=== PATIENT | male | born 1960 | race Asian ===

== ENCOUNTER 2019-02-20 01:31 | Inpatient (IN) ==
[2019-02-20] MEDS ORDERED: THIAMINE 100 MG in NS 50 ML IV ONE (03:12)
[2019-02-20] MEDS ORDERED: NS 1,000 ML IV ONE ×2 (03:12→04:26)
--- NOTE | 2019-02-20 03:16 | PROVIDER DOCUMENTATION ---
[id number] Abuse/Overdose - General Chief Complaint: Epigastric Pain Stated Complaint: epigastric pain Time Seen by Provider: 02/20/19 03:06 Source: patient Allergies/Adverse Reactions: Allergies Allergy/AdvReac Type Severity Reaction Status Date / Time No Known Allergies Allergy Verified 02/20/19 03:25 - History of Present Illness-Drug/Alcohol Nature of Presenting Problem: patient complains of needing help with his alcohol abuse. He states that he drinks alot, often. Last drink was yesterday. He states that he developed abdominal pain and bilateral hand numbness yesterday. No further detail was obtainable. Review of Systems - Adult - REVIEW OF SYSTEMS - ADULT Constitutional: reports: no symptoms reported Eyes: reports: no symptoms reported Ears, Nose, Mouth & Throat: reports: no symptoms reported Cardiovascular: reports: no symptoms reported Respiratory: reports: no symptoms reported Gastrointestinal: reports: see HPI Genitourinary: reports: no symptoms reported Musculoskeletal: reports: no symptoms reported Integumentary: reports: no symptoms reported Neurological: reports: see HPI Psychiatric: reports: no symptoms reported Endocrine: reports: no symptoms reported Hematologic/Lymphatic: reports: no symptoms reported Allergic/Immunologic: reports: no symptoms reported All Other Systems: Reviewed and Negative Past History - Adult - PAST MEDICAL HISTORY-ADULT Review of Records: reports: Old Records Reviewed Physical Exam-General - PHYSICAL EXAM-ADULT Initial Vital Signs Reviewed: Yes - CONSTITUTIONAL General Appearance: cachetic, slow to respond - EYES Eyes: PERRL/EOMI, pink conjunctivae - HEAD, EARS, NOSE, MOUTH & THROAT HENMT: normocephalic/atraumatic, moist mucous membranes - NECK Neck: non-tender, full range of motion - RESPIRATORY Respiratory: lungs clear, normal breath sounds - CARDIOVASCULAR Cardiovascular: normal peripheral pulses, regular rate, rhythm - GASTROINTESTINAL (ABDOMEN) Abdominal Exam: non tender, soft, no organomegaly - MUSCULOSKELETAL Back Exam: normal inspection, no CVA tenderness Extremity: normal range of motion - SKIN Integumentary: normal color, normal turgor - PSYCHIATRIC Psych/Mental Status: disheveled, depressed affect Progress - PLAN OF CARE/RESULTS Progress/Plan/Lab Results: Vital Signs - 8 hr 02/20/19 01:32 02/20/19 03:58 02/20/19 03:59 Temperature 97.9 F Pulse Rate 110 H Respiratory Rate 17 Blood Pressure 109/74 119/81 O2 Sat by Pulse Oximetry 99 99 99 02/20/19 04:00 02/20/19 04:02 02/20/19 04:10 Temperature Pulse Rate Respiratory Rate Blood Pressure 125/85 O2 Sat by Pulse Oximetry 100 99 99 02/20/19 04:20 02/20/19 04:30 02/20/19 04:32 Temperature Pulse Rate 96 H Respiratory Rate 18 Blood Pressure 133/86 O2 Sat by Pulse Oximetry 99 99 99 02/20/19 04:33 02/20/19 05:03 02/20/19 05:04 Temperature Pulse Rate 100 H Respiratory Rate Blood Pressure 132/77 O2 Sat by Pulse Oximetry 99 100 100 02/20/19 05:10 02/20/19 05:20 Temperature Pulse Rate Respiratory Rate Blood Pressure O2 Sat by Pulse Oximetry 100 98 Laboratory Results - last 24 hr 02/20/19 02/20/19 02/20/19 03:44 03:44 03:44 WBC 7.23 RBC 4.47 L Hgb 14.5 Hct 41.8 L MCV 93.5 MCH 32.4 H MCHC 34.7 RDW Std Deviation 14.9 H Plt Count 36 L* MPV 12.3 H Immature Gran % (Auto) 0.3 Neut % (Auto) 74.6 Lymph % (Auto) 16.6 L [place] % (Auto) 8.3 Eos % (Auto) 0.1 Baso % (Auto) 0.1 Immature Gran # (Auto) 0.02 Neut # (Auto) 5.39 Lymph # (Auto) 1.20 [place] # (Auto) 0.60 H Eos # (Auto) 0.01 Baso # (Auto) 0.01 Sodium 136 Potassium 4.1 Chloride 92 L Carbon Dioxide 12 L Anion Gap 32 BUN 11 Creatinine 0.9 Estimated GFR/1.73 m2 > 60 BUN/Creatinine Ratio 12 Glucose 107 H Calculated Osmolality 272 Calcium 8.7 L Total Bilirubin 1.74 H AST 150 H ALT 55 H Alkaline Phosphatase 320 H Total Protein 8.5 H Albumin 4.8 Globulin 3.7 Albumin/Globulin Ratio 1.3 Lipase 1090 H Plasma Lactate Urine Source Urine Color Urine Turbidity Urine pH Ur Specific [place] Urine Protein Ur Glucose (Stick) Ur Ketones (Stick) Urine Blood Urine Nitrite Urine Bilirubin Urobilinogen Dipstick Urine Leukocytes Urine WBC (Auto) Urine RBC (Auto) U Epithel Cells (Auto) Urine Bacteria (Auto) Urine Opiates Screen Ur Oxycodone Screen Ur Methadone, Qual Ur Barbiturates Screen Ur Phencyclidine Scrn Ur Amphetamines Screen U Benzodiazepines Scrn Urine Cocaine Screen U Cannabinoids Screen Plasma/Serum Ethyl Alc 233 H 02/20/19 02/20/19 02/20/19 03:44 04:30 04:30 WBC RBC Hgb Hct MCV MCH MCHC RDW Std Deviation Plt Count MPV Immature Gran % (Auto) Neut % (Auto) Lymph % (Auto) [place] % (Auto) Eos % (Auto) Baso % (Auto) Immature Gran # (Auto) Neut # (Auto) Lymph # (Auto) [place] # (Auto) Eos # (Auto) Baso # (Auto) Sodium Potassium Chloride Carbon Dioxide Anion Gap BUN Creatinine Estimated GFR/1.73 m2 BUN/Creatinine Ratio Glucose Calculated Osmolality Calcium Total Bilirubin AST ALT Alkaline Phosphatase Total Protein Albumin Globulin Albumin/Globulin Ratio Lipase Plasma Lactate 3.1 H Urine Source CLEAN CATCH Urine Color YELLOW Urine Turbidity CLEAR Urine pH 6.0 Ur Specific [place] 1.022 Urine Protein 300 A Ur Glucose (Stick) NEGATIVE Ur Ketones (Stick) >150 A Urine Blood MODERATE A Urine Nitrite NEGATIVE Urine Bilirubin SMALL A Urobilinogen Dipstick 2 A Urine Leukocytes NEGATIVE Urine WBC (Auto) <10 Urine RBC (Auto) <10 U Epithel Cells (Auto) <10 Urine Bacteria (Auto) NEGATIVE Urine Opiates Screen NONE DETECTED Ur Oxycodone Screen NONE DETECTED Ur Methadone, Qual NONE DETECTED Ur Barbiturates Screen NONE DETECTED Ur Phencyclidine Scrn NONE DETECTED Ur Amphetamines Screen NONE DETECTED U Benzodiazepines Scrn NONE DETECTED Urine Cocaine Screen NONE DETECTED U Cannabinoids Screen NONE DETECTED Plasma/Serum Ethyl Alc Orders Category Date Time Status Finger Stick Blood Sugar (ED) DIRECTED Care 02/20/19 03:[address] ABD/PELVIS W/IV CONT ONLY [CT] Stat Exams 02/20/19 04:26 Taken ALCOHOL BLOOD Stat Lab 02/20/19 03:44 Completed CBC WITH ELECTRONIC DIFF [HEME] Stat Lab 02/20/19 03:44 Completed COMPREHENSIVE METABOLIC PANEL [CHEM] Stat Lab 02/20/19 03:44 Completed LACTATE, PLASMA [CHEM] Stat Lab 02/20/19 03:44 Completed LIPASE [CHEM] Stat Lab 02/20/19 03:44 Completed URINALYSIS W/POSS RFLX CULT [URINALYSIS] Stat Lab 02/20/19 04:30 Completed URINE DRUG SCREEN Stat Lab 02/20/19 04:30 Completed 0.9% Sodium Chloride Inj [Ns] 1,000 ml Med 02/20/19 03:12 Discontinued IV 999 mls/hr 0.9% Sodium Chloride Inj [Ns] 1,000 ml Med 02/20/19 04:26 Discontinued IV 999 mls/hr Morphine Med 02/20/19 05:56 Once 2 mg IV NOW ONE Ondansetron [Zofran] Med 02/20/19 05:56 Once 4 mg IV NOW ONE Thiamine 100 mg Med 02/20/19 03:12 Discontinued 0.9% Sodium Chloride Inj [Ns] 50 ml IV NOW Result Diagrams: 02/20/19 03:44 02/20/19 03:44 - CT/MRI 1 CT Study: Abdomen, Pelvis Impression: See EMR Report (pancreatitis) - CONSULTS/PCP/HOSPITALIST Notification #1 *Consult/PCP/Hospitalist*: Dr. Smith Time Discussed: 05:57 Consult Disposition: Admit Departure - Departure Date of Disposition Decision: 02/20/19 Time of Disposition Decision: 05:53 DIAGNOSIS: Pancreatitis Qualifiers: Chronicity: acute Pancreatitis type: alcohol induced Acute pancreatitis complication: unspecified Qualified Code(s): K85.20 - Alcohol induced acute pancreatitis without necrosis or infection Disposition: ADMITTED INPATIENT 09 Certified Medical Emergency: Emergent Condition: Serious Referrals and Follow-Ups: None,PCP [Primary Care Provider] - - Critical Care Note This patient required my direct & personal management of CC.: No Attestation - Physician/ TONI Attestation Patient care was provided by Advanced Practice Provider:: No The physician spent face to face time with patient:: Yes Advanced Practice Provider documentation review:: Supervising physician onsite and consulted in the evaluation and care of this patient. The physician did have a face to face encounter with the patient.
[2019-02-20 04:06] LABS: BASO# 0.01 X1000 (0.0-0.2); BASO% 0.1 % (0.0-0.8); EOS# 0.01 X1000 (0.0-0.7); EOS% 0.1 % (0.0-10.0); HEMATOCRIT 41.8 % (42.0-52.0); HEMOGLOBIN 14.5 g/dL (14.0-18.0); IMM GRAN# 0.02 X1000 (0.0-0.04); IMM GRAN% 0.3 % (0.0-0.5); LYMPH% 16.6 % (20.5-51.1); MCH 32.4 PG (27-31); MCHC 34.7 g/dL (33-37); MCV 93.5 FL (81-99); MONO% 8.3 % (1.7-9.3); MPV 12.3 FL (7.4-10.4); NEUT# 5.39 X1000 (1.4-6.5); NEUT% 74.6 % (42.2-75.2); PLT 36 X1000 (130-400); RBC 4.47 XMIL (4.7-6.1); RDW 14.9 % (11.5-14.5); WBC 7.23 X1000 (4.8-10.8)
[2019-02-20 04:23] LABS: AGAP 32; ALB/GLOB RATIO 1.3; ALBUMIN 4.8 g/dL (3.5-5.0); ALKALINE PHOSPHATASE 320 U/L (32-122); BUN 11 mg/dL (8-22); CALCIUM 8.7 mg/dL (8.8-10.2); CHLORIDE 92 mmol/L (98-107); COSMO 272; CREATININE 0.9 mg/dL (0.7-1.2); ESTIMATED GFR > 60; GLUCOSE 107 mg/dL (70-104); GOT 150 U/L (10-34); GPT 55 U/L (10-44); LIPASE 1090 U/L (13-60); POTASSIUM 4.1 mmol/L (3.5-5.1); SODIUM 136 mmol/L (136-145); TCO2 12 mmol/L (25-35); TOTAL BILIRUBIN 1.74 mg/dL (0.20-1.00); TOTAL PROTEIN 8.5 g/dL (6.3-8.3)
[2019-02-20 04:39] LABS: URINE SOURCE CLEAN CATCH
[2019-02-20 04:42] LABS: BILIRUBIN URINE SMALL (NEGATIVE); BLOOD URINE MODERATE (NEGATIVE); COLOR YELLOW; GLUCOSE URINE NEGATIVE (NEGATIVE); KETONE URINE >150 mg/dL (NEGATIVE); LEUKOCYTES URINE NEGATIVE (NEGATIVE); NITRITE URINE NEGATIVE (NEGATIVE); PROTEIN URINE 300 mg/dL (NEGATIVE); SP GRAVITY URINE 1.022; TURBIDITY URINE CLEAR (CLEAR); UROBILINOGEN URINE 2 mg/dL (NORMAL)
[2019-02-20 04:43] LABS: UR EPITHELIAL CELLS <10 /HPF (<10); URINE BACTERIA NEGATIVE /HPF; URINE RBC <10 /HPF (<10); URINE WBC <10 /HPF (<10)
[2019-02-20 04:52] LABS: UR AMPHETAMINES QUAL NONE DETECTED (NONE DETECT); UR BARBITUATES QUAL NONE DETECTED (NONE DETECT); UR BENZODIAZEPIN QUAL NONE DETECTED (NONE DETECT); UR CANNABINOIDS QUAL NONE DETECTED (NONE DETECT); UR COCAINE QUAL NONE DETECTED (NONE DETECT); UR METHADONE QUAL NONE DETECTED (NONE DETECT); UR OPIATES QUAL NONE DETECTED (NONE DETECT); UR OXYCODONE QUAL NONE DETECTED (NONE DETECT); UR PCP QUAL NONE DETECTED (NONE DETECT)
[2019-02-20] MEDS ORDERED: ZOFRAN IV ONE (05:56)
[2019-02-20] MEDS ORDERED: MORPHINE IV ONE (05:56)
--- NOTE | 2019-02-20 07:11 | HISTORY AND PHYSICAL ---
PRIMARY CARE PHYSICIAN: Unknown. CHIEF COMPLAINT: Wants help with alcohol abuse and abdominal pain. HISTORY OF PRESENTING ILLNESS: A 58-year-old male with a history of HIV diagnosed in 2002 who had presented to emergency department with complaint of abdominal pain and having nausea, and not feeling well. Patient states that he drinks a lot. His last drink was yesterday and he wants to try to stop. He has been having abdominal pain and not feeling well and subsequently had come to the emergency department. In the ED, he was evaluated due to his presenting symptoms. It was thought that he will need admission for further management. At the time of my examination, patient denied any headache, fever, chills, chest pain, or shortness of breath, but complained of abdominal pain and nausea. PAST MEDICAL HISTORY: Includes HIV. PAST SURGICAL HISTORY: Right eye surgery. ALLERGIES: No known drug allergies. CURRENT MEDICATIONS: Does not recall and nursing will re-consult. SOCIAL HISTORY: A 40 pack year history of smoking. Admits to alcohol use daily. Denies any illicit drug use. FAMILY HISTORY: No history of coronary disease. REVIEW OF SYSTEMS: Fourteen point review of systems as in HPI. Other systems negative. PHYSICAL EXAMINATION: GENERAL: Cooperative and friendly male. He is resting comfortably now. VITAL SIGNS: Temperature 97.9 degrees, pulse 110 respirations 17, and blood pressure 109/74. HEENT: Atraumatic. Normocephalic. Extraocular movements are intact. PERRLA. Poor dentition. NECK: No masses. CHEST: Clear to auscultation. CARDIOVASCULAR: Regular rate and rhythm. ABDOMEN: Soft. Mild tenderness. EXTREMITIES: No edema. NEUROLOGIC: Awake, alert and oriented times 3. : No bladder distention. SKIN: Warm. LABORATORIES AND STUDIES: WBC 7.23, hemoglobin 14.5, hematocrit 41.8, and platelets 36,000. Sodium 136, potassium 4.1, and chloride 92. CO2 is 21, BUN is 11, creatinine 0.9, and glucose 107. Lipase is 1090. Alcohol level of 233. ASSESSMENT: A 58-year-old male with a history of HIV who had presented to the emergency department complaining of abdominal pain and not feeling well. He had laboratories drawn that did show elevated lipase consistent with pancreatitis. Subsequently, they will require admission for further management. 1. Acute pancreatitis. 2. HIV. 3. Thrombocytopenia. 4. Ongoing tobacco abuse. PLAN: 1. We will admit patient to medical floor with telemetry. 2. We will continue with supportive care with IV fluids, antiemetics, banana bag and pain control. 3. We will start his anti retroviral agents. 4. We will consult Hematology for further evaluation of his thrombocytopenia. 5. I counseled patient extensively on smoking cessation. 6. Placed patient on DVT prophylaxis with SCD's. 7. We will continue to follow and reassess. Make further recommendations based on clinical course. cc: Rodríguez Smith MD
[2019-02-20] MEDS ORDERED: NS 1,000 ML IV SCH (07:54)
--- NOTE | 2019-02-20 08:00 | Diag Imaging Result Doc PS360 ---
EXAM: CT ABD/PELVIS W/IV CONT ONLY HISTORY: pancreatitis TECHNIQUE: CT abdomen and pelvis with intravenous contrast COMPARISON: None. FINDINGS: There is pronounced fatty infiltration of the liver. No calcified gallstones or adjacent inflammation. The spleen is not enlarged. There is fluid and inflammation about the pancreas. No pancreatic pseudocyst or pancreatic calcifications. Thickening to the adrenal glands. Normal kidneys. No hydronephrosis. Normal aorta. No bowel obstruction. Normal appendix. No abscess. The urinary bladder is not distended. Prostate is not enlarged. There are bilateral hydroceles. IMPRESSION: 1.Acute pancreatitis 2.Prominent fatty infiltration of the liver 3.Bilateral hydroceles 4.A preliminary report was given at 5:45am. This exam was performed using automated exposure control, adjustment of mA or kV according to patient size, and/or use of iterative reconstruction technique. Electronically signed by Alan Hernandez 02/20/2019 7:58 AM
[2019-02-20] MEDS: ZOFRAN IV PRN (08:21)
[2019-02-20] MEDS ORDERED: M.V.I.-12 10 ML, FOLIC ACID 1 MG, MAGNESIUM SULFATE 1 GM, THIAMINE 100 MG in NS 1,000 ML IV ONE (09:00)
[2019-02-20 09:38] LABS: CHOLESTEROL 208 mg/dL (0-200); HDL 87 mg/dL (35-55); LDL 59 mg/dL; TRIGLYCERIDES 311 mg/dL (39-160); VLDL 62 mg/dL
--- NOTE | 2019-02-20 11:40 | Diag Imaging Result Doc PS360 ---
EXAM: US GB < RUQ (LIMITED) HISTORY: r/o cholelithiasis TECHNIQUE: Right upper quadrant ultrasound COMPARISON: None. FINDINGS: The pancreas and inferior vena cava are obscured. No aortic aneurysm. There is fatty infiltration of the liver. Normal right kidney. No hydronephrosis. There is a small amount of sludge/sludge balls within the gallbladder. No distinct stones. There is a small gallbladder polyp. Common bile duct measures 6 mm. IMPRESSION: Sludge within the gallbladder. Electronically signed by Alan Hernandez 02/20/2019 11:38 AM
[2019-02-20 12:06] LABS: ACETONE SERUM SMALL (NEGATIVE)
[2019-02-20 12:13] LABS: ACETAMINOPHEN < 1.2 ug/mL (10-30)
--- NOTE | 2019-02-20 12:46 | PROGRESS NOTE ---
DATE: 02/20/2019 SUBJECTIVE: This morning, Mr. Chauhan refers to be hurting some in the abdomen. He admits drinking a lot and that when he does not drink, he gets a headache and he gets very shaky. He came to the emergency department because of nausea and vomiting, abdominal pain. He has been found to have acute pancreatitis which we think etiology is alcohol related. OBJECTIVE: Vital signs: Currently, blood pressure is 142/71, pulse of 95, respirations 19, temperature 98.9. General: Mr. Chauhan is a 58-year-old [place] gentleman. He is in bed, in no distress. HEENT: Mucosa is slightly dry. He looks cachectic and chronically ill. Chest: Good air entry bilateral. No crepitations. No rhonchi. Cardiovascular: Regular rate and rhythm. Abdomen: Soft. Minimally tender in the right upper quadrant as well as the left upper quadrant and epigastrium. No rebound. No guarding. Bowel sounds present. Extremities: No pedal edema. 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 DIAGNOSTIC DATA: WBC is 7.23, hemoglobin is 14.5, platelet count of 36. Chemistry is also reviewed. Bicarb is 12. AST is 150, ALT is 55, alkaline phosphatase is also elevated. Lipase was 1090. Imaging studies including a CT scan of the abdomen did show acute pancreatitis, prominent fatty liver, bilateral hydrocele. Ultrasound has shown sludge within the gallbladder. Normal CBD. ASSESSMENT: 1. Acute pancreatitis, presumably alcohol induced. 2. Transaminitis secondary to alcohol hepatitis and alcohol induced fatty liver. 3. Mild triglyceridemia. 4. High anion gap metabolic acidosis secondary to lactic acid elevation. 5. Clinical volume depletion. 6. Gallbladder sludge. The patient will be evaluated by Surgery once clinically more stable from the pancreatitis standpoint. 7. History of human immunodeficiency virus/acquired immunodeficiency syndrome. The patient is on Atripla. He said his last CD4 count was about 1 month ago in [place], but he does not know the number. 8. Thrombocytopenia, presumably alcohol induced. However, other etiologies including the HIV and medications could all be contributing. We will continue to follow that. The patient is not actively bleeding. cc: MD BASIA Rincon
[2019-02-20] MEDS: DILAUDID IV PRN ×3 (13:53→23:59)
[2019-02-20] MEDS ORDERED: ATIVAN IV ONE (17:34)
[2019-02-20] MEDS: LR 1,000 ML IV SCH (17:45)
[2019-02-21] MEDS: LR 1,000 ML IV SCH ×3 (01:59→16:19)
[2019-02-21] MEDS: ATIVAN IV PRN ×2 (03:58→18:32)
[2019-02-21 07:29] LABS: BASO# 0.01 X1000 (0.0-0.2); BASO% 0.4 % (0.0-0.8); EOS# 0.01 X1000 (0.0-0.7); EOS% 0.4 % (0.0-10.0); HEMATOCRIT 31.9 % (42.0-52.0); HEMOGLOBIN 10.9 g/dL (14.0-18.0); LYMPH# 0.43 X1000 (1.2-3.4); LYMPH% 16.9 % (20.5-51.1); MCH 32.3 PG (27-31); MCHC 34.2 g/dL (33-37); MCV 94.7 FL (81-99); MONO# 0.21 X1000 (0.11-0.59); MONO% 8.2 % (1.7-9.3); MPV 11.7 FL (7.4-10.4); NEUT# 1.89 X1000 (1.4-6.5); NEUT% 74.1 % (42.2-75.2); RBC 3.37 XMIL (4.7-6.1); RDW 15.1 % (11.5-14.5); WBC 2.55 X1000 (4.8-10.8)
[2019-02-21 07:30] LABS: PLT 13 X1000 (130-400)
[2019-02-21 07:41] LABS: AGAP 20; ALB/GLOB RATIO 1.5; ALBUMIN 3.9 g/dL (3.5-5.0); ALKALINE PHOSPHATASE 227 U/L (32-122); BUN 10 mg/dL (8-22); C REACTIVE PROT QUANT 62.39 mg/L (0.00-5.00); CALCIUM 8.6 mg/dL (8.8-10.2); CHLORIDE 102 mmol/L (98-107); COSMO 276; CREATININE 0.9 mg/dL (0.7-1.2); ESTIMATED GFR > 60; GLUCOSE 129 mg/dL (70-104); GOT 91 U/L (10-34); GPT 35 U/L (10-44); POTASSIUM 3.7 mmol/L (3.5-5.1); SODIUM 138 mmol/L (136-145); TCO2 16 mmol/L (25-35); TOTAL PROTEIN 6.5 g/dL (6.3-8.3)
[2019-02-21 07:52] LABS: LYMPHS 24 % (21-51); MONO 2 % (1-9); SEGS 74 % (42-75)
[2019-02-21 09:57] LABS: IRON SATURATION 38 %; TIBC 165 ug/dL; TOTAL IRON 63 ug/dL (53-167); UNBOUND IRON 102 ug/dL (112-346)
[2019-02-21 10:11] LABS: INR 0.97; PROTIME 13.7 Seconds (11.0-16.0)
[2019-02-21 10:23] LABS: FERRITIN 1027 ng/mL (30-400)
[2019-02-21 10:26] LABS: D-DIMER 3.3 ug/mLFEU (0.0-0.52)
--- NOTE | 2019-02-21 10:54 | PROGRESS NOTE ---
DATE: 02/21/2019 SUBJECTIVE: Today Mr. Chauhan refers to be doing okay, a little better than yesterday. He still complains of abdominal discomfort. He was able to tolerate ice chips and sips of water. OBJECTIVE: Vital signs: Blood pressure is 126/74, pulse of 94, respirations 20, temperature 98.3 degrees. On general exam, Mr. Chauhan is a 54-year-old gentleman. He is in bed, no distress. He looks remarkably emaciated and chronically ill. Mucosa is pink and moist. Anicteric. Acyanotic. Neck is supple. Chest: Good air entry bilateral. There were no crepitations and no rhonchi. Cardiovascular: Regular rate and rhythm. No murmurs, no rubs, no gallops. Gastrointestinal: Abdomen is soft. It is still minimally tender all over, but no guarding and no rebound. Bowel sounds are present. Extremities: No pedal edema. Central Nervous System: Patient is awake, alert, and oriented. DIAGNOSTIC STUDIES: WBC is 2.55, hemoglobin is 10.9, platelet count is down to 13. The patient does not show any obvious signs of bleeding. Chemistry is also reviewed. AST is 91, ALT is down to 35, alkaline phosphatase is down to 227. C-reactive protein is 62.39 which has increased from yesterday. ASSESSMENT: 1. Alcohol-induced acute pancreatitis. We are going to continue with symptomatic management. 2. Alcohol-induced hepatitis with alcohol-induced fatty liver disease. 3. Mild triglyceridemia. 4. Clinical volume depletion with gap acidosis, improving. 5. Gallbladder sludge. The patient will be evaluated by Surgery at a later date when he is more stable. 6. History of human immunodeficiency virus/acquired immunodeficiency syndrome. Noted. 7. Pancytopenia, presumably a combination of alcohol and human immunodeficiency virus. Platelet count has significantly reduced today. I think it is all due to the ongoing pancreatitis inflammation. We will also do other studies to make sure the patient is not in DIC. 8. History of alcohol abuse, with signs of alcohol withdrawal on presentation, improved. Mr. Chauhan seems to be fairly stable. He is still symptomatic, so will keep him n.p.o. except for ice chips and sips of water. Jell-O is okay. We will continue with adequate pain control and IV fluids. There is a consult for Hematology/Oncology to see the patient. We will also consult Gastroenterology tomorrow. cc: Jatin Lin MD
[2019-02-21] MEDS: DILAUDID IV PRN (16:10)
[2019-02-22] MEDS: LR 1,000 ML IV SCH ×4 (00:05→20:41)
[2019-02-22] MEDS: ZOFRAN IV PRN (06:30)
[2019-02-22] MEDS: DILAUDID IV PRN ×2 (06:30→09:29)
[2019-02-22 08:14] LABS: AGAP 10; ALB/GLOB RATIO 1.3; ALBUMIN 3.3 g/dL (3.5-5.0); ALKALINE PHOSPHATASE 240 U/L (32-122); BUN 5 mg/dL (8-22); CALCIUM 8.5 mg/dL (8.8-10.2); CHLORIDE 98 mmol/L (98-107); COSMO 268; CREATININE 0.6 mg/dL (0.7-1.2); ESTIMATED GFR > 60; GLUCOSE 181 mg/dL (70-104); GOT 126 U/L (10-34); GPT 38 U/L (10-44); POTASSIUM 2.6 mmol/L (3.5-5.1); SODIUM 133 mmol/L (136-145); TCO2 25 mmol/L (25-35); TOTAL BILIRUBIN 1.46 mg/dL (0.20-1.00); TOTAL PROTEIN 5.9 g/dL (6.3-8.3)
[2019-02-22 08:15] LABS: MAGNESIUM 1.7 mg/dL (1.5-2.7)
[2019-02-22 08:16] LABS: C REACTIVE PROT QUANT 45.17 mg/L (0.00-5.00)
[2019-02-22 08:21] LABS: EOS# 0.02 X1000 (0.0-0.7); EOS% 1.1 % (0.0-10.0); HEMATOCRIT 28.8 % (42.0-52.0); HEMOGLOBIN 10.1 g/dL (14.0-18.0); LIPASE 442 U/L (13-60); LYMPH% 21.5 % (20.5-51.1); MCH 32.1 PG (27-31); MCHC 35.1 g/dL (33-37); MCV 91.4 FL (81-99); MONO% 10.8 % (1.7-9.3); MPV 13.6 FL (7.4-10.4); NEUT# 1.24 X1000 (1.4-6.5); NEUT% 66.6 % (42.2-75.2); PLT 13 X1000 (130-400); RBC 3.15 XMIL (4.7-6.1); RDW 14.3 % (11.5-14.5); WBC 1.86 X1000 (4.8-10.8)
[2019-02-22 08:24] LABS: PHOSPHORUS < 0.3 mg/dL (2.7-4.5)
[2019-02-22] MEDS ORDERED: POTASSIUM PHOSPHATE 60 MEQ in NS 250 ML IV ONE (08:35)
[2019-02-22] MEDS ORDERED: MAGNESIUM SULFATE 4 GM/S.W.I. 4 GM/100 ML IVPB IV ONE (08:36)
[2019-02-22 09:02] LABS: BANDS 12 % (0-1); EOS 4 % (1-10); LYMPHS 18 % (21-51); SEGS 66 % (42-75)
--- NOTE | 2019-02-22 10:19 | Diag Imaging Result Doc PS360 ---
EXAM: CHEST-2 VIEWS HISTORY: hypoxia TECHNIQUE: Chest two views COMPARISON: None. FINDINGS: The lungs are well expanded. The heart is not enlarged. The vessels are not distended. There are no infiltrates. No pleural effusions. IMPRESSION: No acute abnormality. Electronically signed by Alan Hernandez 02/22/2019 10:16 AM
--- NOTE | 2019-02-22 10:37 | EKG Report ---
Test Performed on : 02/20/2019 02:10:00 AM Test Reason : ED. NO EKG ORDER FOR MUSE Blood Pressure : / mmHG Vent. Rate : 092 BPM Atrial Rate : 092 BPM P-R Int : 200 ms QRS Dur : 074 ms QT Int : 348 ms P-R-T Axes : 062 070 057 degrees QTc Int : 430 ms Normal sinus rhythm. Normal ECG No previous ECGs available Unconfirmed Result
[2019-02-22] MEDS: MERREM 1 GM in NS 50 ML IV SCH ×2 (11:44→18:29)
[2019-02-22 15:20] LABS: AGAP 14; ALBUMIN 3.5 g/dL (3.5-5.0); BUN 4 mg/dL (8-22); CALCIUM 8.2 mg/dL (8.8-10.2); CHLORIDE 98 mmol/L (98-107); COSMO 267; CREATININE 0.5 mg/dL (0.7-1.2); ESTIMATED GFR > 60; GLUCOSE 132 mg/dL (70-104); PHOSPHORUS 1.6 mg/dL (2.7-4.5); POTASSIUM 3.2 mmol/L (3.5-5.1); SODIUM 134 mmol/L (136-145); TCO2 22 mmol/L (25-35)
[2019-02-22] MEDS ORDERED: NEUTRA-PHOS PO ONE (15:26)
[2019-02-22] MEDS ORDERED: KLOR-CON PO ONE (15:27)
[2019-02-22] MEDS: ATIVAN IV PRN (16:49)
[2019-02-22] MEDS: NEUTRA-PHOS PO SCH (20:42)
[2019-02-22] MEDS: MAG-OX PO SCH (20:42)
[2019-02-23] MEDS: LR 1,000 ML IV SCH ×4 (02:35→22:19)
[2019-02-23] MEDS: MERREM 1 GM in NS 50 ML IV SCH ×3 (02:35→17:51)
[2019-02-23] MEDS: DILAUDID IV PRN ×3 (02:36→16:50)
[2019-02-23 07:40] LABS: EOS# 0.02 X1000 (0.0-0.7); EOS% 0.9 % (0.0-10.0); HEMATOCRIT 30.5 % (42.0-52.0); HEMOGLOBIN 10.6 g/dL (14.0-18.0); LYMPH# 0.42 X1000 (1.2-3.4); LYMPH% 18.9 % (20.5-51.1); MCH 31.8 PG (27-31); MCHC 34.8 g/dL (33-37); MCV 91.6 FL (81-99); MONO# 0.27 X1000 (0.11-0.59); MONO% 12.2 % (1.7-9.3); MPV 12.1 FL (7.4-10.4); NEUT# 1.51 X1000 (1.4-6.5); PLT 26 X1000 (130-400); RBC 3.33 XMIL (4.7-6.1); RDW 14.6 % (11.5-14.5); WBC 2.22 X1000 (4.8-10.8)
[2019-02-23 07:46] LABS: AGAP 9; ALB/GLOB RATIO 1.5; ALBUMIN 3.1 g/dL (3.5-5.0); ALKALINE PHOSPHATASE 226 U/L (32-122); BUN 2 mg/dL (8-22); CALCIUM 7.9 mg/dL (8.8-10.2); CHLORIDE 97 mmol/L (98-107); COSMO 264; CREATININE 0.5 mg/dL (0.7-1.2); ESTIMATED GFR > 60; GLUCOSE 131 mg/dL (70-104); GOT 126 U/L (10-34); GPT 43 U/L (10-44); POTASSIUM 2.9 mmol/L (3.5-5.1); SODIUM 133 mmol/L (136-145); TCO2 27 mmol/L (25-35); TOTAL BILIRUBIN 0.99 mg/dL (0.20-1.00); TOTAL PROTEIN 5.2 g/dL (6.3-8.3)
[2019-02-23 08:04] LABS: BANDS 22 % (0-1); EOS 4 % (1-10); LYMPHS 16 % (21-51); MONO 2 % (1-9); SEGS 56 % (42-75)
[2019-02-23] MEDS: NEUTRA-PHOS PO SCH ×4 (09:36→22:19)
[2019-02-23] MEDS: MAG-OX PO SCH ×2 (09:36→22:19)
[2019-02-23] MEDS: ATIVAN IV PRN ×2 (09:43→13:03)
[2019-02-23] MEDS ORDERED: POTASSIUM CHLORIDE 60 MEQ in NS 500 ML IV ONE (14:32)
[2019-02-23] MEDS ORDERED: AMBIEN PO PRN (14:46)
[2019-02-24] MEDS: MERREM 1 GM in NS 50 ML IV SCH ×3 (01:31→17:28)
[2019-02-24] MEDS: DILAUDID IV PRN ×4 (02:07→17:28)
[2019-02-24] MEDS: LR 1,000 ML IV SCH ×4 (04:15→18:30)
[2019-02-24 07:11] LABS: BASO# 0.01 X1000 (0.0-0.2); BASO% 0.4 % (0.0-0.8); EOS# 0.03 X1000 (0.0-0.7); EOS% 1.3 % (0.0-10.0); HEMATOCRIT 30.7 % (42.0-52.0); HEMOGLOBIN 10.7 g/dL (14.0-18.0); LYMPH# 0.49 X1000 (1.2-3.4); LYMPH% 20.4 % (20.5-51.1); MCH 32.2 PG (27-31); MCHC 34.9 g/dL (33-37); MCV 92.5 FL (81-99); MONO# 0.35 X1000 (0.11-0.59); MONO% 14.6 % (1.7-9.3); MPV 11.9 FL (7.4-10.4); NEUT# 1.52 X1000 (1.4-6.5); NEUT% 63.3 % (42.2-75.2); PLT 34 X1000 (130-400); RBC 3.32 XMIL (4.7-6.1); RDW 14.5 % (11.5-14.5)
[2019-02-24 07:28] LABS: AGAP 3; ALBUMIN 3.4 g/dL (3.5-5.0); BUN 1 mg/dL (8-22); CALCIUM 8.2 mg/dL (8.8-10.2); CHLORIDE 92 mmol/L (98-107); COSMO 259; CREATININE 0.4 mg/dL (0.7-1.2); ESTIMATED GFR > 60; GLUCOSE 134 mg/dL (70-104); PHOSPHORUS 1.6 mg/dL (2.7-4.5); POTASSIUM 4.1 mmol/L (3.5-5.1); SODIUM 130 mmol/L (136-145); TCO2 35 mmol/L (25-35)
--- NOTE | 2019-02-24 08:13 | PROGRESS NOTE ---
DATE: 02/22/2019 SUBJECTIVE: This morning Mr. Chauhan refers to still have some abdominal discomfort but he thinks he is doing better. OBJECTIVE: Vitals: Blood pressure is 123/86, pulse 83, respirations 18, and temperature 98.4. The patient did have a little temperature of 99.7 earlier on today. General: Mr. Jimenez is a 58-year-old [place]ian gentleman. He is in bed. He is not in any distress. He looks remarkably cachectic and chronically ill. Mucosa is pink and moist. Anicteric and acyanotic. Neck is supple. Respiratory: Good air entry bilaterally. There are no crepitations. No rhonchi. No accessory muscle use. Cardiovascular: Regular rate and rhythm. No murmurs, no rubs. No gallops. GI: Abdomen is soft. He is minimally tender especially in both flanks, but no rebound and no guarding. Bowel sounds are present. Extremities: No pedal edema. Distal pulses present. CHANNEL EXECUTIVE: The patient is awake, alert and oriented. There are no focal neurological deficit. LABORATORY DATA: WBC is 1.85, hemoglobin 10.1, platelet count of 13,000. The patient had 15% of bands on peripheral smear. Chemistry is also reviewed. Potassium is 2.6. Renal function test is normal. Phosphorus is less than 0.3. AST is slightly elevated. ALT is normal. Lipase is down to 442. C-reactive protein is also down to 45.17. ASSESSMENT: 1. Alcohol induced acute pancreatitis. We will continue with symptomatic management. 2. Alcohol induced hepatitis with alcohol fatty liver disease. 3. Clinical volume depletion improved. 4. Gallbladder sludge. Unsure if this could have been contributing as well to the patient's acute pancreatitis. Surgery has been consulted. 5. History of HIV with AIDS. The patient is currently on Atripla, and we will start her on her new medications. 6. Pancytopenia, most likely secondary to a combination of alcohol, HIV, and ongoing pancreatitis. The patient's WBC has remarkably reduced, and platelet is also low. We will get Hem/Onc to evaluate the patient as well. 7. History of alcohol abuse with signs of alcohol withdrawal on presentation improved. 8. Severe hypophosphatemia with other electro-mineral abnormalities. We will continue to replace all of these and repeat the phosphors for later today. 9. Leukopenia with bandemia. The patient also had mild elevation in temperature. I am not sure if there is any source of an infection so we are waiting to start the patient on broad spectrum IV antibiotics. We will culture his blood. I have done a chest x-ray which has come back unremarkable for any pneumonia. In general, Mr. Chauhan is an [place] gentleman who is known to have HIV AID's on Atripla. He came to the emergency department because of abdominal pain. He was found to have acute pancreatitis which we presume is alcohol induced. He is also an alcoholic and presented with signs and symptoms of mild withdrawal. He seems to be clinically stable, however, his CBC numbers continues to decline. Hem/Onc has been consulted to evaluate the patient. The patient also has been found to have electrolyte abnormalities including severe hypophosphatemia which would be very common with his alcohol state. This is being replaced. We will follow up with further recommendations from Hem/Onc. Surgery has also been consulted because of the gallbladder abnormality found on imaging. cc: Jatin Lin MD MTDD
[2019-02-24] MEDS: NEUTRA-PHOS PO SCH ×4 (09:46→21:18)
[2019-02-24] MEDS: MAG-OX PO SCH ×2 (09:46→21:18)
[2019-02-24] MEDS ORDERED: SODIUM PHOSPHATE 35 MMOL in NS 250 ML IV ONE (14:12)
--- NOTE | 2019-02-24 15:35 | PROGRESS NOTE ---
DATE: 02/24/2019 SUBJECTIVE: The patient reports feeling fine. No abdominal discomfort. No nausea/vomiting. No fever. OBJECTIVE: Vital Signs: Temperature degrees, heart rate 101, respiratory rate 16, blood pressure 138/91, O2 saturation 100% on room air. General Examination: This is a chronically ill-appearing 58-year-old male, lying in bed, in no acute distress. He looks remarkably cachectic. Neck: No JVD noted. No carotid bruits. No lymphadenopathy. No thyromegaly. Cardiovascular: S1, S2 heard. No murmurs, gallops, or rubs. Regular rate and rhythm. Respiratory: Clear bilaterally to auscultation. No work of breathing or using accessory muscles. Abdomen: Soft. Nontender to palpation. Bowel sounds present. No organomegaly. No signs of peritoneal irritation. Neurological: Patient alert, oriented x3. Moves 4 extremities. Extremities: No clubbing, cyanosis, or edema. DIAGNOSTIC STUDIES: Laboratory data remarkable for platelets 34,000, hemoglobin 10.7, white cell count 2.40. BMP remarkable for sodium 132, creatinine 0.4, phosphorus 1.6. ASSESSMENT AND PLAN: 1. Alcohol-induced acute pancreatitis. Continues to improve clinically. No pain at this time. 2. Alcohol-induced hepatitis with alcoholic fatty liver disease. We will continue with IV fluids. He is clinically feeling better. 3. History of human immunodeficiency virus with acquired immunodeficiency syndrome. We will continue with the current medication which is Atripla. 4. Pancytopenia, most likely related to alcohol consumption plus human immunodeficiency virus. Platelets are getting better. We will continue to monitor CBC. 5. History of alcohol abuse with signs of alcohol withdrawal on presentation. Now it is much better. 6. Acute severe hypophosphatemia. We will continue to replete phosphorus. DISPOSITION: At this point, patient is clinically getting better. I think we will continue to monitor CBC to make sure that he has a good amount of platelets in order to be discharged. cc: Dre Schuster MD
--- NOTE | 2019-02-24 18:03 | GENERAL SURGERY CONSULTATION ---
DATE: 02/22/2019 REASON FOR CONSULTATION: Pancreatitis and gallbladder sludge. HISTORY OF PRESENT ILLNESS: This is a 58-year-old male who presented to the hospital with a 5-day history of intermittent abdominal pain that began in his upper abdomen and radiated around both sides with associated nausea and vomiting. He has been drinking quite heavily which is a chronic problem for him. He denies fevers or other systemic complaints. The pain does not have any exacerbating, but it did feel some better after a bowel movement. PAST MEDICAL HISTORY: 1. Alcohol abuse. 2. HIV positive. PAST SURGICAL HISTORY: Eye surgery. HOME MEDICATIONS: Efavirenz/emtricitabine/tenofovir. ALLERGIES: No known drug allergies. SOCIAL HISTORY: He used to smoke, but quit. He drinks alcohol heavily. He denies any illicit IV drug use. FAMILY HISTORY: Reviewed and noncontributory. REVIEW OF SYSTEMS: Ten systems reviewed and negative except as noted above. PHYSICAL EXAMINATION: Vital Signs: Temperature 98.4 degrees, pulse 83, respirations 18, blood pressure 123/86, O2 saturation 100%. General: A chronically ill-appearing male in no distress, who looks his stated age. HEENT: Normocephalic, atraumatic. Extraocular muscles intact. Pupils equal, round, and reactive to light. Sclerae anicteric. Moist mucous membranes. Neck: Supple. No thyromegaly. Lymph: No cervical supraclavicular or periumbilical lymph nodes appreciated. Cardiovascular: Regular rate and rhythm. Respiratory: Bilateral breath sounds. No work of breathing. Gastrointestinal: Soft, nondistended. Mildly tender all over. No rebound or guarding. No hernias. No organomegaly or mass appreciated. Extremities: No clubbing, cyanosis, or edema. Skin: Warm and dry. No rash. Musculoskeletal: Moves all extremities equally and well. DIAGNOSTIC STUDIES: White blood cell count 1.8, hemoglobin 10.1, hematocrit 28.8, platelet count 213,000. Sodium 134, potassium 3.2, chloride 98, CO2 of 22, BUN 4, creatinine 0.5, glucose 132, total bilirubin 1.5, AST 126, ALT 38, alkaline phosphatase 240. Lipase 442 down from 1090. Serum alcohol level on admission 233. Otherwise, urine drug screen was negative. CT of abdomen and pelvis shows inflammatory changes around the pancreas consistent with pancreatitis. Abdominal ultrasound shows sludge in the gallbladder, but without a thickened wall or pericholecystic fluid. ASSESSMENT AND PLAN: A 58-year-old male with pancreatitis, likely secondary to alcohol abuse. He potentially has a biliary source due to the gallbladder sludge, but he does not appear to have acute or even a history for chronic cholecystitis. He also has thrombocytopenia, leukopenia and known human immunodeficiency virus. At this time, I would not recommend any operation, just supportive care and further evaluation of his pancytopenia. I will follow along with you. cc: Sidney Tellez MD
--- NOTE | 2019-02-24 19:04 | HEMO/ONC CONSULTATION ---
DATE: 02/22/2019 REQUESTING PHYSICIAN: Dr. Arreguin. REASON FOR CONSULTATION: Thrombocytopenia. HISTORY OF PRESENT ILLNESS: Mr. Chauhan is a very pleasant, 58-year-old male with a history of HIV who was admitted on 02/20/2019 with complaints of abdominal pain and nausea. He was found to have an elevated lipase at the time of 1090. CT of the abdomen and pelvis was consistent with acute pancreatitis as well as prominent fatty infiltration of the liver. He was additionally notably thrombocytopenic at that time with a platelet count of 36,000. He was admitted for further evaluation and workup. Over the past 2 days, he has developed pancytopenia which is likely multifactorial given his history of HIV as well as acute pancreatitis. White blood cell count now 1.86, hemoglobin 10.1, hematocrit 28.8, platelet count down to 13,000. We have been asked to evaluate. PAST MEDICAL HISTORY: 1. HIV diagnosed in 2002. He reports he follows up with a physician in [place], [place] for treatment. 2. Thrombocytopenia. He does note that over the past 1 to 2 months, he has had evidence of a low platelet count but is unsure of the range. 3. Chickenpox. PAST SURGICAL HISTORY: Right eye surgery. ALLERGIES: No known drug allergies. HOME MEDICATIONS: Atripla 1 tablet p.o. daily. SOCIAL HISTORY: He has a 40 pack-year history of smoking. Reports that he quit in 2002 when he was diagnosed with HIV. He admits to alcohol use daily, approximately 2 to 3 beers per day. Denies any illicit drug use. FAMILY HISTORY: No known bleeding or clotting disorders. REVIEW OF SYSTEMS: Twelve point review of systems reviewed and negative except as mentioned above in the HPI. PHYSICAL EXAMINATION: Vital Signs: Temperature 97.9, respirations 18, pulse 86, blood pressure 126/75, O2 saturation 98% on room air. General: This is a chronically ill-appearing, [place] male lying in bed, in no apparent distress. He is unaccompanied. Eyes: Pupils equal, round, and reactive to light. Mouth: Oral mucosa normal. Poor dentition is noted. CV: Regular rate and rhythm. S1-S2. Pulmonary: Lung sounds are clear to auscultation bilaterally and nonlabored. GI: Abdomen is soft, nontender, nondistended. Bowel sounds present in all 4 quadrants. Musculoskeletal: No bony abnormalities. Skin: No petechiae, ecchymosis, or rash. LABORATORY DATA: From 02/22/2019, white blood cell count 1.86, hemoglobin 10.1, hematocrit 28.8, platelets 13,000. Sodium 134, potassium 3.2, chloride 98, CO2 22, BUN 4, creatinine 0.5, glucose 132, calcium 8.2. Noted labs from 02/21/2019, PT 13.7, INR 0.97, fibrinogen 319, D-dimer 3.30. Iron 63, TIBC 165, percent saturation 38, ferritin 1027. LDH 176. B12 827, folate 14.3. RADIOLOGY: A CT of the abdomen and pelvis from 02/20/2019. Impression: Acute pancreatitis, prominent fatty infiltration of the liver, bilateral hydroceles. Abdominal ultrasound from 02/20/2019. Impression: Sludge within the gallbladder. Chest x-ray from 02/22/2019. Impression: No acute abnormality. ASSESSMENT AND PLAN: 1. Pancytopenia, multifactorial. This is likely a combination of human immunodeficiency virus, alcohol abuse with alcohol-induced fatty liver disease. Along with our current workup, we will additionally add TSH, T4, SPEP, and PTT. All workup thus far has been unremarkable aside from an elevated D-dimer. We will continue to monitor and transfuse platelets as needed. Hemoglobin and hematocrit are decreased but stable at 10.1 and 28.8, likely dilutional given intravenous hydration. The leukopenia with neutropenia could additionally be caused from pancreatitis and current antibiotic therapy. We will continue to monitor with CBC daily. 2. Alcohol-induced pancreatitis. Lipase continues to trend down. The patient is currently receiving intravenous hydration and pain control. His symptoms are well controlled at present. Continue to monitor closely for evidence of alcohol withdrawal. Management per primary. 3. History of human immunodeficiency virus diagnosed in 2002. He will continue on his current antiviral medication per primary care. 4. Alcohol-induced hepatitis with alcohol-induced fatty liver disease as noted above, likely contributing to #1. We will continue to monitor CMP daily. 5. The above findings represent the assessment and plan of Dr. Serjio Man. Thank you for allowing us to participate in the care of this patient. We will follow closely. Dictated by ABDOULAYE Church for Serjio Man MD cc: ABDOULAYE Church MD
[2019-02-25] MEDS: MERREM 1 GM in NS 50 ML IV SCH ×2 (01:22→09:27)
[2019-02-25] MEDS: LR 1,000 ML IV SCH (01:22)
[2019-02-25 07:07] LABS: BASO# 0.01 X1000 (0.0-0.2); BASO% 0.4 % (0.0-0.8); EOS# 0.03 X1000 (0.0-0.7); EOS% 1.3 % (0.0-10.0); HEMATOCRIT 33.5 % (42.0-52.0); HEMOGLOBIN 11.6 g/dL (14.0-18.0); LYMPH# 0.45 X1000 (1.2-3.4); LYMPH% 18.8 % (20.5-51.1); MCHC 34.6 g/dL (33-37); MCV 92.3 FL (81-99); MONO# 0.47 X1000 (0.11-0.59); MONO% 19.6 % (1.7-9.3); MPV 11.6 FL (7.4-10.4); NEUT# 1.44 X1000 (1.4-6.5); NEUT% 59.9 % (42.2-75.2); PLT 41 X1000 (130-400); RBC 3.63 XMIL (4.7-6.1); RDW 14.6 % (11.5-14.5)
[2019-02-25 07:24] LABS: ALB/GLOB RATIO 1.8; ALBUMIN 3.5 g/dL (3.5-5.0); DIRECT BILIRUBIN 0.8 mg/dL (0.00-0.20); TOTAL BILIRUBIN 1.14 mg/dL (0.20-1.00); TOTAL PROTEIN 5.4 g/dL (6.3-8.3)
[2019-02-25 07:27] LABS: AGAP 8; ALBUMIN 3.4 g/dL (3.5-5.0); BUN 2 mg/dL (8-22); CALCIUM 8.8 mg/dL (8.8-10.2); CHLORIDE 92 mmol/L (98-107); COSMO 265; CREATININE 0.5 mg/dL (0.7-1.2); ESTIMATED GFR > 60; GLUCOSE 137 mg/dL (70-104); POTASSIUM 4.2 mmol/L (3.5-5.1); SODIUM 133 mmol/L (136-145); TCO2 33 mmol/L (25-35)
[2019-02-25 09:12] VITALS: BP 133/77
[2019-02-25] MEDS: MAG-OX PO SCH (09:28)
[2019-02-25] MEDS: DILAUDID IV PRN (09:29)
[2019-02-25] MEDS: NEUTRA-PHOS PO SCH (09:29)
[2019-02-25] MEDS: ZOFRAN IV PRN (09:29)
[2019-02-25] MEDS ORDERED: NORCO-10 PO PRN (11:53)
--- NOTE | 2019-02-25 20:43 | PROGRESS NOTE ---
DATE: 02/23/2019 SUBJECTIVE: The patient reports feeling fine. He actually requests medication for insomnia. Other than that, he reports that he is feeling weak but he is doing okay. OBJECTIVE: Vitals: Temperature 98.0 degrees, heart rate 90, respiratory rate 18, blood pressure 136/81, oxygen saturation 98% on room air. General: This is a 58-year-old chronically ill looking male lying in bed in no acute distress. Cardiovascular: S1, S2 heard. No murmurs, rubs or gallops heard. Regular rate and rhythm. Respiratory: Clear to auscultation bilaterally. No work of breathing or using accessory muscles. Abdomen: Soft, a little bit tender to palpation but there are no signs of peritoneal irritation. Bowel sounds present. No organomegaly. Extremities: No clubbing, cyanosis or edema. Peripheral pulses are present. Neurological: Patient is alert and oriented x 3. Moves all 4 extremities. LABORATORY DATA: White blood cell count 2.22, hemoglobin 10.6, hematocrit 30.5, platelets 26. BMP remarkable for creatinine of 0.5 with potassium 2.9, sodium 133. ASSESSMENT AND PLAN: 1. Alcohol-induced acute pancreatitis. Continue with pain medications and IV fluids. The patient is on a clear liquid diet. 2. Alcohol-induced hepatitis with alcohol-induced fatty liver disease. Aware. We continue with current management. 3. Volume depletion. Patient continues with fluids. 4. HIV infection with pancytopenia. Platelets are a little bit better today compared to yesterday. We will continue to monitor this patient closely. 5. History of alcohol abuse, stable. 6. Disposition: At this point, we will continue to monitor this patient closely. We will continue to treat this acute pancreatitis and watch him for his severe thrombocytopenia. cc: Dre Schuster MD [facility]
--- NOTE | 2019-02-26 11:43 | GENERAL SURGERY PROGRESS NOTE ---
DATE: 02/23/2019 SUBJECTIVE: The patient has some abdominal pain but not severe. He did eat some food without nauseas or vomiting. OBJECTIVE: He is afebrile. Vital signs are stable. General: He is awake and alert, oriented x3. No acute distress. Gastrointestinal: Soft, minimal tenderness, nondistended. LABORATORY: White blood count 2.2. Hemoglobin 10.6. Hematocrit 30. Platelet count 26,000. Electrolytes reviewed and are stable. ASSESSMENT AND PLAN: A 58-year-old male with pancreatitis likely secondary to alcohol, less likely due to biliary sludge. He also is HIV position. He is pancytopenic. At this point he is not a good surgical candidate. I will follow along but would probably recommend future laparoscopic cholecystectomy when he has quit drinking, or if he has quit drinking. cc: Sidney Tellez MD
--- NOTE | 2019-02-26 13:14 | DISCHARGE SUMMARY ---
ADMISSION DATE: 02/20/2019 DISCHARGE DATE: 02/25/2019 PRIMARY CARE PHYSICIAN: None. DISCHARGING PHYSICIAN: Dr. Chatman. ADMITTING DIAGNOSES: 1. Acute pancreatitis. 2. HIV. 3. Thrombocytopenia. 4. Ongoing tobacco abuse. DISCHARGE DIAGNOSES: 1. HIV. 2. Alcohol abuse. 3. Alcohol-induced pancreatitis, improved. 4. Alcohol-induced hepatitis, improved. 5. Alcoholic fatty liver disease. HOSPITAL COURSE: Ms. Chauhan is a 58-year-old male with a history of HIV diagnosed in 2002, who presents to the emergency department with complaints of abdominal pain. He is having nausea, and he was not feeling well. The patient states that he drinks a lot, and that he was drinking prior to admission. He was trying to stop, but he was having abdominal pain and not feeling well, and subsequently he went to the emergency room. The ER finding showed that he had platelet counts of 36, lipase of 1090, and alcohol level of 233. He was then admitted to the medical floor. He was started on IV fluids. They gave him a banana bag and pain control. He was started back on his anti retroviral agent. Hematology was consulted. Ultrasound of the gallbladder showed sludge within the gallbladder Dr. Tellez was consulted. He did not recommend any surgery at this time. He just recommended supportive care. Hematology just recommends to continue on his anti retroviral therapy, and the patient is to discontinue alcohol cessation. The patient's numbers have continued to improve throughout the hospital stay. Platelet counts are now hanging around 41. Hemoglobin is now 11 and 33. The patient is feeling much better. He will be discharged today. He is to follow up with Dr. Man as he is instructed to him. He is to follow up with his primary care physician in 1 week, and to call the list that we have provided to him. He is to follow up with Dr. Sidney Tellez. HOME MEDICATIONS: 1. Atripla 1 tablet p.o. daily. 2. Tioga 10's 1 tablet p.o. q.4 hours p.r.n. for pain. ACTIVITIES: As tolerated. DIET: Regular diet as tolerated. Dictated by ABDOULAYE Archer for Dre Schuster MD cc: MD Serjio Bowden MD Jason R. Seale, MD
--- NOTE | 2019-02-26 13:17 | DISCHARGE SUMMARY ---
ADMISSION DATE: 02/20/2019 DISCHARGE DATE: 02/25/2019 PRIMARY CARE PHYSICIAN: None. ADMISSION DIAGNOSES: 1. Acute pancreatitis. 2. HIV. 3. Thrombocytopenia. 4. Ongoing tobacco abuse. DISCHARGE DIAGNOSES: 1. Alcohol induced acute pancreatitis. 2. Alcohol-induced hepatitis with alcoholic fatty liver disease. 3. History of HIV with AIDS. 4. Pancytopenia. 5. History of alcohol abuse with signs of alcohol withdrawal on presentation. 6. Acute severe hypophosphatemia. SUMMARY OF FINDINGS: This is a 58-year-old male who was diagnosed with HIV in 2002, who presents to the emergency room with complaints of abdominal pain, having nausea, and not feeling well. He states that he drinks a lot, and his last drink was the day prior to arriving and wants to try to stop having abdominal pain. He was still not feeling well so he came to the emergency room. He was found to have a lipase of 1090. Alcohol level was 233. Platelets were 36,000. White blood cell count 7.23. He was admitted and placed on IV fluids, antiemetics, banana bag, and pain control. Continue his anti retroviral agents. Consulted Hematology to evaluate his thrombocytopenia. I discussed smoking and alcohol cessation with this patient. His abdominal ultrasound showed sludge in the gallbladder, but without a thickened wall or pericholecystic fluid. Surgery saw him, and felt that he did not appear to have an acute or even a history of chronic cholecystitis. At this time, would not recommend any operation just supportive care and further evaluation of his pancytopenia. His platelet count is now back up to 41 today. He does still remain pancytopenic, but it is felt that he can safely be discharged home today. DISCHARGE MEDICATIONS: 1. Epes 10 1 p.o. q.4 hours p.r.n. 2. Atripla 1 p.o. daily. FOLLOW-UP: He will need to follow up with Hematology and General Surgery in the next 1 to 2 weeks, and call their offices for an appointment. TIME SPENT: This is a 33 minute discharge. Dictated by ABDOULAYE Castillo for Dre Schuster MD Addendum: Patient seen and examined by myself. Agree with ABDOULAYE note. It reflects my assessment and plan. Patient is being discharged from hospital in stable condition. Patient advised to find out a primary care doctor. cc: ABDOULAYE Castillo MD MTDD
== END 2019-02-25 15:28 | disposition home or self-care (01) | DRG 439 ==
LOC: EDBD → SUPCPDRO → ED 01:31 → 3N 07:30 → SUATTDRO 07:30 → 3N 02-21 09:52
PROVIDERS: ATTEND Internal Medicine
CPT/HCPCS: 71020; 71046; 74177; 76705; 80048; 80053; 80061; 80069; 80076; 80101; 80301; 80307; 80320; 80324; 80329; 80345; 80346; 80353; 80358; 80361; 80365; 81001; 82003; 82009; 82055; 82607; 82728; 82746; 82784; 83010; 83540; 83550; 83605; 83615; 83690; 83735; 83992; 84100; 84155; 84165; 84439; 84443; 85025; 85379; 85384; 85610; 85730; 86140; 86334; 87040; 93005; 96361; 96365; 96375; 97110; 97116; 97162; 97530; 99285; A9270; G0431; G0434; G0479; G0480; G6039; G6040; J1170; J2060; J2185; J2270; J2405; J3411; J3475; J3480; J7030; J7040; J7050; J7120; Q9967

== ENCOUNTER 2019-03-24 13:04 | Inpatient (IN) ==
[2019-03-24] MEDS ORDERED: MOTRIN PO PRN (14:19)
[2019-03-24] MEDS ORDERED: BENTYL PO PRN (14:19)
[2019-03-24] MEDS ORDERED: MAALOX PLUS LIQUID PO PRN (14:19)
[2019-03-24] MEDS ORDERED: TYLENOL PO PRN (14:19)
[2019-03-24] MEDS ORDERED: TUBERSOL ID ONE (14:19)
[2019-03-24] MEDS ORDERED: SALINE LOCK IV FLUID XX ONE (14:19)
[2019-03-24] MEDS ORDERED: PHENOBARBITAL IV PRN (14:19)
[2019-03-24] MEDS ORDERED: SENOKOT PO PRN (14:19)
[2019-03-24] MEDS ORDERED: DULCOLAX PR PRN (14:19)
[2019-03-24] MEDS ORDERED: D5W 1,000 ML IV PRN (14:19)
[2019-03-24] MEDS ORDERED: IMODIUM PO PRN (14:19)
[2019-03-24] MEDS ORDERED: ZOFRAN ODT PO PRN (14:19)
[2019-03-24] MEDS ORDERED: M.V.I.-12 10 ML, FOLIC ACID 1 MG, MAGNESIUM SULFATE 1 GM, THIAMINE 100 MG in NS 1,000 ML IV ONE (15:00)
[2019-03-24 15:47] LABS: HEMATOCRIT 32.7 % (42.0-52.0); HEMOGLOBIN 11.4 g/dL (14.0-18.0); MCH 33.8 PG (27-31); MCHC 34.9 g/dL (33-37); MPV 13.4 FL (7.4-10.4); RBC 3.37 XMIL (4.7-6.1); RDW 16.1 % (11.5-14.5); WBC 3.64 X1000 (4.8-10.8)
[2019-03-24 15:50] LABS: AMYLASE 93 U/L (20-200); LIPASE 189 U/L (13-60)
[2019-03-24 15:53] LABS: AGAP 18; ALBUMIN 4.1 g/dL (3.5-5.0); ALKALINE PHOSPHATASE 660 U/L (32-122); BUN 8 mg/dL (8-22); CALCIUM 8.8 mg/dL (8.8-10.2); CHLORIDE 95 mmol/L (98-107); COSMO 269; CREATININE 0.5 mg/dL (0.7-1.2); ESTIMATED GFR > 60; GLUCOSE 140 mg/dL (70-104); GOT 211 U/L (10-34); GPT 54 U/L (10-44); POTASSIUM 3.8 mmol/L (3.5-5.1); SODIUM 134 mmol/L (136-145); TCO2 21 mmol/L (25-35); TOTAL PROTEIN 6.8 g/dL (6.3-8.3)
[2019-03-24 16:17] LABS: INR 1.29; PROTIME 16.7 Seconds (11.0-16.0)
[2019-03-24] MEDS: LIBRIUM PO SCH ×2 (17:21→20:09)
[2019-03-24 17:28] LABS: URINE SOURCE VOIDED
[2019-03-24 17:44] LABS: BILIRUBIN URINE 2+ (NEGATIVE); BLOOD URINE 1+ (NEGATIVE); KETONE URINE 2+(Moderate) mg/dL (NEGATIVE); LEUKOCYTES URINE 1+ (NEGATIVE); NITRITE URINE POSITIVE (NEGATIVE); PH URINE 6.5; PROTEIN URINE 1+(30 mg/dL) mg/dL (NEGATIVE); SP GRAVITY URINE 1.015; UROBILINOGEN URINE 4 mg/dL
[2019-03-24 17:45] LABS: CLARITY SL. CLOUDY (CLEAR)
[2019-03-24 17:52] LABS: COLOR ORANGE
[2019-03-24 17:54] LABS: UR AMPHETAMINES QUAL NONE DETECTED (NONE DETECT); UR BARBITUATES QUAL NONE DETECTED (NONE DETECT); UR BENZODIAZEPIN QUAL PRESUMPTIVE POSITIVE (NONE DETECT); UR CANNABINOIDS QUAL PRESUMPTIVE POSITIVE (NONE DETECT); UR COCAINE QUAL NONE DETECTED (NONE DETECT); UR METHADONE QUAL NONE DETECTED (NONE DETECT)
[2019-03-24 17:55] LABS: UR METHAMPHETAMINE QUAL NONE DETECTED (NONE DETECT); UR OPIATES QUAL NONE DETECTED (NONE DETECT); UR OXYCODONE QUAL NONE DETECTED (NONE DETECT); UR PCP QUAL NONE DETECTED (NONE DETECT); UR PROPOXYPHENE QUAL NONE DETECTED (NONE DETECT); UR TCA QUAL NONE DETECTED (NONE DETECT); URINE BACTERIA NEGATIVE /HFP; URINE CAST NONE SEEN /LPF; URINE CRYSTAL NONE SEEN /HPF; URINE EPITHELIAL CELLS <10 /HPF (<10); URINE RBC <10 /HPF (<10); URINE WBC <10 /HPF (<10); URINE YEAST NONE SEEN /HPF
[2019-03-24 17:56] LABS: URINE SMALL ROUND CELLS TRANSITIONAL PRESENT
--- NOTE | 2019-03-24 20:13 | HISTORY AND PHYSICAL ---
CHIEF COMPLAINT: Abdominal pain. HISTORY OF PRESENT ILLNESS: The patient is a 58-year-old male who notes he has been drinking for years. He states he has been told in the past that he had liver problems. He continued to drink. Denies any fevers. States he is having abdominal pain, nausea, frequent vomiting, unable to eat or drink. States he is having tremors and frequent sweating episodes. SOCIAL HISTORY: He is currently . He is on disability. Lives at home in [place]. PAST MEDICAL HISTORY: Significant for HIV, history of hepatitis, alcohol induced. He has been losing weight. Has a history of blackouts that is alcohol related, history of head injury at 5 years old, history of cirrhosis in 2017, recurrent pancreatitis, has chronic anxiety and depression. 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 MEDICATIONS: Atripla for his HIV. ALLERGIES: No known drug allergies. REVIEW OF SYSTEMS: CIWA score is 42, secondary to visible tremors in his hands, face. He has unsteady gait. He is awake, alert. He is able to carry on a conversation. He is very fidgety, nervous, anxious, restless, unable to sit still. He has a history of dry heaves. States that he has frequent auditory and visual hallucinations. Notes that all this worsens the longer that he goes without drinking. SUBSTANCE ABUSE HISTORY: Patient was in treatment in [facility] in 2014, remained sober for 2 years. He was in treatment outpatient in [facility] in 2017, remained sober for approximately 9 months. Notes he started drinking alcohol at 23. He has been drinking heavily for the past year. Currently drinks 4 to 5 eight ounce glasses of whiskey a day. Started smoking at 23, currently smokes a pack every 3 to 4 days. FAMILY HISTORY: Positive for alcoholism. PHYSICAL EXAMINATION: VITAL SIGNS: Reviewed and stable. GENERAL: Patient is awake, alert, oriented. Currently in no respiratory distress. HEENT: Normocephalic. NECK: Supple. CARDIOVASCULAR: Regular rate. CHEST: Clear. ABDOMEN: Soft. EXTREMITIES: Moves all extremities. ASSESSMENT: 1. Nausea and vomiting with abdominal pain. 2. Myalgias. 3. Paresthesias. 4. Paroxysmal sweating. 5. Chronic alcohol abuse withdrawal and stabilization. 6. Cirrhosis. 7. Elevated bilirubin. 8. Human immunodeficiency virus. PLAN: The patient is a chronically ill-appearing individual. We are going to admit him to the hospital, place him on Librium. We will continue to follow. Librium plus Atripla could increase sedation. We will try to monitor this closely. Hopefully, his liver function will continue to improve slightly. If so, we will place him on Naloxone on discharge. We will continue counseling. Further orders as needed. cc: oYung Stephens MD
[2019-03-24] MEDS: SEROQUEL PO PRN (22:28)
[2019-03-24] MEDS: DESYREL PO PRN (23:25)
[2019-03-25] MEDS: LIBRIUM PO SCH ×4 (02:42→20:46)
[2019-03-25] MEDS: NICODERM PATCH TD PRN ×2 (05:24→13:00)
[2019-03-25] MEDS: PROTONIX PO SCH (06:02)
[2019-03-25 06:25] LABS: HEMOGLOBIN 10.4 g/dL (14.0-18.0); MCH 33.9 PG (27-31); MCHC 34.7 g/dL (33-37); MCV 97.7 FL (81-99); RBC 3.07 XMIL (4.7-6.1); WBC 2.86 X1000 (4.8-10.8)
[2019-03-25 06:26] LABS: PLT 26 X1000 (130-400)
[2019-03-25 06:49] LABS: AGAP 15; ALBUMIN 3.8 g/dL (3.5-5.0); ALKALINE PHOSPHATASE 584 U/L (32-122); BUN 8 mg/dL (8-22); CALCIUM 8.8 mg/dL (8.8-10.2); CHLORIDE 96 mmol/L (98-107); COSMO 272; CREATININE 0.4 mg/dL (0.7-1.2); ESTIMATED GFR > 60; GLUCOSE 192 mg/dL (70-104); GOT 172 U/L (10-34); GPT 50 U/L (10-44); MAGNESIUM 1.7 mg/dL (1.5-2.7); POTASSIUM 3.2 mmol/L (3.5-5.1); SODIUM 134 mmol/L (136-145); TCO2 23 mmol/L (25-35); TOTAL PROTEIN 6.7 g/dL (6.3-8.3)
[2019-03-25] MEDS: ATARAX PO PRN ×2 (09:02→18:14)
[2019-03-25] MEDS: FOLIC ACID PO SCH (09:02)
[2019-03-25] MEDS: VITAMIN B-1 PO SCH (09:02)
[2019-03-25] MEDS: THERA M PLUS PO SCH (09:02)
--- NOTE | 2019-03-25 09:59 | Diag Imaging Result Doc PS360 ---
EXAM: CT HEAD W/O CONTRAST - 03/25/2019 HISTORY: unwitnessed fall TECHNIQUE: CT head without contrast COMPARISON: None. FINDINGS: There are generalized mild atrophic changes. There is no evidence of intracranial hemorrhage, mass effect, midline shift, or hydrocephalus. 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 There is no evidence of infarct, although acute infarcts may not be immediately visible. There is no evidence of skull fracture. There is a possible small round lucent lesion or erosion at the external table of the superiormost parietal skull just the left of midline. IMPRESSION: No evidence of intracranial injury. No intracranial hemorrhage or mass effect. Possible small round lucent lesion or erosion at the external table of the superiormost parietal skull just left of midline. This exam was performed using automated exposure control, adjustment of mA or kV according to patient size, and/or use of iterative reconstruction technique. Electronically signed by Austin Hayes 03/25/2019 9:57 AM
--- NOTE | 2019-03-25 10:18 | Diag Imaging Result Doc PS360 ---
EXAM: US ABDOMEN-COMPLETE - 03/25/2019 HISTORY: lft's TECHNIQUE: Ultrasound abdomen COMPARISON: 02/20/2019 FINDINGS: The liver appears diffusely echodense suggesting fatty infiltration. There is no focal liver lesion identified. Doppler image shows hepatopedal flow in the portal vein. The spleen is mildly prominent in size, measuring 14.5 cm in length by 4.5 cm in diameter. The spleen demonstrates homogeneous echotexture. There is no ascites seen. The gallbladder is contracted, which limits evaluation. There is a possible small gallbladder polyp. There are no discrete shadowing gallstones identified. There is possibly some thickening of the gallbladder rose, but this may be exaggerated by the contracted state. The technologist reports negative sonographic Vaughan's sign. The common bile duct is normal caliber at 3 mm. The pancreas is partially obscured by bowel gas artifacts, but visualized portions of the pancreas are grossly unremarkable. There are no abnormalities of the bilateral kidneys identified. Visualized portions of abdominal aorta and IVC appear normal caliber the distal aorta is obscured by bowel gas artifacts. IMPRESSION: Apparent fatty infiltration of liver. No evidence of focal liver lesion. Mildly prominent spleen. Contracted gallbladder, which limits evaluation. Possible small gallbladder polyp. No discrete gallstones. Questionable thickening of gallbladder rose versus exaggeration by the contracted state. Normal caliber common bile duct at 3 mm. Electronically signed by Austin Hayes 03/25/2019 10:16 AM
[2019-03-25] MEDS ORDERED: LIBRIUM PO ONE (14:02)
[2019-03-25] MEDS: ATIVAN IV PRN ×2 (20:46→22:47)
[2019-03-25] MEDS: SEROQUEL PO PRN (21:10)
[2019-03-25] MEDS: DESYREL PO PRN ×2 (21:39→22:47)
[2019-03-26] MEDS: ATIVAN IV PRN ×4 (00:37→20:28)
[2019-03-26] MEDS: LIBRIUM PO SCH ×4 (02:28→20:28)
[2019-03-26] MEDS: PROTONIX PO SCH (06:27)
[2019-03-26 06:33] LABS: HEMATOCRIT 30.6 % (42.0-52.0); HEMOGLOBIN 10.6 g/dL (14.0-18.0); MCH 33.3 PG (27-31); MCHC 34.6 g/dL (33-37); MCV 96.2 FL (81-99); RBC 3.18 XMIL (4.7-6.1); RDW 15.6 % (11.5-14.5); WBC 3.29 X1000 (4.8-10.8)
[2019-03-26 06:35] LABS: PLT 17 X1000 (130-400)
[2019-03-26 06:59] LABS: AGAP 13; ALBUMIN 3.3 g/dL (3.5-5.0); ALKALINE PHOSPHATASE 492 U/L (32-122); BUN 5 mg/dL (8-22); CALCIUM 8.3 mg/dL (8.8-10.2); CHLORIDE 99 mmol/L (98-107); COSMO 271; CREATININE 0.3 mg/dL (0.7-1.2); ESTIMATED GFR > 60; GLUCOSE 197 mg/dL (70-104); GOT 145 U/L (10-34); GPT 44 U/L (10-44); MAGNESIUM 1.7 mg/dL (1.5-2.7); SODIUM 134 mmol/L (136-145); TCO2 22 mmol/L (25-35)
[2019-03-26] MEDS: ZOSYN 3.375 GM in NS 50 ML IV SCH ×3 (09:56→21:44)
[2019-03-26] MEDS: FOLIC ACID PO SCH (10:13)
[2019-03-26] MEDS: THERA M PLUS PO SCH (10:13)
[2019-03-26] MEDS: VITAMIN B-1 PO SCH (10:13)
[2019-03-26] MEDS: PATIENT'S OWN MED PO SCH (13:46)
[2019-03-26 14:57] LABS: BILIRUBIN URINE 2+ (NEGATIVE); BLOOD URINE TRACE (NEGATIVE); CLARITY CLEAR (CLEAR); COLOR AMBER; KETONE URINE 1+(Small) mg/dL (NEGATIVE); LEUKOCYTES URINE TRACE (NEGATIVE); NITRITE URINE NEGATIVE (NEGATIVE); PH URINE 6.5; PROTEIN URINE TRACE mg/dL (NEGATIVE); UROBILINOGEN URINE 8 mg/dL
[2019-03-26] MEDS: M.V.I.-12 10 ML, FOLIC ACID 1 MG, MAGNESIUM SULFATE 1 GM, THIAMINE 100 MG in NS 1,000 ML IV SCH (15:00)
[2019-03-26 15:02] LABS: URINE EPITHELIAL CELLS <10 /HPF (<10); URINE RBC <10 /HPF (<10); URINE SOURCE CATH; URINE WBC <10 /HPF (<10)
--- NOTE | 2019-03-26 15:43 | PROGRESS NOTE ---
DATE: 03/25/2019 The patient is seen and examined by myself on the . Full note redictated. SUBJECTIVE: The patient states that he does not feel well. He is having episodes of confusion and disorientation per the staff. Notes that he still is shaking, still having chills. Notes he is not able to eat or drink as well as he normally is. PHYSICAL EXAMINATION: Vital signs: Reviewed. General: He is awake, alert, and oriented. HEENT: Normocephalic. Neck: Supple. Cardiovascular: Regular rate. No murmurs. Chest: Clear and unlabored. Abdomen: Soft, obese, nondistended. No fluid wave. Positive bowel sounds. Extremities: Moves all extremities. No edema. ASSESSMENT: 1. Nausea and vomiting. 2. Abdominal pain. 3. Tremors. 4. Paresthesias. 5. Acute metabolic encephalopathy secondary to alcohol withdrawal. 6. Alcohol withdrawal. 7. Alcoholic hallucinosis. 8. Human immunodeficiency virus. PLAN: We will continue patient in the hospital, although, we will transfer him to the ICU. He does appear to be in DTs with his confusion and occasional disorientation. We will continue to follow. Will continue Librium. Further orders as needed. cc: Young Stephens MD
--- NOTE | 2019-03-26 19:34 | PROGRESS NOTE ---
DATE: 03/26/2019 SUBJECTIVE: Patient is confused, disoriented. OBJECTIVE: Vital Signs: Reviewed. Blood pressures are stable currently, but have been low in the upper 80s to low 90s systolic. Respiratory 22. He is afebrile. General: Patient is an ill- appearing, male, who currently is confused, disoriented. He is currently in the ICU. HEENT: Normocephalic, atraumatic. PERRL. Neck: Supple. No JVD. Cardiovascular: Regular rate. No murmurs. Chest: Clear, nonlabored. Abdomen: Soft, nondistended. Extremities: No edema. Neurologic: No focal changes. ASSESSMENT: 1. Alcoholic hallucinosis. 2. Delirium tremens. 3. Nausea and vomiting. 4. Abdominal pain. 5. Myalgias. 6. Paresthesias. 7. Paroxysmal sweating. 8. Alcohol abuse withdrawal and stabilization. 9. Fatty liver with elevated liver function tests. 10. Hyperbilirubinemia secondary to his fatty liver. 11. Human immunodeficiency virus. PLAN: We will continue patient in the hospital, continue to follow, keep him in the ICU. We will restart a banana bag today. TIME: Greater than 38 minutes was spent in total care today. cc: Young Stephens MD MTDD
[2019-03-26] MEDS: NS 1,000 ML IV SCH (20:29)
[2019-03-26] MEDS: ROBAXIN PO PRN (21:50)
[2019-03-26] MEDS: ZOFRAN IV PRN (21:50)
[2019-03-27] MEDS: NS 1,000 ML IV SCH ×2 (02:19→17:09)
[2019-03-27] MEDS: ATIVAN IV PRN ×6 (02:19→21:53)
[2019-03-27] MEDS: LIBRIUM PO SCH ×2 (02:20→08:18)
[2019-03-27] MEDS: ZOSYN 3.375 GM in NS 50 ML IV SCH ×4 (04:13→20:44)
[2019-03-27] MEDS: PROTONIX PO SCH (06:50)
[2019-03-27 07:24] LABS: AGAP 9; ALBUMIN 2.7 g/dL (3.5-5.0); ALKALINE PHOSPHATASE 375 U/L (32-122); BUN 5 mg/dL (8-22); CALCIUM 7.3 mg/dL (8.8-10.2); CHLORIDE 107 mmol/L (98-107); COSMO 275; CREATININE 0.2 mg/dL (0.7-1.2); ESTIMATED GFR > 60; GLUCOSE 128 mg/dL (70-104); GOT 145 U/L (10-34); GPT 40 U/L (10-44); MAGNESIUM 1.8 mg/dL (1.5-2.7); POTASSIUM 3.1 mmol/L (3.5-5.1); SODIUM 138 mmol/L (136-145); TCO2 22 mmol/L (25-35); TOTAL PROTEIN 5.2 g/dL (6.3-8.3)
[2019-03-27 07:36] LABS: HEMATOCRIT 29.4 % (42.0-52.0); HEMOGLOBIN 10.1 g/dL (14.0-18.0); MCH 32.9 PG (27-31); MCHC 34.4 g/dL (33-37); MCV 95.8 FL (81-99); MPV 11.1 FL (7.4-10.4); RBC 3.07 XMIL (4.7-6.1); RDW 15.7 % (11.5-14.5); WBC 2.45 X1000 (4.8-10.8)
[2019-03-27] MEDS: FOLIC ACID PO SCH (08:18)
[2019-03-27] MEDS: THERA M PLUS PO SCH (08:18)
[2019-03-27] MEDS: VITAMIN B-1 PO SCH (08:18)
[2019-03-27] MEDS: M.V.I.-12 10 ML, FOLIC ACID 1 MG, MAGNESIUM SULFATE 1 GM, THIAMINE 100 MG in NS 1,000 ML IV SCH (09:16)
[2019-03-27] MEDS ORDERED: KLOR-CON PO ONE (09:49)
[2019-03-27] MEDS: NICODERM PATCH TD PRN (10:23)
[2019-03-27] MEDS: DUONEB (A & A) INH PRN ×2 (10:30→16:43)
[2019-03-27] MEDS: PATIENT'S OWN MED PO SCH (10:39)
[2019-03-27] MEDS: DOXYCYCLINE 100 MG in NS 250 ML IV SCH ×2 (11:12→21:17)
--- NOTE | 2019-03-27 13:09 | PROGRESS NOTE ---
DATE: 03/27/2019 SUBJECTIVE: The patient had an eventful night with anxiety and agitation requiring Ativan. Currently is still somnolent from the Ativan, although, the staff did note prior to having giving that he was a little more oriented than he had been previously. PHYSICAL EXAMINATION: Vital signs: Reviewed. He is afebrile. Blood pressures are improved at 100 systolic, pulse in the 80s, saturation in the upper 90s on 2 L. General: The patient is somnolent from Ativan but he is arousable, although does not stay awake without constant stimulation. HEENT: Normocephalic. Neck: Supple. CV: Regular rate, no murmurs. Chest: Decreased breath sounds but equal bilaterally. Faint occasional wheezing. Abdomen: Soft, nondistended, nontender. Extremities: Moves all extremities. Neurologic: Unchanged. ASSESSMENT: 1. Acute alcohol withdrawal with delirium tremens. 2. Alcoholic hallucinosis. 3. Tremors, resolved. 4. Myalgias. 5. Agitation due to withdrawal. 6. Hypotension, improved. PLAN: Will continue the patient in the ICU, continue supportive care, IV fluids. Will add doxycycline as it is highly likely that he has aspirated. We will continue breathing treatments, check a chest x-ray, recheck his labs, and will follow. Thirty-eight minutes was spent in total care. cc: Young Stephens MD
--- NOTE | 2019-03-27 15:30 | Diag Imaging Result Doc PS360 ---
CHEST-PORTABLE - 03/27/2019 INDICATION: dyspnea COMPARISON: 03/23/2019 FINDINGS: Lung volumes are severely low. No infiltrates or edema. Heart size is normal. IMPRESSION: Severely low lung volumes. Electronically signed by Peng Mg 03/27/2019 3:28 PM
[2019-03-27] MEDS: ZOFRAN IV PRN (19:38)
[2019-03-27] MEDS: ROBAXIN PO PRN (19:38)
[2019-03-27] MEDS: SEROQUEL PO PRN (20:46)
[2019-03-27] MEDS ORDERED: LIBRIUM PO SCH (21:00)
[2019-03-27] MEDS: DESYREL PO PRN (22:50)
[2019-03-28] MEDS: ATIVAN IV PRN ×3 (00:25→17:14)
[2019-03-28] MEDS: NS 1,000 ML IV SCH ×2 (02:14→20:34)
[2019-03-28] MEDS: ZOSYN 3.375 GM in NS 50 ML IV SCH ×4 (02:15→20:30)
[2019-03-28] MEDS: PROTONIX PO SCH (06:35)
[2019-03-28 07:24] LABS: AGAP 9; ALBUMIN 2.7 g/dL (3.5-5.0); ALKALINE PHOSPHATASE 312 U/L (32-122); BUN 5 mg/dL (8-22); CALCIUM 7.4 mg/dL (8.8-10.2); CHLORIDE 110 mmol/L (98-107); COSMO 279; CREATININE 0.3 mg/dL (0.7-1.2); ESTIMATED GFR > 60; GLUCOSE 136 mg/dL (70-104); GOT 129 U/L (10-34); GPT 43 U/L (10-44); MAGNESIUM 1.8 mg/dL (1.5-2.7); POTASSIUM 3.3 mmol/L (3.5-5.1); SODIUM 140 mmol/L (136-145); TCO2 21 mmol/L (25-35)
[2019-03-28 07:29] LABS: HEMATOCRIT 30.4 % (42.0-52.0); HEMOGLOBIN 10.5 g/dL (14.0-18.0); MCH 33.4 PG (27-31); MCHC 34.5 g/dL (33-37); MCV 96.8 FL (81-99); MPV 11.9 FL (7.4-10.4); RBC 3.14 XMIL (4.7-6.1); RDW 16.4 % (11.5-14.5); WBC 1.96 X1000 (4.8-10.8)
[2019-03-28] MEDS: NICODERM PATCH TD PRN (10:07)
[2019-03-28] MEDS: DOXYCYCLINE 100 MG in NS 250 ML IV SCH ×2 (11:40→22:17)
[2019-03-28] MEDS: FOLIC ACID PO SCH (11:58)
[2019-03-28] MEDS: PATIENT'S OWN MED PO SCH (11:59)
[2019-03-28] MEDS: THERA M PLUS PO SCH (11:59)
[2019-03-28] MEDS: VITAMIN B-1 PO SCH (11:59)
[2019-03-28] MEDS: LASIX IV SCH ×2 (12:05→22:17)
[2019-03-28] MEDS: CLINIMIX E 4.25%-5% SOLUTION 1,000 ML IV SCH ×2 (12:07→22:18)
--- NOTE | 2019-03-28 15:14 | PROGRESS NOTE ---
DATE: 03/28/2019 SUBJECTIVE: Patient has episodes where he is a little more awake, but typically stays confused and agitated. PHYSICAL EXAMINATION: Vital Signs: Reviewed. He is afebrile, blood pressure is stable, heart rate 80s, respiratory 20. General: Patient is currently sedated, although he has not received any medications recently. He does not answer questions nor follow commands. He is an ill-appearing individual. HEENT: Normocephalic. Neck: Supple. Cardiovascular: Regular rate. No murmurs. Chest: Clear, nonlabored. Positive rhonchi. No crackles. No wheezing. Abdomen: Soft, nondistended. Extremities: Moves all extremities. ASSESSMENT: 1. Leukopenia. White count is 1. Patient does have known HIV. Differential is pending. 2. Human immunodeficiency virus (HIV). 3. Alcohol withdrawal. 4. Acute metabolic encephalopathy secondary to alcohol withdrawal. PLAN: We will continue patient in the hospital. Continue treatment. Check a differential. Continue antibiotics and will follow. If his differential continues to decrease, we will have to transfer him to [facility] for Infectious Disease to assist in his care. Currently, he is in no respiratory distress. cc: Young Stephens MD [facility]
--- NOTE | 2019-03-28 15:39 | Diag Imaging Result Doc PS360 ---
US RENAL 2 (RETROPER) COMPLETE - 03/28/2019 INDICATION: hematuria TECHNIQUE: COMPARISON: 03/25/2019 FINDINGS: The kidneys and urinary bladder are normal. There is a small amount of ascites. There is a Roche catheter in the urinary bladder. IMPRESSION: Small amount of ascites. Normal exam of the urinary tract. Electronically signed by Peng Mg 03/28/2019 3:37 PM
[2019-03-28] MEDS: BENADRYL IV PRN (20:32)
[2019-03-28] MEDS: ZOFRAN IV PRN (20:32)
[2019-03-28] MEDS: ROBAXIN PO PRN (20:33)
[2019-03-28] MEDS: ATARAX PO PRN (20:33)
[2019-03-29] MEDS: ZOSYN 3.375 GM in NS 50 ML IV SCH ×4 (02:23→21:54)
[2019-03-29] MEDS: BENADRYL IV PRN (02:26)
[2019-03-29] MEDS: PROTONIX PO SCH (06:31)
[2019-03-29 07:02] LABS: BASO# 0.01 X1000 (0.0-0.2); BASO% 0.4 % (0.0-0.8); EOS# 0.03 X1000 (0.0-0.7); EOS% 1.3 % (0.0-10.0); HEMATOCRIT 31.7 % (42.0-52.0); HEMOGLOBIN 11.1 g/dL (14.0-18.0); IMM GRAN# 0.01 X1000 (0.0-0.04); IMM GRAN% 0.4 % (0.0-0.5); LYMPH# 0.48 X1000 (1.2-3.4); LYMPH% 20.5 % (20.5-51.1); MCH 33.8 PG (27-31); MCV 96.6 FL (81-99); MONO# 0.56 X1000 (0.11-0.59); MONO% 23.9 % (1.7-9.3); MPV 11.1 FL (7.4-10.4); NEUT# 1.25 X1000 (1.4-6.5); NEUT% 53.5 % (42.2-75.2); RBC 3.28 XMIL (4.7-6.1); RDW 16.6 % (11.5-14.5); WBC 2.34 X1000 (4.8-10.8)
[2019-03-29 07:26] LABS: AGAP 11; ALBUMIN 2.6 g/dL (3.5-5.0); ALKALINE PHOSPHATASE 289 U/L (32-122); BUN 7 mg/dL (8-22); CALCIUM 7.6 mg/dL (8.8-10.2); CHLORIDE 105 mmol/L (98-107); COSMO 281; CREATININE 0.2 mg/dL (0.7-1.2); ESTIMATED GFR > 60; GLUCOSE 155 mg/dL (70-104); GOT 116 U/L (10-34); GPT 43 U/L (10-44); MAGNESIUM 1.6 mg/dL (1.5-2.7); POTASSIUM 3.2 mmol/L (3.5-5.1); SODIUM 140 mmol/L (136-145); TCO2 24 mmol/L (25-35); TOTAL PROTEIN 5.2 g/dL (6.3-8.3)
[2019-03-29 07:36] LABS: LYMPHS 20 % (21-51); SEGS 55 % (42-75)
[2019-03-29 07:37] LABS: EOS 1 % (1-10); MONO 24 % (1-9); PLT 27 X1000 (130-400)
[2019-03-29] MEDS: CLINIMIX E 4.25%-5% SOLUTION 1,000 ML IV SCH (10:10)
[2019-03-29] MEDS: DOXYCYCLINE 100 MG in NS 250 ML IV SCH (10:11)
[2019-03-29] MEDS: FOLIC ACID PO SCH (10:30)
[2019-03-29] MEDS: PATIENT'S OWN MED PO SCH (10:30)
[2019-03-29] MEDS: THERA M PLUS PO SCH (10:30)
[2019-03-29] MEDS: VITAMIN B-1 PO SCH (10:31)
[2019-03-29] MEDS: DUONEB (A & A) INH PRN (11:47)
[2019-03-29] MEDS: LASIX IV SCH (11:54)
[2019-03-29] MEDS: NS 1,000 ML IV SCH (11:57)
[2019-03-29] MEDS ORDERED: ZOFRAN IV PRN (16:09)
[2019-03-29] MEDS: NICODERM PATCH TD SCH (16:21)
[2019-03-29] MEDS: FOLIC ACID 1 MG in NS 50 ML IV SCH (17:06)
[2019-03-29] MEDS: THIAMINE 500 MG in NS 50 ML IV SCH (17:06)
[2019-03-29] MEDS: LACTULOSE NG SCH ×2 (18:21→21:54)
[2019-03-29] MEDS: POTASSIUM CHLORIDE 20% LIQUID NG SCH ×2 (18:22→21:54)
[2019-03-29] MEDS: LIBRIUM NG SCH (18:22)
--- NOTE | 2019-03-29 18:35 | PROGRESS NOTE ---
DATE: 03/29/2019 INTERVAL HISTORY: Mr. Chauhan was transferred from [facility] ICU to [facility] ICU for persistent encephalopathy and possible need for Infectious Disease consult for his history of HIV and pancytopenia. SUBJECTIVE: The patient is currently very confused and does not participate in clinical encounter meaningful. Most of the history was obtained from previous chart. CURRENTLY VITALS: Temperature 97.6, pulse 84, respiratory rate 21, blood pressure 104/64. He is saturating 100% on 2L nasal cannula. PHYSICAL EXAMINATION: General: He appears cachectic, not in any acute distress. HEENT: Oral cavity is dry. He has scleral icterus. Poor oral hygiene. Lungs: Air entry bilaterally equal. No wheeze, rhonchi, crackles. Cardiovascular: S1, S2 normal. No murmur or gallop. Abdomen: Soft. Tympanic to percussion. Nontender. No hepatosplenomegaly. No dullness to percussion or ascites I could appreciate. Extremities: No lower extremity edema. Genital: He has a urine catheter. Neurologic: He is drowsy. He is wincing to painful stimuli, all extremities. He wakes up to repeatedly strong verbally stimuli but then lapses back into sleep again. He occasionally mumbles. Input and output suggests he had a bowel movement on 03/29/2019, soft and brown. Positive 6 liters since admission. LABS: Suggestive of pancytopenia with marked thrombocytopenia. Hypokalemia. Normal kidney function. Transaminitis, which is improving. MICROBIOLOGY: No positive data. Blood cultures have not been collected. IMAGING: So far, abdominal ultrasound had fatty liver. Head CT was unremarkable. Chest x-ray was unremarkable. Renal ultrasound had a small amount of ascites. Normal exam of urinary tract. ASSESSMENT: 1. Delirium tremens due to alcohol withdrawal. 2. Alcoholic fatty liver with ongoing alcohol abuse with MELD (Model for end- stage liver disease) score of 13 without decompensated cirrhosis. 3. Nausea, vomiting, and abdominal pain on presentation likely because of alcoholic gastritis and alcohol use disorder. 4. History of polysubstance abuse. 5. History of human immunodeficiency virus/ acquired immune deficiency syndrome. PLAN: 1. I will insert nasogastric tube and start patient on tube feeds. I will keep him on chlordiazepoxide and intravenous lorazepam as needed. I will also keep him in nicotine patch. 2. I will give him high dose of thiamine, intravenous folic acid, and as needed Zofran. 3. Previously, on last admission, workup for pancytopenia, including TSH, T4, serum protein electrophoresis have been unremarkable. His alcoholic fatty liver could be contributing to his thrombocytopenia. His comliance with HIV medication is questionable. I will keep him on intravenous Zosyn that he was started on and will follow up with the culture. He was transferred for Infectious Disease consultation, so I will request Infectious Disease team for further recommendation. DISPOSITION: The patient remains in ICU. More than 30 minutes of critical care time was spent in regard to this patient. I called the patient's sister and informed her about the patient's clinical condition and answered all of her questions. cc: MD Young Ham MD MTDD
--- NOTE | 2019-03-29 19:02 | Diag Imaging Result Doc PS360 ---
EXAM: CHEST-PORTABLE INDICATION: NG placement TECHNIQUE: One view COMPARISON: 03/27/2019 FINDINGS: There is a newly placed NG tube. The tip projects well below the diaphragm and is assumed to be in the lumen of the stomach in expected position. The lungs are overexposed due to focus on the NG tube. They appear to be grossly stable, however. IMPRESSION: Newly placed NG tube identified in the expected position. Electronically signed by Saul Flores 03/29/2019 7:00 PM
[2019-03-29] MEDS: ATIVAN IV PRN (19:25)
--- NOTE | 2019-03-29 19:32 | PROGRESS NOTE ---
DATE: 03/29/2019 SUBJECTIVE: Patient this morning is still sedated despite not receiving any Librium past yesterday morning. PHYSICAL EXAMINATION: Vital Signs: Reviewed. Blood pressure 100 systolic, he is currently on oxygen, he is afebrile, respiratory 24-30. General: Patient is calm. He does arouse to stimuli. HEENT: Normocephalic. Neck: Supple. Cardiovascular: Regular rate. Chest: Positive rhonchi. No wheezing, no crackles. Poor but equal air movement bilaterally. Abdomen: Soft. Appears nontender, nondistended. Extremities: He has no edema. He is noted to move all extremities. Neurologic: Unable to assess. ASSESSMENT: 1. Leukopenia. White count has actually improved slightly today at 2.2 without neutropenia. 2. Thrombocytopenia. Platelets have again decreased back to 27. 3. Alcohol withdrawal. He appears stabilized from an alcohol withdrawal standpoint. He does not appear to be any current withdrawal. We therefore have stopped his Librium. He was in fairly significant withdrawal and in fact likely in early DTs upon admission. He had significant tremors, myalgias, paresthesias, nausea, and vomiting. That part has resolved. His hallucinations have resolved as well prior to him becoming more confused. I expect his metabolic encephalopathy is secondary to his chronic alcoholism and not due to alcohol acute withdrawal. I do expect that the metabolic encephalopathy will resolve over time. PLAN: We will transfer him to [facility] ICU for Infectious Disease assistance with his white count I expect he may need Neupogen shots to help with his white cells. He has had low platelets. He received a transfusion and likely will require future transfusions of platelets. He has had some tachypnea, but so far his chest x-ray and lung exams have been clear. COMPLEXITY: 36 minutes were spent in total care. cc: Young Stephens MD [facility]
[2019-03-29] MEDS ORDERED: PHENOBARBITAL IV ONE (21:41)
[2019-03-29] MEDS: PHENOBARBITAL IV PRN (23:59)
[2019-03-30] MEDS: THIAMINE 500 MG in NS 50 ML IV SCH ×3 (01:10→15:31)
[2019-03-30] MEDS: PHENOBARBITAL IV PRN ×2 (01:29→03:23)
[2019-03-30] MEDS: LIBRIUM NG SCH ×3 (01:41→12:31)
[2019-03-30] MEDS: ZOSYN 3.375 GM in NS 50 ML IV SCH (03:19)
[2019-03-30 06:24] LABS: HEMATOCRIT 31.1 % (42.0-52.0); MCH 33.7 PG (27-31); MCHC 35.4 g/dL (33-37); MCV 95.4 FL (81-99); PLT 32 X1000 (130-400); RBC 3.26 XMIL (4.7-6.1); RDW 16.5 % (11.5-14.5); WBC 2.21 X1000 (4.8-10.8)
[2019-03-30 06:25] LABS: BASO# 0.01 X1000 (0.0-0.2); BASO% 0.5 % (0.0-0.8); EOS# 0.03 X1000 (0.0-0.7); EOS% 1.4 % (0.0-10.0); LYMPH# 0.51 X1000 (1.2-3.4); LYMPH% 23.1 % (20.5-51.1); MONO# 0.53 X1000 (0.11-0.59); NEUT# 1.13 X1000 (1.4-6.5)
[2019-03-30] MEDS: PROTONIX PO SCH (06:28)
[2019-03-30 06:40] LABS: AGAP 10; BUN 13 mg/dL (8-22); CHLORIDE 104 mmol/L (98-107); COSMO 282; CREATININE 0.4 mg/dL (0.7-1.2); GLUCOSE 101 mg/dL (70-104); POTASSIUM 3.4 mmol/L (3.5-5.1); SODIUM 141 mmol/L (136-145); TCO2 27 mmol/L (25-35)
[2019-03-30 06:41] LABS: ALBUMIN 2.5 g/dL (3.5-5.0); ALKALINE PHOSPHATASE 299 U/L (32-122); CALCIUM 7.6 mg/dL (8.8-10.2); ESTIMATED GFR > 60; GOT 113 U/L (10-34); GPT 42 U/L (10-44); TOTAL BILIRUBIN 3.56 mg/dL (0.20-1.00); TOTAL PROTEIN 4.9 g/dL (6.3-8.3)
[2019-03-30 06:54] LABS: BANDS 18 % (0-1); LYMPHS 18 % (21-51); MONO 18 % (1-9); SEGS 46 % (42-75)
--- NOTE | 2019-03-30 07:22 | Diag Imaging Result Doc PS360 ---
EXAM: CHEST/ABD TUBE PLACEMENT 03/30/2019 HISTORY: NG tube re-placement TECHNIQUE: AP portable at 1238 COMMENT: There is an NG tube with its tip in the fundus of the stomach. IMPRESSION: NG tube in the stomach. Electronically signed by Ramesh Christine 03/30/2019 7:20 AM
--- NOTE | 2019-03-30 07:35 | Diag Imaging Result Doc PS360 ---
EXAM: CHEST-PORTABLE INDICATION: dyspnea TECHNIQUE: One view COMPARISON: 03/30/2019 FINDINGS: The NG tube is in stable position. Inspiration is somewhat suboptimal. There is suggestion of mild subsegmental atelectasis at the lung bases. The lungs are grossly clear, otherwise. Cardiac silhouette is stable. IMPRESSION: Low lung volumes and suggestion of mild atelectasis at the bases. No definite airspace consolidation appreciated by plain radiograph. Electronically signed by Saul Flores 03/30/2019 7:33 AM
[2019-03-30] MEDS: THERA M PLUS PO SCH (08:06)
[2019-03-30] MEDS: LACTULOSE NG SCH ×2 (08:06→21:14)
[2019-03-30] MEDS: NICODERM PATCH TD SCH (08:06)
[2019-03-30 08:51] LABS: MAGNESIUM 1.6 mg/dL (1.5-2.7); PREALBUMIN 4.9 mg/dL (20-40)
--- NOTE | 2019-03-30 11:14 | INFECTIOUS DISEASE CONSULT REP ---
DATE: 03/30/2019 CONCLUSION: The patient has an HIV infection. The patient also has pancytopenia. This could be due to a combination of alcoholism and having an HIV infection. The patient has oral candidiasis. RECOMMENDATIONS: I have ordered to restart the patient's anti-retroviral therapy which is Atripla to be given 1 tablet at night. It will probably will have to be given through the nasogastric tube. As regarding the patient's pancytopenia, I do not think that the patient needs to be on a broad-spectrum antibiotics such as Zosyn unless there is some actual infection. At this time, I do not find any definite infection other than the patient's HIV infection and oral candidiasis. Nystatin solution has been ordered for the candidiasis. DISCUSSION: The patient is unable provide a history. No family members present. The information I did get from him is from the computer. The patient is an alcoholic and he was admitted to the hospital with abdominal pain. He also had nausea, vomiting, and unable to eat. He is having frequent tremors and frequent sweating episodes. His CBC shows a white count of 2210, hemoglobin 11 and platelet count 32,000. Creatinine is 0.4. GFR is greater than 60. Bilirubin is 3.56, alkaline phosphatase is 299. Blood cultures have been drawn and the results are pending. Chest x- ray shows low lung volumes and no infiltrate. Renal ultrasound shows ascites. PAST MEDICAL HISTORY/REVIEW OF SYSTEMS: Unable to be obtained. Patient is an alcoholic. PREVIOUS HOSPITALIZATIONS AND OPERATIONS: I do not see any hospitalizations mentioned. MEDICAL DISEASES: Positive for hepatitis, alcoholism, cirrhosis of the liver, recurrent pancreatitis, chronic anxiety, depression. INFECTIOUS DISEASE HISTORY: Positive for HIV infection. 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 HOME MEDICATIONS: Include: 1. Atripla. 2. Hydrocodone. SOCIAL HISTORY: The patient is on hydrocodone and Atripla. He is an alcoholic and he also smokes cigarettes. There is no mention that he abuses drugs. FAMILY HISTORY: Positive for alcoholism. PHYSICAL EXAMINATION: Vital Signs: Temperature is 98 degrees, pulse 75, respirations 28, blood pressure 114/83. General: The patient is 6 feet tall, weighs 149 pounds. General: This is an ill-appearing middle-aged male. He is obtunded. Head/eyes/ears/nose/throat: No drainage is noted from the nose or ears. His tongue is white. Neck: No meningismus. Lungs: Clear to auscultation. Cardiovascular: Heart rate is regular. Abdomen: Soft. It was not tender. Neurologic: As mentioned above, the patient is obtunded. He did respond to verbal stimuli. He did not have a tremor. Integument: No rash noted. Thank you for the consult. cc: MD Young Martinez MD [facility]
[2019-03-30] MEDS: DIFLUCAN 400 MG/NS 400 MG/200 ML IVPB IV SCH (11:59)
[2019-03-30] MEDS: MYCOSTATIN SUSP PO SCH ×3 (12:31→21:14)
--- NOTE | 2019-03-30 13:14 | PROGRESS NOTE ---
DATE: 03/30/2019 SUBJECTIVE: He is still pretty much sedated, but he is on Librium. He has liver dysfunction. OBJECTIVE: Blood pressure 92/64, heart rate 76, respiratory rate 25, temperature was 95 degrees. This morning it was apparently 93. Cardiovascular regular rate and rhythm. Pulmonary with bilateral breath sounds with rhonchi. Some of that I think is upper airway noise. GI was soft, nontender and scaphoid. LABORATORY DATA: White count 2.2, hemoglobin and hematocrit 11 and 31, platelets of 32,000 which is up a little bit from yesterday. Potassium of 3.4. T bilirubin is up at 3.56 with an AST of 113, alkaline phosphatase of 299, and pre-albumin 4.9. PROBLEM LIST: 1. Alcohol withdrawal syndrome. He is on a Librium taper. Going to kind of continue to monitor that. I am not sure how much all of this is related to withdrawal. He is kind of a complicated patient to have to go through this process. 2. HIV with AIDS status. His last CD4 count if I am interpreting it was low, and I am not quite sure how compliant he is. It has been kind of altered this whole time. Dr. Milton is following, and I appreciate his input. His absolute CD4 count was 69, which again is consistent with AIDS. We will continue to follow. We are not treating any active infection at this point, but obviously, he is at risk for it, and he is getting triple therapy heart therapy per NG tube. 3. Pancytopenia. I am not sure if this is related to the HIV or alcohol. B12 level, folate, those were all analyzed and were within normal limits. I will get a hematology opinion. It may be multifactorial. We will keep an eye on it. Certainly, we can transfuse as necessary although there is no active infection at this point that we are aware of. 4. Severe protein-calorie malnutrition. He is cachectic. It may be a combination of things, but he is on tube feeds and we will continue to monitor closely. cc: MD Young Macdonald MD
[2019-03-30] MEDS: FOLIC ACID 1 MG in NS 50 ML IV SCH (15:31)
--- NOTE | 2019-03-30 16:28 | HEMO/ONC CONSULTATION ---
DATE: 03/30/2019 REQUESTING PHYSICIAN: Christo Rosenberg MD REASON FOR CONSULTATION: Pancytopenia. HISTORY OF PRESENT ILLNESS: Mr. Chauhan is a 58-year-old gentleman who has known history of alcoholic liver disease and HIV and has had multiple recent hospital admissions in [facility] for alcohol withdrawal, pancreatitis, and pancytopenia. He was seen by Dr. Man 1month ago for the same. Extensive workup was performed with suspicion of drug induced and alcohol induced marrow dysfunction. He presented with some evidence of alcohol withdrawal on admission, complaining of abdominal pain. PAST MEDICAL HISTORY: Obtained from the chart as patient is unable to give history at this time. He was diagnosed with HIV in 2002. He is supposed to be on Atripla therapy which Dr. Milton is resuming via NG tube at this time. Most recent CD4 count was 69 on March 23. Chickenpox with involvement of the eye leading to blindness in the left eye. Pancytopenia. PAST SURGICAL HISTORY: Right eye surgery. ALLERGIES: No known drug allergies. MEDICATIONS: Atripla and hydrocodone. SOCIAL HISTORY: Patient smoked 40 pack years but quit in 2002 with his diagnosis of HIV. The patient reports approximately 40 ounces of whiskey daily, but has had multiple attempts to quit. This is per prior records as the patient is not able to give history. FAMILY HISTORY: Unable to be obtained. None pertinent per the chart reviewed. REVIEW OF SYSTEMS: Unable to be obtained as patient is obtunded at the time of consultation. PHYSICAL EXAMINATION: Vital Signs: Temperature 97.9 degrees, pulse 76, respiratory rate 25, blood pressure 92/64, O2 saturation 100% on room air. General: A chronically ill-appearing gentleman who is moaning and writhing in pain in the ICU bed unaccompanied. An NG tube is in place. Eyes: Sclerae anicteric. Conjunctiva pink. Cardiovascular: Regular rate and rhythm. Normal S1, S2. No murmurs, rubs, or gallops. Pulmonary: Lungs are clear to auscultation bilaterally without wheezes, rales, or rhonchi. Abdomen: Soft, nontender, mildly distended with no palpable hepatosplenomegaly. Extremities: No clubbing, cyanosis, or edema. 2+ pulses x4. Neurologic: Patient is obtunded and writhing in pain and not able to answer any questions or respond to any external stimuli. LABORATORY DATA: On the date of consultation, white count 2.21, hemoglobin 11, platelet count 32,000. On admission, platelet count was 49,000 with a white count of 4.95. Prior workup haptoglobin was normal in February. CD4 count as per HPI. Coags, INR 1.29 on this admission. PTT was normal on last admission. Fibrinogen was normal 319 on last admission. D-dimer was mildly elevated at 3.3 on last admission. Current chemistries: Creatinine 0.4, iron saturation 38%, ferritin 1027, total bilirubin 3.56, AST 113, ALT 42, alkaline phosphatase 299, ammonia 41. C- reactive protein on last admission was elevated at 45 with an LDH of 176. Serum protein electrophoresis showed M spike of 0.22, total albumin on this admission is 2.5. B12 and folic acid levels were normal. Current lipase is elevated 189. ASSESSMENT AND PLAN: 1. Pancytopenia: I reviewed his prior workup which did not show any evidence of ongoing disseminated intravascular coagulation (DIC) or any evidence of active opportunistic infection. He certainly has ongoing human immunodeficiency virus disease which is inadequately treated as well as alcohol toxicity and likely marrow suppression related to that. I will check a reticulocyte, LDH and CRP at this time. I would recommend supportive care at this time. Treat his underlying alcohol withdrawal, pancreatitis, human immunodeficiency virus and monitor for improvement in his counts. I do not think a bone marrow biopsy is necessary at this time, although start one certainly be done if his counts are not improving with adequate supportive care. 2. HIV: Dr. Milton is on board and has restarted the patient's Atripla therapy. CD4 count as per history of present illness. 3. Pancreatitis: Continue supportive care. NG tube in place. Continue to monitor. 4. Alcohol-induced hepatitis: Likely contributing to his pancytopenia. Continue supportive care. Avoid alcohol use as able. Reassess based on hospital course. Thank you for this consultation and the opportunity to participate in the care of this patient. We will follow along and leave further recommendations as indicated. cc: MD Caron Macdonald MD
[2019-03-30] MEDS: ATRIPLA PO SCH (21:30)
[2019-03-30] MEDS ORDERED: NS 1,000 ML IV SCH (22:45)
[2019-03-31] MEDS: THIAMINE 500 MG in NS 50 ML IV SCH ×2 (01:00→07:57)
--- NOTE | 2019-03-31 03:39 | GASTROENTEROLOGY CONSULTATION ---
DATE: 03/31/2019 REASON FOR CONSULTATION: Cirrhosis. HISTORY OF PRESENT ILLNESS: Mr. Adams Chauhan is a 58-year-old man with a past medical history HIV, alcohol pancreatitis and cirrhosis, anxiety, depression, who was recently admitted to [facility] with abdominal pain. He was admitted for alcohol withdrawal and alcohol detoxication. He has started on Librium for alcohol withdrawal and transferred to the ICU on 03/26, there he was noted to have several episodes of confusion and disorientation as well as agitation, requiring Ativan administration. He started on antibiotics for concern of possible aspiration pneumonia. Head CT in the ER done on 03/25 was negative for acute intracranial process. The patient was transferred from [place] to [facility] on 03/29 for persistent encephalopathy and ID consultation given is history of HIV and noted pancytopenia. Upon presentation, he had a nasogastric tube placement and initiation of lactulose with concern of possible hepatic encephalopathy. Today, the patient remains somnolent and minimally arousable, unable to follow commands or provide a history. History obtained for this consultation primarily from the medical record. REVIEW OF SYSTEMS: Unable to obtain. PAST MEDICAL HISTORY: As per HPI. Patient has left eye blindness. PAST SURGICAL HISTORY: Right eye surgery. ALLERGIES: No known drug allergies. HOME MEDICATIONS: Atripla, [place]. SOCIAL HISTORY: The patient smokes approximately 1 pack every 3 to 4 days. He has a longstanding history of heavy alcohol rhythm, drinking 4 to five 8 ounce glasses of whiskey a day prior to admission. His U-tox was positive for cannabinoids and benzodiazepines on admission. U-tox was negative for alcohol. FAMILY HISTORY: Positive for alcoholism. PHYSICAL EXAMINATION: Vital Signs: Temperature is 95.2, heart rate of 84, respiratory rate of 29, blood pressure 124/85, O2 saturation 97% on room air. Generally: Patient is ill-appearing, comatose, no obvious acute distress. HEENT: Pupils are equal, react to the light. Scleral icterus. Extraocular motor is intact when turning patient's head from [id number], however, sluggish. Oropharynx is dry. NG tube is in place. Neck: Supple. No JVD or lymphadenopathy. Cardiac: Regular rate and rhythm. No murmurs. Lungs: Coarse breath sounds bilaterally. No wheezing. No definitive crackles. Abdomen: Nondistended, nontender. Bowel sounds are present. No rebound or guarding. Extremities: No clubbing, cyanosis, or edema. The patient is noted to have mild asterixis when bending his hand back bilaterally. He is restrained. Skin: Noted jaundice. Neuro: Unable to assess given patient's altered mental status. LABS: White count of 2.2, hemoglobin 11.0, which is stable since admission, platelets of 32,000 from 17,000 on admission, the patient was transfused 2 units of platelets on presentation, 18 bands. Sodium 141, potassium 2.4, chloride 104, bicarb 27, BUN of 13, creatinine 0.4. Glucose of 101, calcium is 7.6, magnesium 1.6, total bilirubin 3.56, which is stable. AST of 113, ALT of 42, alkaline phosphatase of 299. Ammonia level on 03/29 was 41. Total protein of 4.9, albumin of 2.5, prealbumin of 4.9. Urinalysis on 03/26 showed trace ketones, protein, bilirubin, and white cells, as well as glucose. Blood cultures x2 are pending. His most recent CD4 was 69 on March 23. IMAGING: Abdominal ultrasound on 03/25/2019 shows contracted fatty infiltration of the liver, no evidence of focal liver lesion. Mildly prominent spleen, possible small bladder polyp. No discrete gallstones, questionable thickening of gallbladder rose versus exaggeration by the contraction state. The common bile duct measures [address] on 03/25/2019 shows no evidence of intracranial injury. Chest x-ray 03/27, severely low lung volumes. Renal ultrasound on 03/28, small amount of ascites. Normal exam of the urinary tract. Chest x-ray 03/29, tube in proper place. Chest x-ray 03/30, low lung volumes and suggestion of mild atelectasis at the bases. No discrete airspace consolidation appreciated by the plain radiograph. ASSESSMENT AND PLAN: Mr. Adams Chauhan is a 58-year-old gentleman with past medical history of HIV/AIDS, alcoholic pancreatitis and cirrhosis, who presented to outside hospital with alcohol withdrawal complicated by persistent encephalopathy as well as pancytopenia. Gastroenterology was consulted for treatment and evaluation of underlying alcohol cirrhosis and liver function tests abnormality that shows a mixed pattern of injury, likely related to decompensated cirrhosis. AST, ALT ratio is nearly 3:1, consistent with alcoholic liver disease. His Fib4 and APRI scores are consistent with cirrhosis. He is being treated with lactulose via NG tube with approximately 20 g b.i.d. with good stool output, however, minimal improvement in mental status. He has been getting Librium regularly as well as Ativan for agitation. He is approximately 1 week out from initial presentation, which would make it unusual for him to have DTs at this time, especially since his alcohol level was negative on presentation. I am concerned that administration of benzodiazepines, including Librium and Ativan, may be contributing to his persistent encephalopathy. Hematology and Infectious Disease have been consulted for evaluation of pancytopenia and HIV respectively. He does have notable leukopenia and thrombocytopenia with multiple etiologies that may be contributing to these findings, including bone marrow suppression from HIV and alcoholism as well as underlying cirrhosis. For his encephalopathy, I recommend stopping Librium for now and giving the patient Haldol p.r.n. for agitation. Continue lactulose b.i.d. and titrate to 3 to 4 bowel movements daily, hold for greater than 4 bowel movements in a 24 hour period. Correct any electrolyte abnormalities and avoid sedating medications that would be cleared hepatically. For cirrhosis, continue to trend his liver function tests and INR daily. There may be a component of alcoholic hepatitis. However, patient is not a candidate for steroids and his renal function is preserved. For Human immunodeficiency virus. Infectious Disease has been consulted. The patient was found to have some oral thrush. He is on nystatin and home Atripla. For his alcoholism. The patient is on a multivitamin, thiamine and folic acid. For pancytopenia. Hematology is following. Defer management to Dr. Gibson. Fluids, electrolytes, and nutrition. Patient has NG tube in place and receiving tube feeds. Protein calorie malnutrition, likely secondary to human immunodeficiency virus/acquired immunodeficiency syndrome, and alcoholism. We will monitor for refeeding syndrome. Thank you for this consult. I will follow with you. Please call with any questions or concerns. [facility]ITALVal
[2019-03-31] MEDS: PROTONIX PO SCH (06:24)
[2019-03-31 06:25] LABS: RETIC% 3.36 % (0.8-2.1); RETIC-HE 34.6 PG (28.2-36.6)
[2019-03-31 06:26] LABS: EOS# 0.03 X1000 (0.0-0.7); EOS% 1.4 % (0.0-10.0); HEMATOCRIT 32.7 % (42.0-52.0); HEMOGLOBIN 11.6 g/dL (14.0-18.0); MCH 33.9 PG (27-31); MCHC 35.5 g/dL (33-37); MCV 95.6 FL (81-99); MONO# 0.37 X1000 (0.11-0.59); MONO% 17.5 % (1.7-9.3); NEUT# 1.31 X1000 (1.4-6.5); NEUT% 62.1 % (42.2-75.2); RBC 3.42 XMIL (4.7-6.1); RDW 16.7 % (11.5-14.5); WBC 2.11 X1000 (4.8-10.8)
[2019-03-31 06:28] LABS: PLT 31 X1000 (130-400)
[2019-03-31 06:41] LABS: C REACTIVE PROT QUANT 75.67 mg/L (0.00-5.00)
[2019-03-31 06:55] LABS: AGAP 10; ALBUMIN 2.8 g/dL (3.5-5.0); ALKALINE PHOSPHATASE 363 U/L (32-122); BUN 15 mg/dL (8-22); CALCIUM 8.8 mg/dL (8.8-10.2); CHLORIDE 101 mmol/L (98-107); COSMO 279; CREATININE 0.4 mg/dL (0.7-1.2); ESTIMATED GFR > 60; GLUCOSE 141 mg/dL (70-104); GOT 155 U/L (10-34); GPT 56 U/L (10-44); POTASSIUM 3.2 mmol/L (3.5-5.1); SODIUM 138 mmol/L (136-145); TCO2 27 mmol/L (25-35); TOTAL BILIRUBIN 3.75 mg/dL (0.20-1.00); TOTAL PROTEIN 5.5 g/dL (6.3-8.3)
--- NOTE | 2019-03-31 08:11 | INFECTIOUS DISEASE PROGRESS NO ---
DATE: 03/31/2019 PRESENT ILLNESS: The patient has HIV infection. He also has oral candidiasis which could have spread to his esophagus. MEDICATIONS: The patient is on Atripla for his HIV infection and for his oral candidiasis with possible spread to the esophagus, he is on nystatin which can only be painted in his mouth. He is not able to swallow anything. I have added IV fluconazole in case the patient's hiren oral infection has spread to his esophagus. PHYSICAL EXAMINATION: Vital Signs: Temperature is 97.8 degrees, pulse 88, respirations 31, blood pressure 120/82. General: This is an ill-appearing, middle-aged male. The patient is obtunded. Head, Eyes, Ears, Nose, and Throat: No drainage noted from the nose or ears. I did not get a good look at the patient's oral cavity. Neck: No meningismus. Lungs: There was bilateral rhonchi. Cardiovascular: Heart rate is regular. Abdomen: Soft. It did not appear to be tender. Neurologic: The patient is obtunded. He did respond to verbal stimuli and he did not respond to passive movement of his extremities or neck. Integument: No rash noted. LAB AND X-RAY: The patient's blood cultures are still pending. Liver function studies remain elevated. Creatinine is 0.4. GFR is greater than 60. CBC shows a white count of 2100, hemoglobin 11.6, and platelet count 31,000. A chest x-ray done yesterday showed low lung volumes and mild atelectasis at the bases. There was no definite airspace consolidation noted. ASSESSMENT AND PLAN: The patient has human immunodeficiency virus infection for which he has been placed on Atripla which is the antiretroviral therapy the patient had been on before. The patient has oral candidiasis and might have esophageal candidiasis as well. I plan to continue nystatin to be painted in the patient's mouth and fluconazole to be given intravenously, not only for the oral candidiasis but also for possible esophageal involvement with hiren. COMORBIDITIES: He is an alcoholic and he smokes cigarettes, and he has HIV infection. cc: Santi Milton MD
[2019-03-31] MEDS: MYCOSTATIN SUSP PO SCH ×4 (08:44→21:55)
[2019-03-31] MEDS: XIFAXAN NG SCH ×2 (08:44→21:50)
[2019-03-31] MEDS: NICODERM PATCH TD SCH (08:44)
[2019-03-31] MEDS: THERA M PLUS PO SCH (08:44)
[2019-03-31] MEDS: LACTULOSE NG SCH ×2 (08:44→21:45)
--- NOTE | 2019-03-31 10:18 | Diag Imaging Result Doc PS360 ---
EXAM: CHEST-PORTABLE 03/31/2019 HISTORY: hypoxia TECHNIQUE: AP portable at 0956 COMMENT: There is an NG tube which passes below the diaphragm. The inspiration is slightly better than on 03/30/2019. There is platelike opacity over the right base which was not present previously. Otherwise are has been no significant change. IMPRESSION: Right lower and/or middle lobe atelectasis. Electronically signed by Ramesh Christine 03/31/2019 10:15 AM
[2019-03-31] MEDS: DUONEB (A & A) INH SCH ×3 (10:21→21:12)
--- NOTE | 2019-03-31 10:22 | Diag Imaging Result Doc PS360 ---
EXAM: ABDOMEN FLAT/UPRIGHT 03/31/2019 HISTORY: pain TECHNIQUE: Flat and upright abdomen portable at 1001 COMMENT: There is some gas in the transverse colon and some small bowel loops as well as in the rectosigmoid colon. There is an NG tube with its tip in the area of the fundus of the stomach. There is no evidence of organomegaly or mass. IMPRESSION: Nonspecific abdomen. Electronically signed by Ramesh Christine 03/31/2019 10:20 AM
[2019-03-31] MEDS: POTASSIUM CHLORIDE 20 MEQ/SWI 20 MEQ/100 ML IVPB IV SCH ×2 (10:48→13:57)
[2019-03-31 11:05] LABS: ALLEN TEST YES; BE 2.4 mmoll (-3.0-3.0); BLOOD TYPE ARTERIAL; HCO3-(ACT) 26.7 mmoll (20.0-26.0); METHB 1.2 % (0.0-1.5); MODALITY CANNULA; O2(CT) 15.5 mL/dL (15.0-23.0); O2HB 93.9 % (95.0-99.0); PCO2(98.6) 42 mmHg (35-45); PO2(98.6) 72 mmHg (60-100); SAMPLE BLOOD; SAO2 97.4 % (95.0-100.0); THB 11.7 g/dL (11.5-17.4); pH(98.6) 7.42 (7.35-7.45)
--- NOTE | 2019-03-31 11:51 | PROGRESS NOTE ---
DATE: 03/31/2019 SUBJECTIVE: There was concern that the patient may have aspirated today. No witnessed aspiration, but his work of breathing has increased greatly. He sounds very rhonchorous. I think he had very high residuals, but his tube feeds were stopped. OBJECTIVE: Blood pressure 105/70, heart rate 97, respiratory rate 35, 96 percent sat on 2 L. His temperature this morning was 92.6.Cardiovascular: Tachy. Pulmonary: Diffuse breath sounds with rales. GI: Soft, nontender, and nondistended. Bowel sounds are positive. LABORATORY: White count is 2, hemoglobin and hematocrit 11 and 32, and platelets 31,000. The pH 7.42, pCO2 42, PaO2 72, potassium is 3.2. T bilirubin is still 3.75. AST and ALT of 155 and 56. TSH 4.69. CRP 75. PROBLEM LIST: 1. Acute respiratory failure with hypoxia. Certainly possible this is aspiration. At this point, he has no fever or white count, but he is leukopenic. He has AIDS so I am going to initiate at least Zosyn, and we will see how he does. We may need to extend the spectrum because it looks like he has got a new infiltrate, and he may have aspirated. We will discuss with Dr. Milton about changing antibiotics subsequently. 2. HIV with very low CD4 count. He is on Atripla. We are going to continue to monitor him. 3. Alcohol withdrawal syndrome. We stopped the Librium because of over-sedation, and he seems to be stable from that stand point. 4. Pancytopenia. We are going to continue to monitor. His numbers are overall stable. 5. Severe protein malnutrition. I am going to stop his fluids. We are going to give him some Clinimix because he has not really been eating very much. 6. Cirrhosis with hepatitis. I am still waiting on laboratory data. Gastroenterology is following. Adjusted his medications. DISPOSITION: Prognosis is poor from my standpoint, but we will discuss with family about their long-term wishes in this setting and follow closely. We will continue to monitor very closely. cc: Christo Rosenberg MD
[2019-03-31 12:31] LABS: INR 1.14; PROTIME 15.5 Seconds (11.0-16.0)
[2019-03-31 12:36] LABS: HEPATITIS PROFILE ACUTE SEE COMMENTS
--- NOTE | 2019-03-31 12:37 | CONSULTATION ---
DATE OF CONSULTATION: 03/31/2019 HISTORY: Mr. Chauhan was admitted 7 days ago with complaint of abdominal pain. History is taken from review of the chart. He is not able to provide history himself. I have not interviewed family. On admission, he was reported to be alert and oriented without focal neurologic findings. There is history of alcoholism and alcoholic cirrhosis. He had some restlessness requiring management, treated initially with lorazepam and then with chlordiazepoxide. He has had sedated appearance in recent days. There had been concern for aspiration. Workup here includes noncontrast CT of the head done 03/25/2019 and reported unremarkable. He has pancytopenia with significant leukopenia, platelets 30,000, elevated liver enzymes, and ammonia only 41. TSH was 4.69 this admission, 5.76 last month. Free T4 was normal at 1.25 last month. He does not take thyroid medicine. His admission drug screen was positive for benzodiazepine, cannabis, negative for opiates. Home medicine list recorded on admission includes hydrocodone based on the computer record, but I do not know if that is accurate, and I do not know if he had been taking hydrocodone in the past. I do not know if the drug screen was obtained before he received his first dose of benzodiazepine here, but he does not have a benzodiazepine listed as a home medicine. PHYSICAL EXAMINATION: On exam now, he is supine, not responding to name calling, questions, moderate noxious stimulation. With more vigorous stimulation, he demonstrated some withdrawal of each limb. There was some grimace showing symmetric facial motility. With passive eye opening, there is full lateral eye movement apparent. Both pupils are very small with uncertain reactivity to light. (There is report that he is blind in the right eye.) Tongue is midline. Limb tone is symmetric. Plantar response is silent bilaterally. Reflexes are absent at the ankles. He was not attentive to brief bedside sensory testing. Neck is supple. IMPRESSION: Global encephalopathy, uncertain but likely multiple etiologies. There could be a baseline cognitive impairment syndrome related to his chronic ethanol overuse. He might have an HIV encephalopathy/dementia syndrome, but I do not see evidence of HIV encephalitis. There may be component of hepatic encephalopathy. Certainly, there seems to be significant sedative effect with recent medications. Last lorazepam was about 36 hours ago. Last chlordiazepoxide was 25 mg dose about 30 hours ago. He has haloperidol ordered if needed with no dose recorded so far. I do not have any urgent suggestion. I agree with Dr. Cornelius's recommendations to try to limit sedating medicines. I do not think we need further imaging now. We can consider EEG if responsiveness does not improve, or if he has any clinical evidence of seizure. Thanks for asking Neurology to see Mr. Chauhan. cc: MD BASIA Putnam III
[2019-03-31] MEDS ORDERED: NS 250 ML ONE (14:00)
[2019-03-31] MEDS: CLINIMIX E 4.25%-5% SOLUTION 1,000 ML IV SCH (14:11)
[2019-03-31] MEDS: ZOSYN 3.375 GM in NS 50 ML IV SCH ×3 (16:54→23:18)
[2019-03-31] MEDS: DIFLUCAN 400 MG/NS 400 MG/200 ML IVPB IV SCH (17:08)
[2019-03-31] MEDS: FOLIC ACID 1 MG in NS 50 ML IV SCH (17:16)
[2019-03-31 17:18] LABS: HEMATOCRIT 32.1 % (42.0-52.0); HEMOGLOBIN 11.3 g/dL (14.0-18.0); MCV 96.7 FL (81-99); RBC 3.32 XMIL (4.7-6.1)
[2019-03-31 17:19] LABS: MCHC 35.2 g/dL (33-37); RDW 17.1 % (11.5-14.5)
[2019-03-31 17:25] LABS: PLT 37 X1000 (130-400)
[2019-03-31] MEDS: ATRIPLA PO SCH (21:50)
--- NOTE | 2019-04-01 01:40 | PROVIDER PROGRESS NOTE ---
Progress Note LATE ENTRY PROGRESS NOTE FOR 03/31/2019 S: No acute overnight events. Patient remains comatose. He is having multiple bowel movements with lactulose without improvement. No rectal bleeding or melena. Hypothermic on bear hugger. O: Last Vital Signs Temp 97.0 F L 04/01/19 00:00 Pulse 96 H 04/01/19 00:46 Resp 21 04/01/19 00:46 BP 134/88 04/01/19 00:46 Pulse Ox 100 04/01/19 00:46 Height 6 ft Weight 164 lb 14.4 oz GEN: comatose HEENT: +icterus, PERRL, NGT in place NECK: supple, no JVD CV: tachycardic, regular PULM: CTAB anteriorly ABD: soft NT/ND, BS present, no ascites EXT: no cce NEURO: withdrawal to pain in RUE, LLE with grimacing, otherwise no response to verbal or noxious stimuli in LUE/RLE; did not perform sternal rub LABS: 03/31/19 03/31/19 03/31/19 06:00 06:00 06:00 WBC 2.11 L Hgb 11.6 L Plt Count 31 L* INR pH pCO2 pO2 Sodium 138 Potassium 3.2 L Chloride 101 Carbon Dioxide 27 BUN 15 Creatinine 0.4 L Glucose 141 H Total Bilirubin 3.75 H AST 155 H ALT 56 H Alkaline Phosphatase 363 H C-Reactive Prot, Quant Total Protein 5.5 L Albumin 2.8 L TSH 4.69 H 03/31/19 03/31/19 03/31/19 06:00 10:50 12:21 WBC Hgb Plt Count INR 1.14 pH 7.42 pCO2 42 pO2 72 Sodium Potassium Chloride Carbon Dioxide BUN Creatinine Glucose Total Bilirubin AST ALT Alkaline Phosphatase C-Reactive Prot, Quant 75.67 H Total Protein Albumin TSH ASSESSMENT AND PLAN: Mr. Adams Chauhan is a 58-year-old gentleman with HIV/AIDS (CD4 69), h/o alcoholic pancreatitis and cirrhosis who initially presented to [facility] with alcohol withdrawal complicated by persistent encephalopathy and pancytopenia. GI following for alcoholic cirrhosis and concern for PSE; however, patient has not improved with lactulose therapy. He has not receiving anymore sedation and has not required haldol for agitation. Neurology was consulted today and believes he has global encephalopathy, which could be caused by multiple etiologies. His LFTs have remained stable and INR is within normal limits. He does not appear to be in acute liver failure. # AMS: unclear etiology; neuro following; cont empiric lactulose & titrate for 3-4 BMs daily; hold next dose for >4 BMs in 24 hrs; start rifaximin 550mg BID; holding sedating meds; replete lytes # Alcoholic cirrhosis: LFTs stable; INR WNL; trending LFTs daily; continue MVI, thiamine, folate # Pancytopenia: multifactorial; seen by hematology; no overt bleeding # HIV/AIDS: on Atripla per ID; on empiric zosyn # Severe protein calorie malnutrition: on clinimix Will follow with you. Please call with questions
[2019-04-01] MEDS: DUONEB (A & A) INH SCH ×4 (03:55→22:43)
[2019-04-01 05:47] LABS: BASO# 0.01 X1000 (0.0-0.2); BASO% 0.3 % (0.0-0.8); EOS# 0.04 X1000 (0.0-0.7); HEMATOCRIT 36.1 % (42.0-52.0); HEMOGLOBIN 12.4 g/dL (14.0-18.0); LYMPH# 0.69 X1000 (1.2-3.4); LYMPH% 17.9 % (20.5-51.1); MCH 34.3 PG (27-31); MCHC 34.3 g/dL (33-37); MCV 99.7 FL (81-99); MONO# 0.67 X1000 (0.11-0.59); MONO% 17.4 % (1.7-9.3); NEUT# 2.45 X1000 (1.4-6.5); NEUT% 63.4 % (42.2-75.2); PLT 40 X1000 (130-400); RBC 3.62 XMIL (4.7-6.1); RDW 17.5 % (11.5-14.5); WBC 3.86 X1000 (4.8-10.8)
[2019-04-01 05:54] LABS: AGAP 12; ALB/GLOB RATIO 0.9; ALBUMIN 2.7 g/dL (3.5-5.0); ALKALINE PHOSPHATASE 391 U/L (32-122); BUN 13 mg/dL (8-22); CALCIUM 8.5 mg/dL (8.8-10.2); CHLORIDE 100 mmol/L (98-107); COSMO 278; CREATININE 0.4 mg/dL (0.7-1.2); ESTIMATED GFR > 60; GLUCOSE 143 mg/dL (70-104); GOT 138 U/L (10-34); GPT 59 U/L (10-44); MAGNESIUM 1.8 mg/dL (1.5-2.7); PHOSPHORUS 3.3 mg/dL (2.7-4.5); SODIUM 138 mmol/L (136-145); TCO2 26 mmol/L (25-35); TOTAL BILIRUBIN 3.32 mg/dL (0.20-1.00); TOTAL PROTEIN 5.7 g/dL (6.3-8.3)
[2019-04-01] MEDS: PROTONIX PO SCH (06:10)
[2019-04-01] MEDS: ZOSYN 3.375 GM in NS 50 ML IV SCH ×4 (06:10→23:55)
[2019-04-01] MEDS: CLINIMIX E 4.25%-5% SOLUTION 1,000 ML IV SCH ×3 (06:16→16:59)
[2019-04-01 07:52] LABS: INR 1.26; PROTIME 16.8 Seconds (11.0-16.0)
[2019-04-01] MEDS: MYCOSTATIN SUSP PO SCH ×4 (08:29→21:10)
[2019-04-01] MEDS: XIFAXAN NG SCH ×2 (08:29→21:10)
[2019-04-01] MEDS: NICODERM PATCH TD SCH (08:29)
[2019-04-01] MEDS: LACTULOSE NG SCH ×2 (08:29→21:10)
[2019-04-01] MEDS: THERA M PLUS PO SCH (08:29)
[2019-04-01] MEDS ORDERED: MISC. PHARMACY COMMUNICATION SCH (10:00)
[2019-04-01] MEDS: DIFLUCAN 400 MG/NS 400 MG/200 ML IVPB IV SCH (10:26)
--- NOTE | 2019-04-01 10:26 | INFECTIOUS DISEASE PROGRESS NO ---
DATE: 04/01/2019 PRESENT ILLNESS: The patient has HIV infection. He also has oral candidiasis, which may have spread to his esophagus. On his latest chest x-ray, there was no mention made of a pneumonia. MEDICATIONS: The patient is on Atripla for his HIV infection. For his oral candidiasis, which may have spread to the esophagus, he is on nystatin and IV fluconazole. Yesterday, Dr. Rosenberg placed the patient on Zosyn. PHYSICAL EXAMINATION: Vital Signs: Temperature is 98 degrees, pulse 101, respirations 29, blood pressure 131/98. General: This is an ill-appearing, middle-aged male. He is obtunded. HEENT: He does not have any drainage from his nose or ears. Neck: No meningismus. Lungs: There were bilateral rhonchi. Cardiovascular: Heart rate is regular. Abdomen: Soft and nontender. Neurologic: The patient is obtunded. He did not respond to verbal stimuli. There is no tremor. Integument: No rash noted. IMAGING AND LABORATORY DATA: Chest x-ray shows partial atelectasis of the right lung. X-ray of the abdomen shows no pathologic condition. Hepatitis panel is nonreactive. Liver function studies are elevated, with the alkaline phosphatase highest at 391. Creatinine is 0.4. GFR is greater than 60. CBC shows a white count of 3860, hemoglobin 12.4, and platelet count 40,000. ASSESSMENT AND PLAN: The patient has human immunodeficiency virus infection, for which he is receiving Atripla. The patient has oral candidiasis, which might have spread to the esophagus. The patient is on nystatin to be painted in the patient's mouth, and fluconazole intravenously to treat the Tasha infection. COMORBIDITIES: The patient is an alcoholic, and he smokes cigarettes. He also has HIV infection. cc: Santi Milton MD
--- NOTE | 2019-04-01 12:44 | GASTROENTEROLOGY PROGRESS NOTE ---
DATE: 04/01/2019 ATTENDING PHYSICIAN: Dr. Nichole. SUBJECTIVE: The patient is currently lying in bed. He is drowsy. He could not answer any of my questions. He was having some gurgling in the back of the throat, and I spoke to the nurse about deep suctioning his throat. According to the records and the nursing reports, no documented fevers. No nausea, vomiting, vomiting blood, and no blood in the stools. OBJECTIVE: Vital Signs: Temperature of 97.9 degrees, pulse 101, respiratory rate 29, blood pressure 131/98, saturating 100% on 2 L nasal cannula. Body weight of 172 pounds, BMI 23.3 kg/m. General: Moderately built, well nourished, lying in bed, currently drowsy and gurgling, likely from oropharyngeal secretions. HEENT: Positive pallor. Mild icterus. Nasal cannula in place. Neck: Supple. Abdomen: Soft, nondistended. No guarding. No rebound. No ascites. Extremities: No cyanosis, clubbing. Neurologic: He opens his eyes to commands. He does not respond to any questions otherwise. According to the nursing report, he has been drowsy since admission. IMAGING AND LABORATORY DATA: Hemoglobin and hematocrit are 12.4 and 36.1, white count 3.86, platelet count of 40,000. INR 1.26, PT of 16.8. Sodium 138, potassium 4, chloride 100, bicarb 20, anion gap 12, BUN of 13, creatinine 0.4, glucose of 143, calcium 8.5. Phosphorus 3.3, magnesium 1.8. Total bilirubin 3.32, AST 138, ALT 59, alkaline phosphatase 391, total protein 5.7, albumin of 2.7. CRP 75.67. TSH 4.69. Hepatitis panel is nonreactive. His liver enzymes are stable. His bilirubin is slightly lower. Ammonia was checked on 03/29/2019 and was 41. His blood culture x2 is negative at 48 hours. Abdominal x-ray from yesterday showing nonspecific abdomen with the NG tube tip in the stomach. Chest x-ray yesterday showed right lower and middle lobe atelectasis. Abdominal ultrasound on admission on 03/25/2019 showed fatty infiltration of the liver, mildly prominent spleen, contracted gallbladder, possible small gallbladder polyp, no discrete gallstones, questionable thickening of the gallbladder wall versus exacerbation by the contracted state, normal-caliber common bile duct at 3 mm. IMPRESSION AND PLAN: 1. Alcoholic cirrhosis. His hepatitis panel is nonreactive. Continue to follow the liver enzymes and daily INR. Continue multivitamin, thiamine, and folate. His INR is trending down. 2. Pancytopenia. He is being seen by Hematology. His thrombocytopenia is slightly improved at 40,000. 3. Human immunodeficiency virus/acquired immune deficiency syndrome. He is on Atripla per Dr. Milton. 4. Altered mental status, unclear etiology. He is on empiric lactulose, titrated for 3 to 4 bowel in 24 hours. He is being started on Xifaxan 550 mg by mouth twice daily. Continue to watch his electrolytes, and replete them as needed by the primary care team. 5. History of alcoholic pancreatitis. Aware. 6. Alcoholism. The patient will need to be counseled about quitting alcohol once his mental status improves. 7. Protein calorie malnutrition. He is on Clinimix. The patient will continue multivitamins daily. 8. Smoker. The patient is on NicoDerm patch. 9. Gastrointestinal prophylaxis. Protonix once daily. 10. He is on empiric Zosyn for possible infection per the primary team. The above plans were discussed with the patient's nurse at bedside, and all questions were answered. Please call us with any further questions. Will also call a pharmacy consult to check the medication list for possible hepatotoxic medications. The above plans were discussed with the patient's nurse at bedside. All questions were answered. cc: MD Dr. Dionisio Gordon MD
--- NOTE | 2019-04-01 12:56 | PROGRESS NOTE ---
DATE: 04/01/2019 Mr. Chauhan continues poorly responsive but today he did open his eyes, squint, grimace, nod his head when I spoke to him. He did not speak to me but he did follow simple commands including holding up 2 fingers. There is full lateral eye movement. Facial motility is symmetric. Limb tone is symmetric. Neck is supple. IMPRESSION: Global encephalopathy, multiple factors as outlined in previous note. I do not have any new thoughts or new suggestions today from neurology standpoint. Thanks for asking Neurology to see Mr. Chauhan. cc: MD BASIA Putnam III
--- NOTE | 2019-04-01 13:14 | Diag Imaging Result Doc PS360 ---
EXAM: CT THORAX W/O CONTRAST INDICATION: ? pneumonia. TECHNIQUE: This exam was performed using automated exposure control, adjustment of mA or kV according to patient size, and/or use of iterative reconstruction technique. COMPARISON: None. FINDINGS: There are small bilateral pleural effusions and adjacent dependent atelectasis. There is bronchial mucosal thickening bilaterally, most significant at the right lung base suggesting bronchitis. There are a few small foci of groundglass opacity in the right middle lobe, lingula, and left upper lobe near the apex suggesting nonspecific foci of pneumonitis or edema. There are mild biapical fibrotic changes. No significant mediastinal lymphadenopathy is appreciated. There is no cardiomegaly. There is coronary artery atherosclerotic calcification. An NG tube is noted with the tip in the stomach. Limited views of the upper abdomen reveals small volume ascites tracking around the liver and spleen. IMPRESSION: 1.Small bilateral pleural effusions with adjacent atelectasis. 2.Mild bronchial mucosal thickening that is most significant at the right lower lobe suggesting bronchitis. 3.A few small patches of groundglass opacity bilaterally suggesting nonspecific foci of pneumonitis or edema. 4.Small volume ascites tracking around the liver and spleen. Electronically signed by Saul Flores 04/01/2019 1:12 PM
--- NOTE | 2019-04-01 14:12 | PROGRESS NOTE ---
DATE: 04/01/2019 INTERVAL HISTORY: Patient with slight improvement in mental status. Arousing a little more. Attempting to speak some. Remains quite encephalopathic. Does not appear to be clearing his oral secretions very well. Significant upper airway noise and gurgling. Afebrile overnight. No hypothermia in the neck in the last 24 hours. REVIEW OF SYSTEMS: Unable to obtain secondary to patient's mental status. LABS: WBC 3.86, hemoglobin 12.4, hematocrit 36.1, platelets 40, absolute neutrophil count 2450, INR 1.26. Sodium 138, potassium 4. BUN 13, creatinine 0.6, total bilirubin 3.3. AST 138, ALT 59, alkaline phosphatase 391. OBJECTIVE: Vitals: Temperature 96.4 to 98.2, pulse 97, respirations 18, blood pressure 129/83, O2 saturation 100% on 2 L by nasal cannula. General: On physical examination, no acute distress, ill appearing. Vitals: As above. HEENT: Normocephalic, atraumatic. Moist mucous membranes. Neck: No cervical adenopathy. Cardiovascular: Regular rate and rhythm. No murmurs noted. Pulmonary: Mildly decreased breath sounds throughout. Scattered rales. Abdomen: Soft, nontender, nondistended. Bowel sounds positive. Extremities: Peripheral pulses decreased, but intact. No clubbing or cyanosis. Neurologic Exam: Limited by mental status, but withdraws to noxious stimuli in all extremities. Pupils equal, round, reactive to light. No facial asymmetry. Attempts to speak, although largely incoherent. Psychiatric: Remains somewhat somnolent and encephalopathic. Speech limited. What he does try to say is extremely difficult to understand. I believe he may have been oriented to person at the time of my exam, but certainly to nothing else. Skin: No rashes or lesions identified. ASSESSMENT AND PLAN: 1. Metabolic encephalopathy. Multifactorial with possible underlying human immunodeficiency dementia, heavy alcohol use for prolonged period, cirrhosis. We will continue attempting to minimize sedating medications. Does appear to have some slight improvement. Neurology following. 2. Alcohol withdrawal. Now off all benzodiazepine and no further sign of withdrawal. Appears to be past the range for further withdrawal at this point. 3. Human immunodeficiency virus. The patient on Atripla. Last CD4 count of 69 on 03/23. Continue monitoring. 4. Pancytopenia, likely multifactorial with human immunodeficiency virus and cirrhosis. Slight improvement in all counts today. Continue to monitor. No longer neutropenic, which is helpful. 5. Alcoholic cirrhosis. Bilirubin slightly down. Still with mild elevations in AST and ALT, likely ongoing low-level alcoholic hepatitis. Continue to monitor. Continue lactulose and rifaximin. 6. Possible aspiration pneumonia. The patient certainly with poor clearing of oral secretions. Some suggestion of possible infiltrate on x-ray yesterday. Started empirically on Zosyn for that at that time. Will get a chest CT to help clarify if this is fluid or pneumonia. Continue empiric antibiotic pending further Infectious Disease recommendations. 7. Oral candidiasis with possible esophageal involvement. Patient on nystatin and fluconazole as per Infectious Disease. Continue to monitor.
[2019-04-01] MEDS: FOLIC ACID 1 MG in NS 50 ML IV SCH (17:14)
[2019-04-01] MEDS: ATRIPLA PO SCH (21:10)
[2019-04-02] MEDS: CLINIMIX E 4.25%-5% SOLUTION 1,000 ML IV SCH ×2 (02:36→17:05)
[2019-04-02] MEDS: DUONEB (A & A) INH SCH ×4 (04:00→22:52)
[2019-04-02] MEDS: ZOSYN 3.375 GM in NS 50 ML IV SCH ×4 (04:49→23:26)
[2019-04-02 05:37] LABS: AGAP 9; ALBUMIN 2.6 g/dL (3.5-5.0); ALKALINE PHOSPHATASE 354 U/L (32-122); BUN 10 mg/dL (8-22); CALCIUM 8.4 mg/dL (8.8-10.2); CHLORIDE 100 mmol/L (98-107); COSMO 276; CREATININE 0.3 mg/dL (0.7-1.2); ESTIMATED GFR > 60; GLUCOSE 185 mg/dL (70-104); GOT 112 U/L (10-34); GPT 53 U/L (10-44); POTASSIUM 3.4 mmol/L (3.5-5.1); SODIUM 136 mmol/L (136-145); TCO2 27 mmol/L (25-35); TOTAL BILIRUBIN 2.72 mg/dL (0.20-1.00); TOTAL PROTEIN 5.2 g/dL (6.3-8.3)
[2019-04-02 05:47] LABS: BASO# 0.01 X1000 (0.0-0.2); BASO% 0.3 % (0.0-0.8); EOS# 0.05 X1000 (0.0-0.7); EOS% 1.4 % (0.0-10.0); HEMATOCRIT 31.3 % (42.0-52.0); HEMOGLOBIN 10.7 g/dL (14.0-18.0); LYMPH# 0.65 X1000 (1.2-3.4); LYMPH% 17.9 % (20.5-51.1); MCH 33.2 PG (27-31); MCHC 34.2 g/dL (33-37); MCV 97.2 FL (81-99); MONO# 0.42 X1000 (0.11-0.59); MONO% 11.5 % (1.7-9.3); NEUT# 2.51 X1000 (1.4-6.5); NEUT% 68.9 % (42.2-75.2); RBC 3.22 XMIL (4.7-6.1); RDW 17.1 % (11.5-14.5); WBC 3.64 X1000 (4.8-10.8)
[2019-04-02 05:51] LABS: PLT 32 X1000 (130-400)
[2019-04-02] MEDS: PROTONIX PO SCH (06:14)
[2019-04-02] MEDS ORDERED: LASIX IV ONE (08:55)
--- NOTE | 2019-04-02 09:13 | PROGRESS NOTE ---
DATE: 04/02/2019 INTERVAL HISTORY: The patient remains quite encephalopathic. Slightly better clearing of his oral secretions, but still requiring suction frequently. Remains afebrile overnight. Family reportedly en route to discuss goals of care. Attempted to call family yesterday, but no answer. They may have been flying at the time. No other acute events. REVIEW OF SYSTEMS: Unable to obtain secondary to patient's mental status. LABS: WBC 3.6, hemoglobin 10.7, hematocrit 31.3, platelets 32. Sodium 136, potassium 3.4, BUN 10, creatinine 0.3, glucose 185, total bilirubin 2.7. AST 112, ALT 53, alkaline phosphatase 354. BNP 606. IMAGING: CT chest with small bilateral effusions with adjacent atelectasis, mild bronchial mucosal thickening especially in the right lower lobe suggesting bronchitis, scattered ground- glass opacities suggesting pneumonitis versus edema, small volume ascites around the liver and spleen. VITAL SIGNS: T-max 98.2, pulse 79, respirations 16, blood pressure 149/84, O2 saturation 100% on 2 L by nasal. PHYSICAL EXAMINATION: General: No acute distress. Vitals: As above. HEENT: Normocephalic, atraumatic. Moist mucous membranes. Neck: Cervical adenopathy. Mild scleral icterus. Cardiovascular: Regular rate and rhythm. No murmurs noted. Pulmonary: Still with mildly decreased breath sounds throughout with a few scattered rales, essentially stable. Abdomen: Soft, nontender, nondistended. Bowel sounds positive. Extremities: Peripheral pulses decreased, but intact. No clubbing or cyanosis. Neurologic: Limited by mental status, but occasional spontaneous movement of all extremities. Arouses briefly to light sedation, but follows no commands. Limited verbalizations are incoherent, and he immediately falls back to sleep. Psychiatric: Remains significantly somnolent, encephalopathic, not clearly oriented at all at this point. Skin: No new rashes or lesions identified. Jaundice fairly stable. ASSESSMENT AND PLAN: 1. Metabolic encephalopathy likely multifactorial. Initially favored alcohol withdrawal, but he is really past the point of that now. Still with underlying possible human immunodeficiency virus, dementia, hepatitis B, heavy alcohol use for prolonged period, cirrhosis although last ammonia was not that bad. Has had some slight improvement over the last couple days. We will continue to minimize sedating medications. Continue lactulose and monitor closely. 2. Alcohol withdrawal. No further sign of withdrawal off benzodiazepine. 3. Human immunodeficiency virus. Patient on Atripla. Last CD4 count 69 on 03/23. Continue monitoring. Infectious Disease following. 4. Pancytopenia likely multifactorial with human immunodeficiency virus and cirrhosis. Slight downtrend today, but overall stable over the last 3 to 4 days. Continue monitoring for signs of bleeding. 5. Alcoholic cirrhosis and likely alcoholic hepatitis. Bilirubin, AST, ALT with overall downtrend. Continue to monitor. Continue lactulose and rifaximin. 6. Possible aspiration pneumonia/pneumonitis versus edema. Patient with poor clearing of oral secretions, possible infiltrate on last x-ray. Started empirically on Zosyn at that time. Chest CT still with some suggestion of bronchitis and/or pneumonitis, although less helpful than possible. Also, some suggestion of edema, so BNP was checked which was mildly elevated. Echocardiogram pending to assess for possible congestive heart failure from alcoholic cardiomyopathy. Ins and outs suggest patient is approximately 10 liters positive for the admissions. We will go ahead and give a single dose of Lasix now pending the results of that echocardiogram. 7. Oral candidiasis with possible esophageal involvement. Patient on nystatin and fluconazole as per Infectious Disease. Continue to monitor. 8. Hypokalemia. Will replete and monitor. On last check, magnesium and phosphorus were okay.
--- NOTE | 2019-04-02 09:26 | INFECTIOUS DISEASE PROGRESS NO ---
DATE: 04/02/2019 PRESENT ILLNESS: Patient has the following infections: 1. HIV infection. 2. Oral candidiasis which may have spread to the patient's esophagus. 3. Pneumonia and bronchitis as seen on the patient's CT scan done yesterday. MEDICATIONS: The patient is on Atripla for his HIV infection and the patient is on nystatin and IV fluconazole for his oral candidiasis which may have spread to the esophagus. PHYSICAL EXAMINATION: Vital Signs: Temperature is 97.8 degrees, pulse 79, respirations 16, blood pressure is 149/89. General: This is an ill-appearing middle-aged male. He is in no acute distress. Head, Eyes, Ears, Nose, and throat: No drainage noted from the nose or ears. He did follow requests that I asked him to do so. His hearing appeared to be somewhat intact. I was unable to determine how well the patient can see. Neck: He did not seem to have any pain with movement of his neck. Lungs: There were bilateral rhonchi. Cardiovascular: Heart rate is regular. Abdomen: Soft and nontender. Neurologic: The patient is more awake today. He did follow request to open his eyes and to move his extremities. The patient does not have a tremor. Integument: No rash noted. LABS AND RADIOLOGY: The CT scan of the chest showed bronchitis and pneumonia. Larry-Robertson virus DNA was 165. CMV DNA was undetected and hepatitis panel was nonreactive. The alkaline phosphatase is 354. The creatinine is 0.3, GFR is greater than 60. CBC shows a white count of 3640, hemoglobin 10.7, and platelet count 32,000. The patient has been on Zosyn for 2 days now, on vancomycin for 1 day and fluconazole for 3 days. ASSESSMENT AND PLAN: The patient has human immunodeficiency virus infection and the patient is receiving Atripla for this. For the patient's oral candidiasis, which might have spread to the esophagus, the patient is on nystatin and fluconazole intravenously. The patient appears to have pneumonia and bronchitis and the patient is on Zosyn for these 2 infections. COMORBIDITIES: The patient is an alcoholic and cigarette smoker. He also has HIV infection. cc: Santi Milton MD
[2019-04-02] MEDS: POTASSIUM CHLORIDE 20 MEQ/SWI 20 MEQ/100 ML IVPB IV SCH ×2 (09:42→12:28)
[2019-04-02] MEDS: LACTULOSE NG SCH ×2 (09:43→21:11)
[2019-04-02] MEDS: THERA M PLUS PO SCH (09:43)
[2019-04-02] MEDS: MYCOSTATIN SUSP PO SCH ×4 (09:43→21:11)
[2019-04-02] MEDS: NICODERM PATCH TD SCH (09:43)
[2019-04-02] MEDS: XIFAXAN NG SCH ×2 (09:43→21:11)
[2019-04-02] MEDS: DIFLUCAN 400 MG/NS 400 MG/200 ML IVPB IV SCH (12:30)
--- NOTE | 2019-04-02 13:09 | PROGRESS NOTE ---
DATE: 04/02/2019 SUBJECTIVE: Mr. Chauhan continues poorly responsive. OBJECTIVE: He seems a little bit improved bedside exam today. He was more quickly alert, maintained attention better, spoke some words. He did not follow commands for specific limb movement and digit identification. He did move all limbs. Neck continues supple. Lateral eye movements are full with passive head turning. IMPRESSION: Global encephalopathy, no new findings. He seems to be slowly recovering. I do not have any new suggestion from Neurology standpoint. Thanks for asking us to see Mr. Chauhan. cc: Paty Tripp III, MD [facility]
[2019-04-02] MEDS: FOLIC ACID 1 MG in NS 50 ML IV SCH (17:05)
--- NOTE | 2019-04-02 17:39 | ECHO REPORT ---
ORDER DATE: 04/02/2019 INTERPRETING PHYSICIAN: Mike Dougherty MD. STUDY: 2D echocardiogram. CLINICAL INDICATIONS: Pulmonary edema and CHF. M-MODE MEASUREMENTS: Left ventricle end diastole: 4.1 cm. Left ventricle end systole: 2.4 cm. Posterior wall: 0.7 cm. Interventricular septum: 0.7 cm. Left atrium: 3.2 cm. Aortic diameter: 3.6 cm. SUMMARY OF 2-DIMENSIONAL IMAGIN. Left ventricular function appears to be normal. Ejection fraction is estimated at 61%. 2. The right ventricle appears to be normal. The atria appear to be normal. 3. The mitral valve looks normal with no significant regurgitation. 4. Pulsed wave Doppler of mitral inflow shows minimal reversal of the E and the A ratio. Ratio is 0.8. 5. Tissue Doppler of septal and lateral mitral annulus averages 11 cm. There is no diastolic dysfunction. 6. The aortic valve looks normal. Color flow mapping unremarkable. 7. Tricuspid valve looks normal. Color flow mapping unremarkable. 8. Pulmonary pressure is probably within normal range, estimated at 26 mmHg. Pulmonic valve is unremarkable. 9. There is no pericardial effusion, mass, and no thrombus. SUMMARY: This study shows 1. Normal left ventricular systolic function. 2. No diastolic dysfunction. 3. No evidence of any significant valvular abnormality. 4. No evidence of pulmonary hypertension. 5. No pericardial effusion, mass, and no thrombus. Clinical correlation is recommended. cc: Mike Dougherty MD
[2019-04-02] MEDS: ATIVAN IV PRN (18:20)
[2019-04-02] MEDS: ATRIPLA PO SCH (21:11)
--- NOTE | 2019-04-02 23:56 | PROVIDER PROGRESS NOTE ---
Progress Note S: No acute overnight events. Patient slightly more awake this AM mumbling words and following simple commands. He is on TFs and having bowel movements. O: Last Vital Signs Temp 98.1 F 04/02/19 20:00 Pulse 87 04/02/19 22:52 Resp 20 04/02/19 22:52 BP 130/92 04/02/19 21:31 Pulse Ox 100 04/02/19 22:52 Height 6 ft Weight 170 lb 14.4 oz GEN: lethargic, but arousable, oriented to "hospital" HEENT: +icterus, PERRL, NGT in place NECK: supple, no JVD CV: RRR, no murmurs PULM: coarse BS, no crackles ABD: soft NT/ND, BS present, no ascites : leal in place EXT: no cce NEURO: moves all extremities upon command, no asterixis LABS: 04/02/19 04/02/19 04/02/19 05:00 05:00 05:00 WBC 3.64 L Hgb 10.7 L Plt Count 32 L* Sodium 136 Potassium 3.4 L Chloride 100 Carbon Dioxide 27 BUN 10 Creatinine 0.3 L Glucose 185 H Total Bilirubin 2.72 H AST 112 H ALT 53 H Alkaline Phosphatase 354 H [id number] Pept 606 H Total Protein 5.2 L Albumin 2.6 L ASSESSMENT AND PLAN: Mr. Adams Chauhan is a 58-year-old gentleman with HIV/AIDS (CD4 69), h/o alcoholic pancreatitis and cirrhosis who initially presented to [facility] with alcohol withdrawal complicated by persistent encephalopathy and pancytopenia. GI following for alcoholic cirrhosis and concern for PSE. His mental status improved with holding benzo making over sedation likely a contributing cause of his persistent AMS. He is slowing improving. He is currently on antibiotics for aspiration pneumonia vs pneumonitis and antifungal therapy for thrush/hiren esophagitis. LFTs improving. # AMS: multifactorial; neuro following; empiric lactulose & titrate for 3-4 BMs daily; hold next dose for >4 BMs in 24 hrs; cont rifaximin 550mg BID; holding sedating meds; replete lytes # Alcoholic cirrhosis: LFTs improving; INR WNL; trending LFTs daily; continue MVI, thiamine, folate # Pancytopenia: multifactorial; seen by hematology; no overt bleeding # HIV/AIDS: on Atripla per ID; on empiric zosyn # Severe protein calorie malnutrition: on clinimix, TFs Will follow with you. Please call with questions
[2019-04-03] MEDS: DUONEB (A & A) INH SCH ×4 (02:59→21:09)
[2019-04-03] MEDS: PROTONIX PO SCH (06:05)
[2019-04-03] MEDS: CLINIMIX E 4.25%-5% SOLUTION 1,000 ML IV SCH ×2 (06:05→21:25)
[2019-04-03] MEDS: ZOSYN 3.375 GM in NS 50 ML IV SCH ×4 (06:05→23:00)
[2019-04-03 06:39] LABS: BASO# 0.01 X1000 (0.0-0.2); BASO% 0.4 % (0.0-0.8); EOS# 0.02 X1000 (0.0-0.7); EOS% 0.7 % (0.0-10.0); HEMATOCRIT 31.4 % (42.0-52.0); HEMOGLOBIN 10.9 g/dL (14.0-18.0); LYMPH# 0.17 X1000 (1.2-3.4); LYMPH% 6.1 % (20.5-51.1); MCH 33.5 PG (27-31); MCHC 34.7 g/dL (33-37); MCV 96.6 FL (81-99); MONO# 0.22 X1000 (0.11-0.59); MONO% 7.9 % (1.7-9.3); NEUT# 2.35 X1000 (1.4-6.5); NEUT% 84.9 % (42.2-75.2); RBC 3.25 XMIL (4.7-6.1); RDW 16.6 % (11.5-14.5); WBC 2.77 X1000 (4.8-10.8)
[2019-04-03 06:40] LABS: PLT 21 X1000 (130-400)
[2019-04-03 06:43] LABS: AGAP 9; BUN 10 mg/dL (8-22); CALCIUM 8.6 mg/dL (8.8-10.2); CHLORIDE 96 mmol/L (98-107); COSMO 273; CREATININE 0.3 mg/dL (0.7-1.2); ESTIMATED GFR > 60; GLUCOSE 234 mg/dL (70-104); MAGNESIUM 1.9 mg/dL (1.5-2.7); POTASSIUM 3.6 mmol/L (3.5-5.1); SODIUM 133 mmol/L (136-145); TCO2 28 mmol/L (25-35)
--- NOTE | 2019-04-03 08:46 | Diag Imaging Result Doc PS360 ---
CHEST-PORTABLE - 04/03/2019 INDICATION: edema, ? pneumonia COMPARISON: 03/31/2019 FINDINGS: There is a left PICC line in good position with the catheter tip at the upper SVC. Stable nasogastric tube in good position in the stomach. Lung volumes are low with some crowding in the lung bases. No infiltrates or edema. Heart size is top normal. No large pleural effusion. IMPRESSION: Low lung volumes but otherwise no acute disease. Electronically signed by Peng Mg 04/03/2019 8:44 AM
[2019-04-03] MEDS: MYCOSTATIN SUSP PO SCH ×5 (08:55→21:25)
[2019-04-03] MEDS: THERA M PLUS PO SCH (08:55)
[2019-04-03] MEDS: NICODERM PATCH TD SCH (08:55)
[2019-04-03] MEDS: XIFAXAN NG SCH ×2 (08:55→21:25)
[2019-04-03] MEDS: LACTULOSE NG SCH ×2 (08:55→21:25)
[2019-04-03 09:21] LABS: ALBUMIN 2.9 g/dL (3.5-5.0); TOTAL BILIRUBIN 2.66 mg/dL (0.20-1.00); TOTAL PROTEIN 5.7 g/dL (6.3-8.3)
[2019-04-03] MEDS: HUMALOG SUBQ SCH ×3 (10:53→21:25)
[2019-04-03] MEDS: DIFLUCAN 400 MG/NS 400 MG/200 ML IVPB IV SCH (10:54)
--- NOTE | 2019-04-03 14:05 | PROGRESS NOTE ---
DATE: 04/03/2019 INTERVAL HISTORY: Patient with continued slow improvement in mental status. Following some commands today. Still not clearing oral secretions very well. Afebrile overnight. No acute events. Long discussion with family today about his current stable and slowly improving but fragile situation. Answers all questions. REVIEW OF SYSTEMS: Unable to obtain secondary to patient's mental status. LABORATORY DATA: WBC 2.7, hemoglobin 10.9, hematocrit 31.4, platelet 21,000. Sodium 133, potassium 3.6, BUN 10, creatinine 0.3, glucose 215, magnesium 1.9, phos 2.8, total bilirubin 2.6, AST 132, ALT 61, alkaline phosphatase 366. IMAGING: Chest x-ray, low lung volumes but otherwise no acute disease. Improved from previous. VITAL SIGNS: T-max 98.1 degrees, pulse 88, respirations 36, blood pressure 145/95, O2 saturation 98% on 3 L by nasal cannula. PHYSICAL EXAMINATION: General: No acute distress. Vitals: As above. HEENT: Normocephalic, atraumatic. Moist mucous membranes. No cervical adenopathy. Mild scleral icterus persists. Cardiovascular: Regular rate and rhythm. No murmurs noted. Pulmonary: Mildly decreased breath sounds throughout remain with a few scattered rales, but largely clear at this point aside from significant upper airway noise. Extremities: Peripheral pulses decreased but intact. No clubbing or cyanosis. Neurologic: Limited by mental status but some occasional nonpurposeful movement of all extremities. Does arouse briefly and follows some commands. Will squeeze hands. Occasionally attempts to talk, but no coherent words. Psychiatric: Remains somnolent but more arousable. Remains disoriented. Skin: No new rashes or lesions identified. Jaundice unchanged. ASSESSMENT AND PLAN: 1. Metabolic encephalopathy, multifactorial with underlying human immunodeficiency virus with possible dementia, history of hepatitis B and heavy alcohol use for a prolonged period. Alcohol withdrawal on admission, although that likely resolved at this point, has had slow improvement over the last 2 to 3 days. Continue to minimize sedating medications. Continue lactulose and monitor closely. 2. Alcohol withdrawal. No further signs of withdrawal. Off of benzodiazepines. 3. Human immunodeficiency virus. Patient on Atripla. Last CD4 count reportedly 69 on 03/23/2019. Continue monitoring. Infectious Disease following. 4. Pancytopenia, likely multifactorial with human immunodeficiency virus and cirrhosis. Blood counts fairly stable, but white count and platelets downtrending. Monitor closely for any signs or symptoms of bleeding. If these occur, then we will transfuse platelets. The last INR was okay. 5. Alcoholic cirrhosis, likely alcoholic hepatitis. Bilirubin, AST, ALT, essentially stable today. Continue lactulose and Rifaximin. 6. Likely aspiration pneumonia/pneumonitis. The patient with poor clearing of oral secretions, possible infiltrate on x-ray few days ago. CT with some suggestion of bronchitis and/or pneumonitis. Also some suggestive of edema so BNP was checked, which was mildly elevated. However, echocardiogram does not show heart failure. Likely elevated BNP strictly from liver congestion. Gave 1 dose of Lasix and chest x-ray does appear slightly better today but will not give further Lasix at this time. 7. Oral candidiasis with possible esophageal involvement. Patient on nystatin, fluconazole as per Infectious Disease. 8. Hypokalemia. Improved today. We will continue to monitor and replete as necessary.
[2019-04-03] MEDS: FOLIC ACID 1 MG in NS 50 ML IV SCH (16:29)
[2019-04-03] MEDS: ATRIPLA PO SCH (21:29)
--- NOTE | 2019-04-03 23:54 | PROVIDER PROGRESS NOTE ---
Progress Note S: No acute overnight events. Patient opens eyes and tracks. He denies abdominal pain. O: Last Vital Signs Temp 96.9 F L 04/03/19 20:00 Pulse 88 04/03/19 22:31 Resp 31 H 04/03/19 22:31 BP 110/74 04/03/19 22:31 Pulse Ox 100 04/03/19 22:31 Height 6 ft Weight 152 lb 11.2 oz GEN: lethargic, but arousable HEENT: +icterus, PERRL, NGT in place NECK: supple, no JVD CV: RRR, no murmurs PULM: coarse BS, no crackles ABD: soft NT/ND, BS present, no ascites : leal in place EXT: no cce NEURO: follows simple commands, no asterixis LABS: 04/03/19 04/03/19 04/03/19 06:00 06:00 06:00 WBC 2.77 L Hgb 10.9 L Plt Count 21 L* D Sodium 133 L Potassium 3.6 Chloride 96 L Carbon Dioxide 28 BUN 10 Creatinine 0.3 L Glucose 234 H Total Bilirubin 2.66 H Direct Bilirubin 2.00 H AST 132 H ALT 61 H Alkaline Phosphatase 365 H Total Protein 5.7 L Albumin 2.9 L ASSESSMENT AND PLAN: Mr. Adams Chauhan is a 58-year-old gentleman with HIV/AIDS (CD4 69), h/o alcoholic pancreatitis and cirrhosis who initially presented to [facility] with alcohol withdrawal complicated by persistent encephalopathy and pancytopenia. GI following for alcoholic cirrhosis and concern for PSE. His mental status is slowly improving with holding benzo making over sedation likely a contributing cause of his persistent AMS. He is currently on antibiotics for aspiration pneumonia vs pneumonitis and antifungal therapy for thrush/hiren esophagitis. LFTs improving. # AMS: multifactorial; neuro following; empiric lactulose & titrate for 3-4 BMs daily; hold next dose for >4 BMs in 24 hrs; cont rifaximin 550mg BID; holding sedating meds; replete lytes # Alcoholic cirrhosis: LFTs improving; INR WNL; trending LFTs daily; continue MVI, thiamine, folate # Pancytopenia: multifactorial; seen by hematology; no overt bleeding # HIV/AIDS: on Atripla per ID; on empiric zosyn # Severe protein calorie malnutrition: on clinimix, TFs # Anemia: stable without overt bleeding Will follow with you. Please call with questions
[2019-04-04] MEDS: DUONEB (A & A) INH SCH ×4 (03:58→21:26)
[2019-04-04] MEDS: ZOSYN 3.375 GM in NS 50 ML IV SCH ×4 (05:52→22:42)
[2019-04-04] MEDS: PROTONIX PO SCH (05:59)
[2019-04-04] MEDS: HUMALOG SUBQ SCH ×4 (05:59→20:59)
[2019-04-04 06:24] LABS: INR 1.1; PROTIME 15.1 Seconds (11.0-16.0)
[2019-04-04 06:33] LABS: BASO# 0.01 X1000 (0.0-0.2); BASO% 0.2 % (0.0-0.8); EOS# 0.04 X1000 (0.0-0.7); EOS% 0.8 % (0.0-10.0); HEMATOCRIT 32.6 % (42.0-52.0); HEMOGLOBIN 11.2 g/dL (14.0-18.0); LYMPH# 0.56 X1000 (1.2-3.4); LYMPH% 10.9 % (20.5-51.1); MCH 33.2 PG (27-31); MCHC 34.4 g/dL (33-37); MCV 96.7 FL (81-99); MONO# 0.23 X1000 (0.11-0.59); MONO% 4.5 % (1.7-9.3); NEUT# 4.28 X1000 (1.4-6.5); NEUT% 83.6 % (42.2-75.2); RBC 3.37 XMIL (4.7-6.1); RDW 16.4 % (11.5-14.5); WBC 5.12 X1000 (4.8-10.8)
[2019-04-04 06:34] LABS: PLT 16 X1000 (130-400)
[2019-04-04 06:46] LABS: AGAP 10; BUN 14 mg/dL (8-22); CALCIUM 9.1 mg/dL (8.8-10.2); CHLORIDE 97 mmol/L (98-107); COSMO 271; CREATININE 0.3 mg/dL (0.7-1.2); ESTIMATED GFR > 60; GLUCOSE 176 mg/dL (70-104); POTASSIUM 4.1 mmol/L (3.5-5.1); SODIUM 133 mmol/L (136-145); TCO2 26 mmol/L (25-35)
[2019-04-04 06:52] LABS: HEMOGLOBIN A1C 4.7 % (4.8-6.0)
[2019-04-04] MEDS: LACTULOSE NG SCH ×2 (09:17→20:59)
[2019-04-04] MEDS: MYCOSTATIN SUSP PO SCH ×4 (09:17→20:59)
[2019-04-04] MEDS: XIFAXAN NG SCH ×2 (09:17→20:59)
[2019-04-04] MEDS: THERA M PLUS PO SCH (09:17)
[2019-04-04] MEDS: NICODERM PATCH TD SCH (09:17)
[2019-04-04 09:29] LABS: ALB/GLOB RATIO 0.9; ALBUMIN 2.7 g/dL (3.5-5.0); DIRECT BILIRUBIN 1.7 mg/dL (0.00-0.20); TOTAL BILIRUBIN 2.7 mg/dL (0.20-1.00); TOTAL PROTEIN 5.8 g/dL (6.3-8.3)
--- NOTE | 2019-04-04 10:29 | Diag Imaging Result Doc PS360 ---
EXAM: CHEST-PORTABLE 04/04/2019 HISTORY: cough, tachypnea TECHNIQUE: AP portable upright at 1011 COMMENT: There is a PICC line on the left with its tip in the superior vena cava and an NG tube which passes below the diaphragm into the stomach. The inspiration is suboptimal. There is still some linear opacity in the right lower lobe but this has diminished slightly since the previous study of 04/03/2019. IMPRESSION: Improved right lower lobe atelectasis. Electronically signed by Ramesh Christine 04/04/2019 10:27 AM
[2019-04-04] MEDS: DIFLUCAN 400 MG/NS 400 MG/200 ML IVPB IV SCH (11:20)
[2019-04-04] MEDS: CLINIMIX E 4.25%-5% SOLUTION 1,000 ML IV SCH (11:20)
--- NOTE | 2019-04-04 13:59 | PROGRESS NOTE ---
DATE: 04/04/2019 INTERVAL HISTORY: The patient is roughly stable. Mental status continues to improve but very slowly. Was able to answer some yes/no questions today, following commands intermittently. Continues to not clear his oral secretions very well, but a little better than previous. Remains afebrile. No acute events overnight. REVIEW OF SYSTEMS: Unable to obtain secondary to mental status, but he denies pain or dyspnea. LABORATORY: WBC is 5.1, hemoglobin 11.2, hematocrit 32.6, platelets 16,000. INR is 1.1. Sodium 133, potassium 4.1, BUN is 14, creatinine 0.3, glucose 164 to 241. Total bilirubin 2.7, AST is 115, ALT is 59, alkaline phosphatase 309. IMAGING: Chest x-ray with improved right lower lobe atelectasis. VITALS: T-max 97.1 degrees, pulse 79, respirations 24, blood pressure 95/68, O2 saturation 99% on 2 L by nasal cannula. PHYSICAL EXAMINATION: General: No acute distress. Vitals: As above. HEENT: Normocephalic, atraumatic. Moist mucous membranes. No cervical adenopathy. Mild scleral icterus unchanged. Cardiovascular: Regular rate and rhythm. No murmurs noted. Pulmonary: Largely clear at this point, although still some upper airway noise. Extremities: Peripheral pulses intact. No clubbing or cyanosis. Neurologic: Nonpurposeful movement of all extremities. He briefly tracks with eyes to all quadrants. No clear focal deficits. Psychiatric: Remains somnolent, but arousability improving slowly. Wakes up enough to occasionally answer a yes or no question or follow a very simple command, although he does neither consistently. Skin: No new rashes or lesions identified. ASSESSMENT AND PLAN: 1. 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 He had alcohol withdrawal on admission that was contributing, appears resolved at this point. Continue to minimize sedating medications. Continue lactulose and monitor. He has had slow but significant improvement over the last few days. 2. Alcohol withdrawal, now resolved, off of benzodiazepines. 3. Human immunodeficiency virus. Patient on Atripla. Last CD4 count reportedly 69 on 03/23/2019. Continue monitoring. Infectious Disease following. 4. Pancytopenia, multifactorial, with HIV and cirrhosis. Blood counts fairly stable. White count has been up and down but somewhat improved today. Platelets down trending to a critical level today, down to 16. No bleeding, but we will go ahead and transfuse platelets as he has high risk for bleeding. 5. Likely aspiration pneumonia/pneumonitis. The patient is with poor clearing of oral secretions. Possible infiltrate on x-ray a few days ago. CT with some suggestion of bronchitis and/or pneumonitis. On antibiotics with Zosyn. There was some concern for CHF, as BNP was mildly elevated and some suggestion of edema on CT, but echocardiogram within normal limits. The patient was given 1 dose of Lasix but has not needed any further diuresis. 6. Oral candidiasis with possible esophageal involvement. The patient remains on fluconazole and nystatin as per ID. 7. Hypokalemia. Remains improved. Continue to monitor. We will replete further as needed. 8. Likely diabetes, new diagnosis for the patient. A1c was within normal limits, but likely falsely low because of liver disease. He has had consistently elevated glucoses here. Frequently up into the 200s. We will continue monitoring and continue low-dose sliding scale.
[2019-04-04] MEDS: FOLIC ACID 1 MG in NS 50 ML IV SCH (16:32)
[2019-04-04] MEDS: ATRIPLA PO SCH (20:59)
--- NOTE | 2019-04-04 23:50 | PROVIDER PROGRESS NOTE ---
Progress Note S: No acute overnight events. Afebrile. No acute changes. O: Last Vital Signs Temp 96.8 F L 04/04/19 20:00 Pulse 88 04/04/19 23:47 Resp 25 H 04/04/19 23:47 BP 111/80 04/04/19 23:47 Pulse Ox 100 04/04/19 23:47 Height 6 ft Weight 161 lb 6.4 oz GEN: lethargic, but arousable HEENT: +icterus, PERRL, NGT in place NECK: supple, no JVD CV: RRR, no murmurs PULM: coarse BS, no crackles ABD: soft NT/ND, BS present, no ascites : leal in place EXT: no cce NEURO: follows simple commands, no asterixis LABS: 04/04/19 04/04/19 04/04/19 05:00 05:30 05:30 WBC 5.12 Hgb 11.2 L Plt Count 16 L* INR 1.0 Sodium 133 L Potassium 4.1 Chloride 97 L Carbon Dioxide 26 BUN 14 Creatinine 0.3 L Glucose 176 H Total Bilirubin 2.70 H Direct Bilirubin 1.70 H AST 115 H ALT 59 H Alkaline Phosphatase 309 H Total Protein 5.8 L Albumin 2.7 L ASSESSMENT AND PLAN: Mr. Adams Chauhan is a 58-year-old gentleman with HIV/AIDS (CD4 69), h/o alcoholic pancreatitis and cirrhosis who initially presented to [facility] with alcohol withdrawal complicated by persistent encephalopathy and pancytopenia. GI following for alcoholic cirrhosis and concern for PSE. His mental status is slowly improving. He is currently on antibiotics for aspiration pneumonia vs pneumonitis and antifungal therapy for thrush/hiren esophagitis. LFTs improving. # AMS: multifactorial; neuro following; empiric lactulose & titrate for 3-4 BMs daily; hold next dose for >4 BMs in 24 hrs; cont rifaximin 550mg BID; holding sedating meds; replete lytes # Alcoholic cirrhosis: LFTs improving; INR WNL; trending LFTs daily; continue MVI, thiamine, folate # Pancytopenia: multifactorial; seen by hematology; no overt bleeding # HIV/AIDS: on Atripla per ID # Severe protein calorie malnutrition: on clinimix, TFs Will follow with you. Please call with questions
[2019-04-05] MEDS: CLINIMIX E 4.25%-5% SOLUTION 1,000 ML IV SCH ×2 (02:00→16:12)
[2019-04-05] MEDS: DUONEB (A & A) INH SCH ×4 (04:50→19:03)
[2019-04-05 05:51] LABS: BASO# 0.01 X1000 (0.0-0.2); BASO% 0.3 % (0.0-0.8); EOS# 0.03 X1000 (0.0-0.7); EOS% 0.8 % (0.0-10.0); HEMATOCRIT 32.2 % (42.0-52.0); HEMOGLOBIN 10.9 g/dL (14.0-18.0); LYMPH# 0.49 X1000 (1.2-3.4); LYMPH% 12.5 % (20.5-51.1); MCH 32.8 PG (27-31); MCHC 33.9 g/dL (33-37); MONO# 0.26 X1000 (0.11-0.59); MONO% 6.6 % (1.7-9.3); NEUT# 3.13 X1000 (1.4-6.5); NEUT% 79.8 % (42.2-75.2); RBC 3.32 XMIL (4.7-6.1); RDW 16.8 % (11.5-14.5); WBC 3.92 X1000 (4.8-10.8)
[2019-04-05 05:55] LABS: PLT 20 X1000 (130-400)
[2019-04-05] MEDS: ZOSYN 3.375 GM in NS 50 ML IV SCH ×4 (06:00→23:22)
[2019-04-05] MEDS: PROTONIX PO SCH (06:01)
[2019-04-05] MEDS: HUMALOG SUBQ SCH ×4 (06:02→21:42)
[2019-04-05 06:18] LABS: AGAP 12; ALB/GLOB RATIO 1.2; ALBUMIN 2.8 g/dL (3.5-5.0); BUN 15 mg/dL (8-22); CALCIUM 8.4 mg/dL (8.8-10.2); CHLORIDE 97 mmol/L (98-107); COSMO 273; CREATININE 0.4 mg/dL (0.7-1.2); DIRECT BILIRUBIN 1.7 mg/dL (0.00-0.20); ESTIMATED GFR > 60; GLUCOSE 165 mg/dL (70-104); POTASSIUM 5.2 mmol/L (3.5-5.1); SODIUM 134 mmol/L (136-145); TCO2 25 mmol/L (25-35); TOTAL BILIRUBIN 2.32 mg/dL (0.20-1.00); TOTAL PROTEIN 5.2 g/dL (6.3-8.3)
[2019-04-05] MEDS ORDERED: KAYEXALATE PO ONE (08:43)
[2019-04-05] MEDS: MYCOSTATIN SUSP PO SCH ×4 (08:47→21:08)
[2019-04-05] MEDS: NICODERM PATCH TD SCH (08:47)
[2019-04-05] MEDS: XIFAXAN NG SCH ×2 (08:47→21:08)
[2019-04-05] MEDS: LACTULOSE NG SCH ×2 (08:47→21:08)
[2019-04-05] MEDS: THERA M PLUS PO SCH (08:47)
--- NOTE | 2019-04-05 09:22 | INFECTIOUS DISEASE PROGRESS NO ---
DATE: 04/05/2019 PRESENT ILLNESS: The patient has the following illnesses: 1. HIV infection. 2. Oral candidiasis which may have spread to the patient's esophagus. 3. Pneumonia and bronchitis. MEDICATIONS: For the patient's HIV infection he is taking Atripla. For his oral candidiasis the patient is on IV fluconazole and for pneumonia and bronchitis the patient is on Zosyn. PHYSICAL EXAMINATION: Vital Signs: Temperature is 97.8 degrees, pulse 86, respirations 20, blood pressure 120/70. General: This is an ill-appearing, middle-aged male. He is somewhat delirious. There is no tremor. Head/eyes/ears/nose/throat: His eyes are mostly closed noted. There is no drainage from the nose or the ears. I could not really see very well in the patient's mouth. Neck: No meningismus. Lungs: Clear to auscultation. Cardiovascular: The heart rate is regular. Abdomen: It was soft and nontender. Extremities: The patient has PICC in his left arm. The site is not erythematous or swollen. Neurologic: The patient is in a delirium. He does not respond to verbal stimuli. There is no tremor. ASSESSMENT AND PLAN: Continue Atripla for the HIV infection, IV fluconazole for candidiasis, and Zosyn for pneumonia. LAB AND X-RAY: Chest x-ray shows improvement in the right lower lobe atelectasis. The CBC shows a white count of 3920, hemoglobin 10.9, and platelet count 20,000. Creatinine is 0.4, GFR is greater than 60, alkaline phosphatase is 325. COMORBIDITIES: The patient is an alcoholic and he smokes cigarettes and he has HIV infection. cc: Santi Milton MD [facility]
--- NOTE | 2019-04-05 11:54 | PROGRESS NOTE ---
DATE: 04/05/2019 Mr. Chauhan is awake, much more alert and attentive during my time at the bedside today than when I last saw him 3 days ago. Speech remains very dysarthric, difficult to understand, but I could understand some of his words. He identified this as a hospital. He did not name the hospital when asked. He followed simple commands. I do not find a focal neurologic deficit on limited bedside testing. Neck remains supple. I do not have any new suggestion from Neurology standpoint. I don't know his baseline cognitive status. Improvement in his encephalopathy is encouraging. cc: Paty Tripp III, MD MTDD
[2019-04-05] MEDS: DIFLUCAN 400 MG/NS 400 MG/200 ML IVPB IV SCH (11:55)
--- NOTE | 2019-04-05 14:51 | PROGRESS NOTE ---
DATE: 04/05/2019 INTERVAL HISTORY: Mental status about the same. Will occasionally follow very simple commands and answers yes or no questions, although was not doing either at the time of my exam this morning. No acute events overnight. REVIEW OF SYSTEMS: Unable to obtain secondary to patient's mental status. LABS: WBC 3.9, hemoglobin 10.9, hematocrit 32.2, platelets 20,000. Sodium 134, potassium 5.2, BUN 15, creatinine 0.4, glucose 168, total bilirubin 2.3, AST 174, ALT 72, alkaline phosphatase 325. VITAL SIGNS: T-max 98.6, pulse 90, respirations 24, blood pressure 119/82, O2 saturation 100% on 2 L by nasal cannula. PHYSICAL EXAMINATION: General: No acute distress. Vital signs: As above. HEENT: Normocephalic, atraumatic. Moist mucous membranes. No cervical adenopathy. Mild scleral icterus, stable. Cardiovascular: Regular rate and rhythm. No murmurs noted. Pulmonary: Largely clear at this point aside from upper airway noise. Extremities: Peripheral pulses intact. No clubbing or cyanosis. Neurologic: Still with nonpurposeful movement of all extremities. Pupils equal, round, reactive to light. Briefly tracks to all quadrants. No clear focal deficits. Psychiatric: Remains somnolent. Roughly stable from yesterday. Reportedly has been waking up enough to answer yes or no questions. Follows very simple commands, although not doing that for me this morning. He did follow commands for me yesterday. Skin: No new rashes or oral lesions identified. ASSESSMENT AND PLAN: 1. Metabolic encephalopathy, multifactorial with cirrhosis, many years of alcohol and human immunodeficiency virus. Alcohol withdrawal on admission contributing, although that appears resolved at this point. Continue to minimize sedating medications. He does seem to be improving, although very slowly. 2. Alcohol withdrawal, now resolved. Off of benzodiazepines. 3. Human immunodeficiency virus. Patient on Atripla. Last CD4 count reportedly 69 the 16th of this month. Continue monitoring. ID following. 4. Pancytopenia, multifactorial, human immunodeficiency virus and cirrhosis. Blood counts fairly stable and white count okay but platelets continue to be an issue. Transfused yesterday with a little improvement. Will transfuse platelets further and monitor very closely for signs of bleeding. 5. Likely aspiration pneumonia/pneumonitis. Patient with ongoing poor clearing of oral secretions. Possible infiltrate on x-ray a few days ago. CT suggesting bronchitis and/or pneumonitis. On antibiotics with Zosyn. At one point there was concern for CHF as BNP was mildly elevated and some suggestion of edema on CT but echocardiogram was within normal limits. Patient received one dose of Lasix but has not needed further diuresis. 6. Oral candidiasis with possible esophageal involvement. Patient still on fluconazole and nystatin as per Infectious Disease. 7. Hypokalemia. Potassium actually now high. Will give a dose of Kayexalate and monitor. 8. Diabetes, new diagnosis for the patient. A1c was within normal limits but likely possibly low because of liver disease. He has had consistently elevated glucoses here, frequently up in to the 200s but now better controlled with sliding scale.
--- NOTE | 2019-04-05 17:14 | GASTROENTEROLOGY PROGRESS NOTE ---
DATE: 04/05/2019 SUBJECTIVE: Resting in bed. He is more awake today. He answers some of my questions. He denies any abdominal pain. He denies any nausea or vomiting. According to the records, he has been on NG tube feeding. His residuals are close to 75 mL. He is having liquid brown stools. OBJECTIVE: Vital Signs: Temperature 96.5 degrees, pulse rate of 88, respiratory rate of 23, blood pressure 120/70, saturating 100% ventimask and is now weaned down to 2 L nasal cannula. Body weight: 161 pounds 8 ounces, BMI 21.9 kg/m2. General Appearance: Thinly built, lying in bed, in no acute distress. HEENT: Pale conjunctiva. Mild icterus. NG tube in place. Neck: Supple. Abdomen: Soft, nondistended. No guarding. No rebound. Extremities: No cyanosis, clubbing. Genitourinary/Rectal: He has a rectal tube with the Roche catheter. Neurological: He was awake and answers some questions. DIAGNOSTIC STUDIES: Hemoglobin 10.9, hematocrit 32.2, white count 3.92, platelet count 20,000. Sodium 134, potassium 5.2, chloride 97, bicarbonate 25, anion gap 12, BUN 15, creatinine 0.4, glucose 165, calcium 8.4. Magnesium 2.0. Total bilirubin 2.32, AST 174, ALT 72, alkaline phosphatase 325, total protein 5.2, albumin of 2.8, direct bilirubin 1.7. Blood culture x2 negative after 5 days. He has received 3 units of platelets. Chest x-ray done today showed improved right lower lobe atelectasis. IMPRESSION AND PLAN: 1. Altered mental status. This is being followed by Neurology. He is on empiric lactulose. Continue to maintain 3 to 4 bowel movements daily. He is also on Xifaxan 550 mg p.o. b.i.d. Continue to follow the electrolytes and replete as needed per the primary are team. 2. Pancytopenia. Hematology is following. He has received 3 units of platelets during this hospital stay. Dr. Caron Gibson is following. 3. Human immunodeficiency virus/acquired immunodeficiency syndrome (HIV/AIDS). He is on Atripla per Dr. Milton. 4. Severe protein-calorie malnutrition. He is on tube feeds and Clinimix. 5. Alcoholic cirrhosis. Continue to follow the liver enzymes. His INR is within normal range. We will continue multivitamin, folate, and thiamine. 6. History of alcoholic pancreatitis. Aware. 7. Possible aspiration pneumonia. He is on antibiotics. 8. He has oral thrush for which he is being treated with antifungal therapy. The above plans were discussed with the patient, and all questions were answered. Please call us with any further questions. cc: MD Willis Bradford MD
[2019-04-05] MEDS: FOLIC ACID 1 MG in NS 50 ML IV SCH (17:48)
[2019-04-05] MEDS: ATRIPLA PO SCH (21:08)
[2019-04-06] MEDS: DUONEB (A & A) INH SCH ×6 (00:27→22:03)
[2019-04-06] MEDS: ZOSYN 3.375 GM in NS 50 ML IV SCH ×3 (06:30→18:50)
[2019-04-06] MEDS: HUMALOG SUBQ SCH ×3 (06:31→16:50)
[2019-04-06] MEDS: CLINIMIX E 4.25%-5% SOLUTION 1,000 ML IV SCH (06:36)
[2019-04-06] MEDS: PROTONIX PO SCH (06:40)
--- NOTE | 2019-04-06 07:47 | Diag Imaging Result Doc PS360 ---
EXAM: CHEST-PORTABLE INDICATION: NG tube placement TECHNIQUE: 2 views COMPARISON: 04/04/2019 FINDINGS: The newly placed NG tube tip projects over the region of the GE junction and may actually be in the distal esophagus. Advancement of the tube by 6 to 7 cm is suggested. The lung bases are overexposed due to focus on the NG tube. Given the overexposure, they are approximately stable. IMPRESSION: NG tube tip projecting over the region of the GE junction. Advancement of the tube is suggested. Electronically signed by Saul Flores 04/06/2019 7:45 AM
--- NOTE | 2019-04-06 08:23 | Diag Imaging Result Doc PS360 ---
EXAM: CHEST/ABD TUBE PLACEMENT INDICATION: NG tube placement verification TECHNIQUE: One view COMPARISON: 04/06/2019 FINDINGS: The NG tube has been advanced. The tip now projects well below the diaphragm and is assumed to be in the lumen of the stomach in expected position. Limited views of the lung bases are stable. IMPRESSION: Interval advancement of the NG tube, which now appears to be well below the diaphragm in the expected position. Electronically signed by Saul Flores 04/06/2019 8:21 AM
[2019-04-06] MEDS: LACTULOSE NG SCH ×2 (10:19→22:59)
[2019-04-06] MEDS: XIFAXAN NG SCH ×2 (10:19→23:01)
[2019-04-06] MEDS: NICODERM PATCH TD SCH (10:19)
[2019-04-06] MEDS: THERA M PLUS PO SCH (10:19)
[2019-04-06] MEDS: MYCOSTATIN SUSP PO SCH ×4 (10:19→23:02)
--- NOTE | 2019-04-06 10:23 | PROGRESS NOTE ---
DATE: 04/06/2019 INTERVAL HISTORY: His NG tube was advanced and repeat abdominal x-ray suggests appropriate position of his NG tube. SUBJECTIVE: He is drowsy, but arousable. He answers simple questions. He could remember his name, his sister's name. However, he is not attentive enough and lapses back into sleep. He states he does not want to eat. It appears he has a lot of secretion in his mouth. VITAL SIGNS: He has been afebrile. Temperature of 97.5 degrees, pulse of 93, respiratory rate 23, blood pressure 150/80. He is saturating 100% on 2 L nasal cannula. PHYSICAL EXAMINATION: General: Chronically ill-appearing, not in any acute distress. He has a lot of secretions which I could appreciate while he speaks. Heart: His S1, S2 is normal. No murmur or gallop. Lungs: Air entry bilaterally equal. No wheeze, rhonchi, or crackles. Abdomen: Obese, soft, nontender. Hypoactive bowel sounds. Extremities: No lower extremity edema. /rectal: He has a urine catheter. He has a rectal tube. He also has a bilateral mittens. His NG tube has bloody output. LABS AND X-RAYS: He does not have CBC or BMP which has been ordered. No new imaging. ASSESSMENT AND PLAN: 1. Acute metabolic encephalopathy in the setting of liver cirrhosis with suspicion of a component of hepatic encephalopathy, alcohol use disorder with abuse and alcohol withdrawal on admission, and now likely hospital-acquired delirium. Continue to re-direct, re-orient and reassure. We will avoid sedating medications as necessary. 2. Pancytopenia, multifactorial because of cirrhosis. Human immunodeficiency virus infection and noncompliance with human immunodeficiency virus medications. He is status post 5 units of platelet transfusion. I will follow up with the platelet count and accordingly transfuse to keep platelet count more than 10,000. 3. Alcohol use disorder with abuse and withdrawal on admission, now resolved. Continue intravenous benzodiazepine as needed, folic acid, multivitamin, lactulose and rifaximin for 3 to 4 bowel movements to prevent or treat hepatic encephalopathy. 4. Bilateral lower lobe infiltrate with pneumonia and bronchitis. Continue intravenous Zosyn; day 1 is March 31. I will appreciate Infectious Disease recommendation about giving him antibiotic break after today. 5. Dysphagia, poor oral intake and malnutrition. Continue intravenous Clinimix, intravenous fluconazole for suspected esophageal candidiasis. I will also have speech therapy evaluation and physical therapy. DISPOSITION: I will continue to monitor patient in [facility]. Plan of care discussed with nursing team. I will keep patient's family in the loop. cc: Spencer Robins MD MTDVal
[2019-04-06 10:29] LABS: BASO# 0.01 X1000 (0.0-0.2); BASO% 0.2 % (0.0-0.8); EOS# 0.02 X1000 (0.0-0.7); EOS% 0.4 % (0.0-10.0); HEMATOCRIT 30.7 % (42.0-52.0); HEMOGLOBIN 10.2 g/dL (14.0-18.0); IMM GRAN# 0.02 X1000 (0.0-0.04); IMM GRAN% 0.4 % (0.0-0.5); LYMPH# 0.72 X1000 (1.2-3.4); LYMPH% 13.7 % (20.5-51.1); MCH 32.9 PG (27-31); MCHC 33.2 g/dL (33-37); MONO# 0.35 X1000 (0.11-0.59); MONO% 6.7 % (1.7-9.3); NEUT# 4.12 X1000 (1.4-6.5); NEUT% 78.6 % (42.2-75.2); PLT 39 X1000 (130-400); RDW 17.1 % (11.5-14.5); WBC 5.24 X1000 (4.8-10.8)
--- NOTE | 2019-04-06 11:08 | INFECTIOUS DISEASE PROGRESS NO ---
DATE: 04/06/2019 PRESENT ILLNESS: The patient has the following infections: HIV infection, oral candidiasis with possible involvement of the esophagus, pneumonia, and bronchitis. MEDICATIONS: The patient takes Atripla for his HIV infection. He is on fluconazole for his oral candidiasis, which may have spread to the esophagus, and finally, the patient is on Zosyn to treat his pneumonia and bronchitis. PHYSICAL EXAMINATION: Vital Signs: Temperature is 98.2 degrees, pulse 97, respirations 17, blood pressure 151/84. General: This is an ill-appearing, middle-aged male. He seems a little more alert today. Head/eyes/ears/nose/throat: He hears my spoken words. He appears to see near objects. Most of the white coating of his tongue has cleared. The patient has an NG tube down. Neck: No obvious pain when he moves his neck. Lungs: Clear to auscultation. Cardiovascular: Heart rate is regular. Abdomen: Soft and nontender. Extremities: The patient has a PICC in his left arm. The site is not erythematous or draining. Neurologic: The patient is lethargic. He did follow request to move his extremities. And he did carry on a conversation in a coherent fashion. LAB AND RADIOLOGY: CBC-WBC 5.24, hemoglobin 10.2, platelets 39K. Chest x-ray-no mention of lungs or heart. ASSESSMENT AND PLAN: I plan to continue Atripla, nystatin swish and swallow, fluconazole, and Zosyn for the patient's HIV infection, oral candidiasis with possible spread to the esophagus and pneumonia and bronchitis, respectively. COMORBIDITIES: He is an alcoholic. He smokes cigarettes, and he has HIV infection. cc: Santi Milton MD [facility]
[2019-04-06] MEDS: DIFLUCAN 400 MG/NS 400 MG/200 ML IVPB IV SCH (11:45)
[2019-04-06 12:15] LABS: AGAP 12; BUN 12 mg/dL (8-22); CALCIUM 8.7 mg/dL (8.8-10.2); CHLORIDE 94 mmol/L (98-107); COSMO 264; CREATININE 0.4 mg/dL (0.7-1.2); ESTIMATED GFR > 60; GLUCOSE 164 mg/dL (70-104); POTASSIUM 4.2 mmol/L (3.5-5.1); SODIUM 130 mmol/L (136-145); TCO2 24 mmol/L (25-35)
--- NOTE | 2019-04-06 13:23 | PROGRESS NOTE ---
DATE: 04/06/2019 Mr. Chauhan continues to show some improvement in his alertness and attention day by day. He had some appropriate conversation with me, which was more easily understood and more spontaneous than yesterday. There is no focal motor deficit on limited bedside testing. Neck continues without meningismus. His encephalopathy seems to be improving. I do not have any new suggestion from Neurology standpoint. Thanks for asking us to see Mr. Chauhan. cc: MD BASIA Putnam III
[2019-04-06] MEDS: FOLIC ACID 1 MG in NS 50 ML IV SCH (16:50)
[2019-04-06] MEDS: ATIVAN IV PRN (22:44)
[2019-04-06] MEDS: ATRIPLA PO SCH (22:59)
--- NOTE | 2019-04-06 23:42 | PROVIDER PROGRESS NOTE ---
Progress Note S: Patient reports some abdominal pain. No N/V/F, CP, SOB. O: Last Vital Signs Temp 98.2 F 04/06/19 20:00 Pulse 96 H 04/06/19 22:05 Resp 22 04/06/19 22:05 BP 150/90 04/06/19 20:00 Pulse Ox 98 04/06/19 22:05 Height 6 ft Weight 162 lb 4.8 oz GEN: awake, AAOx1; he says he is in [place] HEENT: +icterus, PERRL, NGT in place NECK: supple, no JVD CV: RRR, no murmurs PULM: coarse BS, no crackles ABD: soft NT/ND, BS present, no ascites : leal in place EXT: no cce NEURO: follows simple commands, no asterixis LABS: 04/06/19 04/06/19 09:50 09:50 WBC 5.24 Hgb 10.2 L Plt Count 39 L* D Sodium Cancelled Potassium Cancelled Chloride Cancelled Carbon Dioxide Cancelled BUN Cancelled Creatinine Cancelled Glucose Cancelled ASSESSMENT AND PLAN: Mr. Adams Chauhan is a 58-year-old gentleman with HIV/AIDS (CD4 69), h/o alcoholic pancreatitis and cirrhosis who initially presented to [facility] with alcohol withdrawal complicated by encephalopathy and pancytopenia. GI following for alcoholic cirrhosis and concern for PSE. His mental status is slowly improving. He is currently on antibiotics for aspiration pneumonia vs pneumonitis and antifungal therapy for thrush/hiren esophagitis. LFTs improving. # AMS: multifactorial; neuro following; empiric lactulose & titrate for 3-4 BMs daily; hold next dose for >4 BMs in 24 hrs; cont rifaximin 550mg BID; holding sedating meds; replete lytes # Alcoholic cirrhosis: LFTs improving; INR WNL; trending LFTs daily; continue MVI, thiamine, folate # Pancytopenia: multifactorial; seen by hematology; no overt bleeding # HIV/AIDS: on Atripla and abx per ID # Severe protein calorie malnutrition: on clinimix, TFs Will follow with you. Please call with questions
[2019-04-07] MEDS: ZOSYN 3.375 GM in NS 50 ML IV SCH ×4 (01:07→20:55)
[2019-04-07] MEDS: CLINIMIX E 4.25%-5% SOLUTION 1,000 ML IV SCH ×2 (01:07→12:17)
[2019-04-07] MEDS: ATIVAN IV PRN (01:10)
[2019-04-07] MEDS: DUONEB (A & A) INH PRN (01:24)
[2019-04-07] MEDS: DUONEB (A & A) INH SCH ×4 (03:34→23:43)
[2019-04-07 06:44] LABS: BASO# 0.02 X1000 (0.0-0.2); BASO% 0.4 % (0.0-0.8); EOS# 0.05 X1000 (0.0-0.7); EOS% 0.9 % (0.0-10.0); HEMOGLOBIN 10.4 g/dL (14.0-18.0); IMM GRAN# 0.02 X1000 (0.0-0.04); IMM GRAN% 0.4 % (0.0-0.5); LYMPH% 10.8 % (20.5-51.1); MCHC 33.5 g/dL (33-37); MCV 98.4 FL (81-99); MONO# 0.44 X1000 (0.11-0.59); MONO% 7.9 % (1.7-9.3); NEUT# 4.44 X1000 (1.4-6.5); NEUT% 79.6 % (42.2-75.2); RBC 3.15 XMIL (4.7-6.1); RDW 17.3 % (11.5-14.5); WBC 5.57 X1000 (4.8-10.8)
[2019-04-07 06:45] LABS: PLT 37 X1000 (130-400)
[2019-04-07 06:51] LABS: AGAP 9; ALB/GLOB RATIO 0.9; ALBUMIN 2.7 g/dL (3.5-5.0); ALKALINE PHOSPHATASE 367 U/L (32-122); BUN 12 mg/dL (8-22); CALCIUM 8.3 mg/dL (8.8-10.2); CHLORIDE 95 mmol/L (98-107); COSMO 265; CREATININE 0.3 mg/dL (0.7-1.2); ESTIMATED GFR > 60; GLUCOSE 136 mg/dL (70-104); GOT 144 U/L (10-34); GPT 65 U/L (10-44); MAGNESIUM 1.9 mg/dL (1.5-2.7); PHOSPHORUS 2.8 mg/dL (2.7-4.5); POTASSIUM 4.5 mmol/L (3.5-5.1); SODIUM 131 mmol/L (136-145); TCO2 27 mmol/L (25-35); TOTAL PROTEIN 5.7 g/dL (6.3-8.3)
[2019-04-07] MEDS: PROTONIX PO SCH (06:52)
[2019-04-07] MEDS: HUMALOG SUBQ SCH ×4 (06:52→21:48)
--- NOTE | 2019-04-07 11:58 | INFECTIOUS DISEASE PROGRESS NO ---
DATE: 04/07/2019 PRESENT ILLNESS: The patient has following infections: HIV infection, oral candidiasis with possible involvement of the esophagus, pneumonia, and bronchitis. MEDICATIONS: The patient takes Atripla for his HIV infection. The patient is on IV fluconazole and oral nystatin for his oral candidiasis, which may involve the esophagus. The patient is on his 7th day of treatment with Zosyn for the patient's pneumonia and bronchitis. OBJECTIVE: Vital Signs: Temperature is 98.8 degrees, pulse 98, respirations 17, blood pressure 125/71. General: This is a lethargic, ill-appearing middle-aged male. He is not arousable today. Head, Eyes, Ears, Nose And Throat: No drainage noted from the nose or ears. Neck: No pain with passive movement of the neck. Lungs: Clear to auscultation. Cardiovascular: Heart rate is regular. Abdomen: Soft and nontender. Extremities: The patient has a PICC in the left arm. The site is not erythematous or draining. Neurologic: As mentioned above, the patient is obtunded. There is no tremor. He did not respond to verbal stimuli. LAB AND X-RAY STUDIES: I have just ordered an x-ray for today. The CBC shows a white count of 5570, hemoglobin 10.4, and platelet count is 37,000. Creatinine is 0.3. GFR is greater than 60, alkaline phosphatase 367. The patient's absolute neutrophil count is 4440. ASSESSMENT AND PLAN: I plan to continue Atripla for his HIV infection. I think for now the fluconazole and nystatin can be discontinued and I am planning on continuing Zosyn pending the results of the patient's chest x-ray. COMORBIDITIES: The patient is an alcoholic. He also smokes cigarettes and he has an HIV infection. cc: Santi Milton MD
--- NOTE | 2019-04-07 12:07 | Diag Imaging Result Doc PS360 ---
EXAM: CHEST-1 VIEW HISTORY: pneumonia TECHNIQUE: Chest single view COMPARISON: 04/04/2019 FINDINGS: Slightly improved inspiratory effort. No change in the left-sided PICC line. The nasogastric tube has been removed. Mild increased interstitial markings most pronounced in the lower right lung. No pleural effusions identified. IMPRESSION: Slight interval improvement Electronically signed by Alan Hernandez 04/07/2019 12:05 PM
[2019-04-07] MEDS: NICODERM PATCH TD SCH (12:12)
[2019-04-07] MEDS: DIFLUCAN 400 MG/NS 400 MG/200 ML IVPB IV SCH (12:13)
[2019-04-07] MEDS: LACTULOSE NG SCH ×2 (12:14→21:48)
[2019-04-07] MEDS: MYCOSTATIN SUSP PO SCH (12:15)
[2019-04-07] MEDS: XIFAXAN NG SCH ×2 (12:15→21:48)
[2019-04-07] MEDS: THERA M PLUS PO SCH (12:15)
--- NOTE | 2019-04-07 15:04 | PROGRESS NOTE ---
DATE: 04/07/2019 INTERVAL HISTORY: He had pulled out his NG tube overnight, so a repeat NG tube was not placed. He failed his swallow evaluation because of secretions in his mouth and poor cough reflex. SUBJECTIVE: He is more awake today at the time of my evaluation. He states that he remembers my last name. He states he lives in [place] with 3 or 4 individuals. He denies any pain while swallowing. However, his history is inconsistent. VITALS: Temperature 98.6 degrees, pulse 99, respiratory rate 18, blood pressure 110/69, saturating 100% 2 L nasal cannula. PHYSICAL EXAMINATION: Not in any acute distress. Mild conjunctival pallor. He does have significant secretions inside what appears to be behind his pharynx, probably in esophagus or larynx. Otherwise oral cavity is very dry. Air entry bilaterally equal. No wheeze or crackles. S1, S2 normal, no rub or gallop.Abdomen: Obese, soft, nontender. Active bowel sounds. Extremities: No lower extremity edema. He does not have any rectal tube. LABS: Suggestive of improving WBC count, normal hemoglobin. Continuous thrombocytopenia. Normal electrolytes. Largely improving liver function test. Microbiology, no new data. IMAGING: Chest x-ray today morning suggests slight interval improvement. ASSESSMENT AND PLAN: 1. Acute protracted encephalopathy, likely metabolic with a combination of liver cirrhosis, component of hepatic encephalopathy, alcohol withdrawal and prolonged delirium tremens, hospital-acquired delirium. I will stop his lorazepam, give him haloperidol as needed. 2. Pancytopenia, now improving. His thrombocytopenia is likely because of HIV, fatty liver, and liver cirrhosis because of alcohol use. He is status post 5 units of platelet transfusion. Currently, no signs of active bleeding. 3. Dysphagia and poor nutrition with inability to swallow oral secretions. I will give him break from nasogastric tube for 24 hours. We will again get a swallow evaluation tomorrow morning if he is strong enough. Based on that, I will consider either starting oral diet versus reinserting nasogastric tube. Continue intravenous Clinimix until then. In future, based on his platelet count, I would also consider discussing with Gastroenterology about need for endoscopy to evaluate for any esophageal ulceration. Considering his advanced HIV, he is status post at least 7 days of intravenous fluconazole which should help esophageal candidiasis to some extent at least. 4. Others: Continue folic acid multivitamin, lactulose, rifaximin for his alcohol abuse and cirrhosis once we reinsert his nasogastric tube. 5. Bilateral lower lobe infiltrate with pneumonia and bronchitis. I will stop intravenous Zosyn. He has received it for March 31 to April 07. Intravenous fluconazole and nystatin have also been stopped. 6. Disposition: I will continue to monitor patient on routine medical floor. Plan of care discussed with him. I will get in touch with the patient's sister and inform about care as well. The patient's code status is DNR level 1 as it was documented previously by the physician. cc: Spencer Robins MD
[2019-04-07] MEDS: FOLIC ACID 1 MG in NS 50 ML IV SCH (18:04)
[2019-04-07] MEDS: ATRIPLA PO SCH ×2 (21:47→21:48)
--- NOTE | 2019-04-07 23:44 | PROVIDER PROGRESS NOTE ---
Progress Note S: No acute overnight events. Afebrile. O: Last Vital Signs Temp 98.1 F 04/08/19 00:00 Pulse 87 04/08/19 00:00 Resp 22 04/08/19 00:00 BP 116/74 04/08/19 00:00 Pulse Ox 100 04/08/19 00:00 Height 6 ft Weight 173 lb 14.4 oz GEN: awake, AAOx1; NAD HEENT: +icterus, PERRL, NGT in place NECK: supple, no JVD CV: RRR, no murmurs PULM: coarse BS, no crackles ABD: soft NT/ND, BS present, no ascites : leal in place EXT: no cce NEURO: follows simple commands, no asterixis LABS: 04/07/19 04/07/19 05:40 05:40 WBC 5.57 Hgb 10.4 L Plt Count 37 L* Sodium 131 L Potassium 4.5 Chloride 95 L Carbon Dioxide 27 BUN 12 Creatinine 0.3 L Glucose 136 H Total Bilirubin 1.90 H AST 144 H ALT 65 H Alkaline Phosphatase 367 H Total Protein 5.7 L Albumin 2.7 L ASSESSMENT AND PLAN: Mr. Adams Chauhan is a 58-year-old gentleman with HIV/AIDS (CD4 69), h/o alcoholic pancreatitis and cirrhosis who initially presented to [facility] with alcohol withdrawal complicated by encephalopathy and pancytopenia. GI following for alcoholic cirrhosis and concern for PSE. His mental status is slowly improving. LFTs stable # AMS: multifactorial; neuro following; empiric lactulose & titrate for 3-4 BMs daily; hold next dose for >4 BMs in 24 hrs; cont rifaximin 550mg BID; holding sedating meds; replete lytes # Alcoholic cirrhosis: LFTs stable; INR WNL; trending LFTs daily; continue MVI, thiamine, folate # Pancytopenia: multifactorial; seen by hematology; no overt bleeding # HIV/AIDS: on Atripla and abx per ID # Severe protein calorie malnutrition: on clinimix, TFs Will follow with you. Please call with questions
[2019-04-08] MEDS: DUONEB (A & A) INH SCH ×4 (03:35→22:00)
[2019-04-08] MEDS: ZOSYN 3.375 GM in NS 50 ML IV SCH ×2 (03:47→09:52)
[2019-04-08] MEDS: CLINIMIX E 4.25%-5% SOLUTION 1,000 ML IV SCH ×2 (03:48→14:54)
[2019-04-08] MEDS: HALDOL IV PRN (05:07)
[2019-04-08] MEDS: PROTONIX PO SCH (06:23)
[2019-04-08] MEDS: HUMALOG SUBQ SCH ×4 (06:47→22:25)
[2019-04-08] MEDS: THERA M PLUS PO SCH (09:51)
[2019-04-08] MEDS: XIFAXAN NG SCH ×2 (09:51→22:11)
[2019-04-08] MEDS: LACTULOSE NG SCH ×2 (09:51→22:11)
--- NOTE | 2019-04-08 10:29 | PROGRESS NOTE ---
DATE: 04/08/2019 LOCATION: Room 405. Mr. Chauhan is more alert and much more spontaneous with conversation with me today. His speech continues very dysarthric, but is a little bit more understandable today. He reports no headache. He does not have any specific complaint. I do not have any new suggestion from neurology standpoint today. cc: Paty Tripp III, MD MTDD
--- NOTE | 2019-04-08 14:44 | PROGRESS NOTE ---
DATE: 04/08/2019 INTERVAL HISTORY: No acute events. He has not had NG tube. There is documented 1 bowel movement today and in the afternoon time. The patient is drowsy but arousable to strong verbal stimuli. He does have a really good cough reflex today. VITALS: Currently, temperature 98.7 degrees, pulse 89, respiratory 20 blood pressure 104/68 saturating 98% on 3 L nasal cannula. The patient states that he does not want NG tube because it causes him to have pain. He wants to eat, but he does not know about the swallow evaluation. Considering his thrombocytopenia, he is not a candidate for PEG tube at the moment. PHYSICAL EXAMINATION: Air entry bilaterally equal. No wheeze or crackles. S1 normal. No murmur or gallop.Abdomen: Obese, soft, and nontender. Extremity: No lower extremity edema. He has urine catheter. He is arousable to strong verbal stimuli. He states he only came to the hospital because his mind was not working. He is able to remember me and my name. LABORATORY: No CBC or BMP today. No new microbiological data. ASSESSMENT AND PLAN: 1. Acute protracted encephalopathy due to liver cirrhosis, a component of hepatic encephalopathy, alcohol withdrawal, and prolonged delirium tremens, and hospital-acquired delirium. Continue haloperidol as needed and quetiapine at nighttime as needed. 2. Pancytopenia with marked thrombocytopenia because of HIV, fatty liver, liver cirrhosis and alcohol abuse, status post 5 units of platelet transfusion. No signs of active bleeding. Follow up platelet count tomorrow. I will await Dr. Yoan grimaldo about EBV DNA. 3. Dysphagia and poor nutrition with inability to swallow oral secretion. His cough sounds stronger today than on previous examination. I will request repeat speech evaluation today. I will continue intravenous Clinimix. The patient refuses to get the nasogastric tube and considering thrombocytopenia, not a candidate of PEG tube at the moment. He is status post intravenous 7 days of fluconazole for suspected oral candidal or esophageal candidiasis. 4. Bilateral lower lobe pneumonia, status post 7 days of intravenous Zosyn stopped on 04/07. 5. Others: Continue folic acid multivitamin for chronic anemia. I will initiate lactulose through rectal enema tomorrow if he is not able to pass swallow evaluation. 6. Disposition: Continue to monitor patient on medical floor. I called patient's sister, and informed her about patient's clinical course and long-term poor prognosis if he does not stop alcohol intake or take his HIV medication. She understood it. His current code status is DNR level 1. cc: Spencer Robins MD MTDVal
--- NOTE | 2019-04-08 15:10 | INFECTIOUS DISEASE PROGRESS NO ---
DATE: 04/08/2019 PRESENT ILLNESS: The patient has HIV infection, oral candidiasis, pneumonia, and bronchitis. MEDICATIONS: The patient takes Atripla for his HIV infection. The patient is on IV fluconazole and oral nystatin for his oral candidiasis and possible esophagus involvement. This is day 8 of treatment with Zosyn for the patient's pneumonia and bronchitis. PHYSICAL EXAMINATION: Vital Signs: Temperature is 98.4 degrees, pulse 93, respirations 20, blood pressure 107/71. General: This is a lethargic and chronically ill-appearing, middle-aged male. He is in no acute distress. He is more alert today. He is able to answer questions. Head, Eyes, Ears, Nose, and Throat: He does not have any white patches in his mouth. He appeared to be able to hear my spoken words and see near objects. Neck: No pain with neck movement. Lungs: Clear to auscultation. Cardiovascular: Heart rate is regular. Abdomen: Soft and nontender. Extremities: The patient has a PICC in the left arm. The site is not erythematous or draining. Neurologic: As mentioned above, the patient is more alert today. He even talked, although I could not quite understand what he was saying. He did follow requests to move his extremities. LAB AND X-RAY: Chest x-ray shows improvement. There is no definite infiltrate. There is some, still, atelectatic changes and interstitial changes. The patient's CBC shows a white count of 5570, hemoglobin 10.4, and platelet count 37,000. Creatinine is 0.3. GFR is greater than 60. The alkaline phosphatase is 367. ASSESSMENT AND PLAN: I plan to continue Atripla for the patient's human immunodeficiency virus infection. I think the patient's pneumonia and bronchitis have cleared, and I am going to discontinue Zosyn. The patient's oral candidiasis has cleared up and, most likely, the esophagus is not involved, and it may never have been involved but if it were, the fluconazole most likely has cleared that infection as well. I am going to stop the patient's intravenous fluconazole and oral Mycostatin. The patient's human immunodeficiency virus infection is managed by a physician who the patient will return to continue his treatment. COMORBIDITIES: The patient is an alcoholic. He smokes cigarettes. I am signing off the patient's case but I am available to see him on a p.r.n. basis. cc: Santi Milton MD
--- NOTE | 2019-04-08 16:48 | GASTROENTEROLOGY PROGRESS NOTE ---
DATE: 04/08/2019 SUBJECTIVE: Patient is resting in bed. He wakes up to oral commands. He tries to speak though it is very hard to understand. He still appears to be drowsy. Patient was reported to have a high aspiration risk per the swallow evaluation. I spoke to Dr. Robins about possible intervention in the form of EGD or EGD with PEG tube placement but since the patient is pancytopenic, the procedure is very high risk. OBJECTIVE: Vital signs: Temperature 98.4, pulse rate of 93, respiratory rate 20, blood pressure 107/71, saturating on 3 L nasal cannula. Body weight of 171 pounds 9.6 ounces, BMI 23.3 kg/m2. General Appearance: Thinly built, lying in bed, in no acute distress. HEENT: Pale conjunctiva. Mild icterus. Nasal cannula in place. Neck: Supple. Abdomen: Soft, nondistended. No guarding. Extremities: No cyanosis, clubbing. Neurologic: He is drowsy. He was able to wake up on command. Tried to answer some questions, though hard to understand. LABS: Hemoglobin and hematocrit are 10.4 and 31, white count of 5.57, platelet count of 37,000. Sodium of 131, potassium 4.5, chloride 95, bicarb 27, anion gap 9, BUN of 12, creatinine 0.3, glucose of 136, calcium is 8.3, phosphorus 2.8, magnesium 1.9. Total bilirubin is 1.9, AST 144, ALT 65, alkaline phosphatase is 367, total protein is 5.7, albumin of 2.7. Blood cultures negative after 5 days from 03/27/2019. Chest x-ray was done on 04/07 and showed slight interval improvement, slightly improved inspiratory effort. No change in the left-sided PICC line. The nasogastric tube has been removed. Mild increased interstitial markings, most pronounced in the lower right lung. IMPRESSION AND PLAN: 1. Altered mental status. Neurology is following. Continue on lactulose and titrate to 3 to 4 bowel in 24 hours. He is continuing on Xifaxan 550 mg p.o. b.i.d. Continue to follow electrolytes and replete them as needed. 2. Pancytopenia. Hematology is on board. His platelets are low but they are improving. 3. Human immunodeficiency virus/acquired immunodeficiency syndrome. He is on Atripla and antibiotics per Dr. Milton. 4. Severe protein calorie malnutrition. He is on Clinimix. His NG tube was removed. The patient may need a repeat NG tube insertion on TPN as he has a high aspiration risk. We have discussed the options of doing EGD or EGD with PEG tube placement but the patient is a high risk for any kind of surgical intervention because of thrombocytopenia. 5. Alcoholic cirrhosis. Continue to follow the liver enzymes and INR. Continue multivitamin, thiamine, and folate. 6. History of alcoholic pancreatitis. Aware. 7. Hepatic encephalopathy. He is on lactulose and Xifaxan. His hepatitis panel was nonreactive but his EBV DNA was 165 IU/mL. This needs to be addressed per Dr. Milton. CMV DNA was undetected on the workup. The above plan was discussed with the patient and the nursing staff. All questions were answered to the nursing staff. Please call us with any further questions. cc: MD Caron Gordon MD Dr. Patel MTDD
[2019-04-08] MEDS: FOLIC ACID 1 MG in NS 50 ML IV SCH (17:12)
[2019-04-08] MEDS: ATRIPLA PO SCH (22:12)
[2019-04-09] MEDS: DUONEB (A & A) INH SCH ×3 (03:35→15:39)
[2019-04-09] MEDS: CLINIMIX E 4.25%-5% SOLUTION 1,000 ML IV SCH (05:10)
[2019-04-09] MEDS: PROTONIX PO SCH (06:20)
[2019-04-09 06:35] LABS: AGAP 10; ALB/GLOB RATIO 0.9; ALBUMIN 2.8 g/dL (3.5-5.0); ALKALINE PHOSPHATASE 527 U/L (32-122); BUN 15 mg/dL (8-22); CALCIUM 8.7 mg/dL (8.8-10.2); CHLORIDE 97 mmol/L (98-107); COSMO 272; CREATININE 0.5 mg/dL (0.7-1.2); ESTIMATED GFR > 60; GLUCOSE 148 mg/dL (70-104); GOT 132 U/L (10-34); GPT 61 U/L (10-44); POTASSIUM 4.5 mmol/L (3.5-5.1); SODIUM 134 mmol/L (136-145); TCO2 27 mmol/L (25-35); TOTAL BILIRUBIN 2.35 mg/dL (0.20-1.00); TOTAL PROTEIN 5.9 g/dL (6.3-8.3)
[2019-04-09 06:40] LABS: BASO# 0.01 X1000 (0.0-0.2); BASO% 0.2 % (0.0-0.8); EOS# 0.04 X1000 (0.0-0.7); EOS% 0.7 % (0.0-10.0); HEMATOCRIT 31.3 % (42.0-52.0); HEMOGLOBIN 10.3 g/dL (14.0-18.0); LYMPH# 0.66 X1000 (1.2-3.4); LYMPH% 11.1 % (20.5-51.1); MCH 32.6 PG (27-31); MCHC 32.9 g/dL (33-37); MCV 99.1 FL (81-99); MONO# 0.69 X1000 (0.11-0.59); MONO% 11.6 % (1.7-9.3); NEUT# 4.55 X1000 (1.4-6.5); NEUT% 76.4 % (42.2-75.2); PLT 65 X1000 (130-400); RBC 3.16 XMIL (4.7-6.1); RDW 16.6 % (11.5-14.5); WBC 5.95 X1000 (4.8-10.8)
[2019-04-09] MEDS: HUMALOG SUBQ SCH ×2 (07:28→10:45)
[2019-04-09] MEDS: LACTULOSE NG SCH (10:23)
[2019-04-09] MEDS: XIFAXAN PO SCH ×2 (10:46→22:00)
[2019-04-09] MEDS: THERA M PLUS PO SCH (10:46)
[2019-04-09] MEDS: VITAMIN B-1 PO SCH (17:36)
--- NOTE | 2019-04-09 19:41 | PROGRESS NOTE ---
DATE: 04/09/2019 INTERVAL HISTORY: No acute events overnight. He has been eating well. Today, he is much more awake and alert than yesterday. He states he was able to walk in the hallway with the help of physical therapy. He is feeling stronger. We discussed about alcohol cessation and I answered all of his questions. VITALS: Temperature 99.2 degrees, pulse 95, respiratory rate 20, blood pressure 125/76, saturating 97% on room air. PHYSICAL EXAMINATION: General: Does not appear in any acute distress. Oral cavity is moist. He has strong cough. Lungs: Air entry bilaterally equal. No wheeze, rhonchi, crackles. Cardiovascular: S1, S2 normal. No murmur or gallop. Abdomen: Obese, soft, nontender. No lower extremity edema. He appears dishevelled. He has a urine catheter which I will remove. He is alert and oriented x3. He tells me that when he stops drinking, he starts feeling tremulous and that is why he starts drinking again. I counseled him about not drinking. Currently, his WBC count has increased. Hemoglobin of 10.3, platelet count is 65,000. He has almost normal electrolytes. Persistent transaminitis. Microbiology: No data. Imaging: No further data. ASSESSMENT AND PLAN: 1. Thrombocytopenia because of human immunodeficiency virus, fatty liver, alcohol abuse, status post 5 units of packed red blood cells, now improving. No signs of active bleeding. Dr. Milton has been consulted about the elevated EBV DNA pending further recommendations. His normocytic anemia is stable and his leukopenia has resolved. 2. Dysphagia and poor nutrition and inability to swallow oral secretion, now improving. He passed his swallow evaluation. Continue pureed diet, multivitamin tablet with thiamine. I will advance the diet as tolerated. 3. Acute encephalopathy because of liver cirrhosis, suspected acute hepatic encephalopathy, alcohol withdrawal and prolonged delirium tremens and hospital-acquired delirium has now resolved. I will give him haloperidol and quetiapine as needed. 4. Bilateral lower lobe pneumonia, status post 7 days of antibiotics on Zosyn which was stopped on April 07. DISPOSITION: I will continue to monitor the patient inside the hospital as we await rehab placement. Plan of care discussed with him and his sister yesterday. All of their questions have been answered. cc: Spencer Robins MD
[2019-04-09] MEDS: DUONEB (A & A) INH PRN (21:29)
--- NOTE | 2019-04-09 21:36 | PROVIDER PROGRESS NOTE ---
Progress Note S: No acute overnight events. Afebrile. No N/V, CP, SOB, abdominal pain. Patient walked the floor with PT today. Tolerated solid diet this AM. +BMs. No rectal bleeding. O: Last Vital Signs Temp 99.2 F 04/09/19 19:31 Pulse 87 04/09/19 19:31 Resp 20 04/09/19 19:31 BP 127/80 04/09/19 19:31 Pulse Ox 95 04/09/19 19:31 Height 6 ft Weight 166 lb 14.4 oz RA GEN: awake, NAD HEENT: +icterus, PERRL, MMM NECK: supple, no JVD CV: RRR, no murmurs PULM: improving coarse BS ABD: soft NT/ND, BS present, no ascites : leal in place EXT: no cce NEURO: significant improvement; no asterixis, AAOx3 (not date) LABS: 04/09/19 04/09/19 05:20 05:20 WBC 5.95 Hgb 10.3 L Plt Count 65 L D Neut % (Auto) 76.4 H Sodium 134 L Potassium 4.5 Chloride 97 L Carbon Dioxide 27 BUN 15 Creatinine 0.5 L Glucose 148 H Total Bilirubin 2.35 H AST 132 H ALT 61 H Alkaline Phosphatase 527 H Total Protein 5.9 L Albumin 2.8 L ASSESSMENT AND PLAN: Mr. Adams Chauhan is a 58-year-old gentleman with HIV/AIDS (CD4 69), h/o alcoholic pancreatitis and cirrhosis who initially presented to [facility], [place] with alcohol withdrawal and DT complicated by encephalopathy and pancytopenia. GI following for alcoholic cirrhosis and concern for PSE. His mental status has improved significantly. LFTs slightly increased. # AMS: significant improvement; cont lactulose & titrate for 2-3 BMs daily; hold next dose for >=4 BMs in 24 hrs; cont rifaximin 550mg BID; holding sedating meds; replete lytes prn # Alcoholic cirrhosis: trending LFTs; INR WNL; continue MVI, thiamine, folate # Pancytopenia: multifactorial; seen by hematology; improved; no overt bleeding # HIV/AIDS: on Atripla and abx per ID # Severe protein calorie malnutrition: on vegetarian diet # Aspiration pneumonia: s/p antibiotics Patient is ok to be discharged from GI perspective in the next 1-2 days with follow-up in 2 weeks. Please call with questions
[2019-04-09] MEDS: ATRIPLA PO SCH (22:00)
[2019-04-09] MEDS: LACTULOSE PO SCH (22:00)
[2019-04-10] MEDS: SEROQUEL PO PRN ×2 (01:39→21:09)
[2019-04-10] MEDS: DUONEB (A & A) INH PRN ×4 (03:10→21:20)
[2019-04-10] MEDS: THERA M PLUS PO SCH (08:14)
[2019-04-10] MEDS: LACTULOSE PO SCH ×2 (08:14→21:09)
[2019-04-10] MEDS: VITAMIN B-1 PO SCH (08:15)
[2019-04-10] MEDS: XIFAXAN PO SCH ×2 (08:15→21:09)
--- NOTE | 2019-04-10 13:59 | PROGRESS NOTE ---
DATE: 04/10/2019 INTERVAL HISTORY: No acute events overnight. He was able to walk in the hallway yesterday. He is feeling stronger. I have placed an order to discontinue PICC line if 2 peripheral IV lines have been accessed. VITALS: Temperature 98.5 degrees, pulse 89, respiratory rate 15, blood pressure 105/60. He is saturating 97% room air. PHYSICAL EXAMINATION: General: Does not appear in any acute distress. Oral cavity is moist. Lungs: Air entry bilaterally equal. No wheeze, rhonchi, or crackles. Cardiovascular: S1, S2 normal. No murmur, rub, or gallop. Abdomen: Obese, soft, nontender. Extremity: No lower extremity edema. He is alert and oriented x3. LABS: Suggestive of blood glucose of 112. ASSESSMENT AND PLAN: 1. Thrombocytopenia because of HIV, fatty liver, alcohol abuse, status post 5 units of platelets, now improving. No signs of active bleeding. His EBV DNA is elevated and the plan is to manage him by addressing his immune status and proper treatment of HIV. His leukopenia is resolved and anemia is stable. 2. Dysphagia and poor nutrition with inability to swallow oral secretion is now improving. This was likely in the setting of his encephalopathy and prolonged hospitalization. Continue pureed diet. Multivitamin tablets with thiamin. Advance diet as tolerated. 3. Acute encephalopathy in the setting of transaminitis, suspected acute hepatic encephalopathy and alcohol withdrawal with prolonged delirium tremens as well as hospital- acquired delirium, now has resolved and he is alert and oriented x3, which is his baseline. I will continue him on rifaximin and lactulose prophylactically. 4. I will continue his Atripla for his HIV treatment and outpatient follow up with his regular doctor. 5. Disposition: Rehab placement is pending. Plan of care discussed with him. His questions have been answered. cc: MD BASIA Ham
[2019-04-10] MEDS: ATRIPLA PO SCH (21:09)
[2019-04-11] MEDS: HALDOL IV PRN (02:21)
[2019-04-11 05:56] LABS: BASO# 0.03 X1000 (0.0-0.2); BASO% 0.5 % (0.0-0.8); EOS% 1.8 % (0.0-10.0); HEMOGLOBIN 11.1 g/dL (14.0-18.0); LYMPH# 0.63 X1000 (1.2-3.4); LYMPH% 11.4 % (20.5-51.1); MCH 33.3 PG (27-31); MCHC 33.6 g/dL (33-37); MCV 99.1 FL (81-99); MONO% 7.2 % (1.7-9.3); NEUT# 4.38 X1000 (1.4-6.5); NEUT% 79.1 % (42.2-75.2); PLT 83 X1000 (130-400); RBC 3.33 XMIL (4.7-6.1); RDW 16.2 % (11.5-14.5); WBC 5.54 X1000 (4.8-10.8)
[2019-04-11] MEDS: PROTONIX PO SCH (06:08)
[2019-04-11 06:23] LABS: AGAP 13; ALB/GLOB RATIO 1.1; ALKALINE PHOSPHATASE 542 U/L (32-122); BUN 8 mg/dL (8-22); CHLORIDE 95 mmol/L (98-107); COSMO 262; CREATININE 0.5 mg/dL (0.7-1.2); ESTIMATED GFR > 60; GLUCOSE 151 mg/dL (70-104); GOT 198 U/L (10-34); GPT 79 U/L (10-44); MAGNESIUM 1.9 mg/dL (1.5-2.7); PHOSPHORUS 3.5 mg/dL (2.7-4.5); POTASSIUM 5.3 mmol/L (3.5-5.1); SODIUM 130 mmol/L (136-145); TCO2 22 mmol/L (25-35); TOTAL BILIRUBIN 3.54 mg/dL (0.20-1.00); TOTAL PROTEIN 5.8 g/dL (6.3-8.3)
[2019-04-11] MEDS: XIFAXAN PO SCH ×2 (10:06→21:32)
[2019-04-11] MEDS: LACTULOSE PO SCH ×2 (10:06→21:32)
[2019-04-11] MEDS: VITAMIN B-1 PO SCH (10:06)
[2019-04-11] MEDS: THERA M PLUS PO SCH (10:06)
--- NOTE | 2019-04-11 12:33 | PROGRESS NOTE ---
DATE: 04/11/2019 INTERVAL HISTORY: No acute events. He was not able to sleep well, and received a dose of Seroquel and Haldol yesterday. I have already stopped both of them. SUBJECTIVE: He was able to walk in the hallway with a walker, and he did okay. He says he does not like the food here. He denies any new complaints. He is currently asleep. OBJECTIVE: Vital Signs: Temperature 98.4 degrees, pulse 88, respiratory rate 24, blood pressure 128/86, saturating 98% on room air. General: Appears cachectic. Has severe protein energy malnutrition. Not in any distress. Lungs: Air entry bilaterally equal. No wheeze, rhonchi, or crackles. Cardiovascular: S1, S2 normal. No murmur or gallop. Abdomen: Obese, soft, nontender. Extremities: No lower extremity edema. Neurologic: He is alert and oriented x3. LABORATORY DATA: Significant for worsening liver function tests, hyponatremia, hyperkalemia. ASSESSMENT AND PLAN: 1. Thrombocytopenia because of human immunodeficiency virus, fatty liver, alcohol abuse, status post 5 units of platelets, now improving. His leukopenia has resolved, and anemia is stable. 2. Abnormal liver function tests with transaminitis, hyperbilirubinemia. Initially, alcohol abuse was contributing to it, and it had shown a downward trend. Now, it has started rising again. He does not have abdominal tenderness on examination. I will follow up liver function tests tomorrow. 3. Dysphagia and poor nutrition due to chronic debility and alcohol abuse, now improving. Continue ongoing Speech Therapy evaluation and vegetarian diet with aspiration precautions as per Speech Therapy recommendations. 4. Encephalopathy due to transaminitis, alcohol withdrawal, prolonged delirium tremens, hospital- acquired delirium, has now resolved. He is currently at his baseline, which is alert and oriented x3. 5. Human immunodeficiency virus. Continue Atripla. His EBV DNA was elevated. However, the plan is to just address his underlying immunocompromising situation. 6. Disposition. Rehab placement is pending. I will appreciate Gastroenterology recommendation about abnormal liver function tests. Meanwhile, continue thiamine, multivitamin, lactulose, and rifaximin to prevent hepatic encephalopathy. cc: Spencer Robins MD [facility]
[2019-04-11] MEDS: DUONEB (A & A) INH PRN (21:20)
[2019-04-11] MEDS: ATRIPLA PO SCH (21:32)
[2019-04-11] MEDS ORDERED: BENADRYL IV ONE (22:27)
[2019-04-12] MEDS: PROTONIX PO SCH (06:21)
[2019-04-12 07:08] LABS: AGAP 12; ALB/GLOB RATIO 0.9; ALBUMIN 2.9 g/dL (3.5-5.0); ALKALINE PHOSPHATASE 498 U/L (32-122); BUN 5 mg/dL (8-22); CALCIUM 8.7 mg/dL (8.8-10.2); CHLORIDE 98 mmol/L (98-107); COSMO 264; CREATININE 0.4 mg/dL (0.7-1.2); ESTIMATED GFR > 60; GLUCOSE 111 mg/dL (70-104); GOT 157 U/L (10-34); GPT 74 U/L (10-44); POTASSIUM 4.1 mmol/L (3.5-5.1); SODIUM 133 mmol/L (136-145); TCO2 23 mmol/L (25-35); TOTAL BILIRUBIN 3.68 mg/dL (0.20-1.00)
[2019-04-12] MEDS: THERA M PLUS PO SCH (08:39)
[2019-04-12] MEDS: VITAMIN B-1 PO SCH (08:39)
[2019-04-12] MEDS: XIFAXAN PO SCH (08:39)
[2019-04-12] MEDS: LACTULOSE PO SCH ×2 (08:44→21:18)
--- NOTE | 2019-04-12 13:22 | GASTROENTEROLOGY PROGRESS NOTE ---
DATE: 04/12/2019 SUBJECTIVE: Patient resting in bed. He is feeling better. He is more awake and alert. He is answering all my questions. He is able to eat half of his meal. He is moving his bowels which are soft, green. He denies any nausea, vomiting, vomiting blood, or passing blood in the stools. Denies any fevers. OBJECTIVE: Vital signs 98.7 degrees, pulse of 85, respiratory 16, blood pressure 120/80 saturating 96% on room air. Body weight of 167 pounds 6 ounces. BMI 22.7 kg/m2. General: Moderately nourished, lying in bed, in no acute distress. HEENT mild pallor. Icteric sclerae. Neck: Supple. Abdomen: Soft, nondistended. No guarding or rebound. Extremities: No cyanosis, clubbing. Neurologic: He is alert, awake, oriented to time, place, and person. LABS: Yesterday was 11.1 33, white count 5.54 platelet count of 83,000. Sodium 133, potassium 4.1, chloride 98, bicarb 23, anion gap 12, BUN of 5, creatinine 0.4, glucose of 111, calcium is 8.7, total bilirubin 3.68. AST 157, ALT 74, alkaline phosphatase 498, total protein is 6, albumin of 2.9. Blood culture x2 negative 5 days from 04/06/2019. IMPRESSION AND PLAN: 1. Altered mental status. Significant improvement. Continue lactulose and titrate to 2 to 3 BMs in 24 hours. He will continue on Xifaxan 550 mg p.o. b.i.d., continue to follow electrolytes and replete as needed. 2. Alcoholic cirrhosis. Patient's last drink was 22 days ago, the day before admission. The patient was counseled about quitting alcohol completely we will continue to follow liver enzymes. We will continue multivitamin, folate and thiamine. 3. Pancytopenia is improved being followed by Hematology. 4. Thrombocytopenia is improved. 5. Human immunodeficiency virus/acquired immunodeficiency syndrome. He is on Atripla and antibiotics per Dr. Milton. 6. Protein-calorie malnutrition. He is eating better. His dietary intake has improved. 7. Aspiration pneumonia. He is on antibiotics. 8. Alcoholic pancreatitis aware. 9. Alcoholism. Patient counseled to quit alcohol completely. 10. The patient is living in a motel and he does not have any place to go at the moment. So we will ask web content & social media manager consult for him. 11. Above plan to the patient. All questions answered. Please call us with any further questions. 12. Also for gastrointestinal prophylaxis continue proton pump inhibitor and Protonix once daily and I start him on Iron C b.i.d. and multivitamin once daily for anemia. The above plans discussed with the patient. All questions answered. Please call us with any further questions. cc: Willis Lim MD MTDD
--- NOTE | 2019-04-12 14:54 | Diag Imaging Result Doc PS360 ---
EXAM: CHEST-2 VIEWS 04/12/2019 HISTORY: Worsening cough TECHNIQUE: PA and lateral chest COMMENT: There is a PICC line on the left with its tip in the superior vena cava. The inspiration is better than on 04/07/2019. IMPRESSION: No acute disease. Electronically signed by Ramesh Christine 04/12/2019 2:51 PM
--- NOTE | 2019-04-12 16:29 | PROGRESS NOTE ---
DATE: 04/12/2019 INTERVAL HISTORY: No acute events. The patient has been more alert and oriented. He states that he has had a lot of bowel movement. He denies any other complaints. We discussed about choosing a rehab, and I have conveyed this to Building Maintenance Technician team that he could make decisions for himself and we should ask him what rehab he would want to go to. He is complaining of increasing cough since yesterday, though he has not had any fever. I got the chest x-ray. We also discussed about cutting down on his medications for diarrhea. OBJECTIVE: Vitals: Temperature 98.2 degrees, pulse 85, respiratory rate 16, blood pressure 130/90, he is saturating 99% on room air. General: Does not appear in any acute distress. HEENT: Oral cavity is moist. Appears cachectic with severe protein energy malnutrition. Lungs: Air entry bilaterally equal. No wheeze, rhonchi, or crackles. Heart: S1, S2 normal. No murmur, rub, or gallop. Abdomen: Soft, nontender. Obese. No hepatosplenomegaly. Extremities: No lower extremity edema. Central Nervous System: He is alert and oriented x3. LABORATORY DATA: Suggestive of persistently elevated transaminitis. Resolution of hyperkalemia. MICROBIOLOGY: No positive data. IMAGING: The chest x-ray did not suggest any acute illness. ASSESSMENT AND PLAN: 1. Thrombocytopenia because of human immunodeficiency virus, fatty liver, alcohol abuse, status post 5 units of packed red blood cells, now improving. His leukopenia is resolved, and anemia is stable. 2. Abnormal liver function tests with transaminitis and hyperbilirubinemia in the setting of alcoholic fatty liver. He was counseled about not using alcohol in the future. Continue to monitor. 3. Dysphagia and poor nutrition due to chronic debility and alcohol abuse, now improved. Continue ongoing speech therapy.diet with aspiration precautions. 4. Encephalopathy due to heart transaminitis, alcohol withdrawal, prolonged delirium tremens, and hospital-acquired delirium, now has resolved. Currently, he is alert and oriented x3. 5. Human immunodeficiency virus. Continue Atripla. His EBV-DNA, though, was elevated. ID had recommended to manage his HIV. DISPOSITION: Awaiting rehabilitation placement. Plan of care discussed with him. All of his questions have been answered. He was strongly counseled about quitting alcohol. He understood it and agreed. cc: Spencer Robins MD MTDD
[2019-04-12] MEDS ORDERED: ATIVAN IV PRN (20:43)
[2019-04-12] MEDS: ATRIPLA PO SCH (21:18)
[2019-04-12] MEDS: ICAR-C PO SCH (21:22)
[2019-04-13] MEDS: PROTONIX PO SCH (06:30)
[2019-04-13] MEDS: DUONEB (A & A) INH PRN (07:33)
[2019-04-13] MEDS: LACTULOSE PO SCH ×2 (10:33→22:15)
[2019-04-13] MEDS: THERA M PLUS PO SCH (10:33)
[2019-04-13] MEDS: ICAR-C PO SCH ×2 (10:33→22:15)
[2019-04-13] MEDS: VITAMIN B-1 PO SCH (10:34)
[2019-04-13] MEDS: CENTRUM SILVER PO SCH (10:34)
--- NOTE | 2019-04-13 18:56 | PROGRESS NOTE ---
DATE: 04/13/2019 INTERVAL HISTORY: Chest x-ray did not detect any infiltrate. SUBJECTIVE: His coughing is better. VITALS: Temperature 97.8 degrees, pulse 83, respiratory 20, blood pressure 110/73 saturating 100% room air. PHYSICAL EXAMINATION: General: Does not appear in acute distress. Oral cavity is moist. Air entry bilateral equal, no wheeze, rhonchi. S1, S2 normal no murmur or gallop. Abdomen: Obese, soft, nontender. No lower extremity edema. He is alert, oriented x3. LABS: Blood sugar is 145. ASSESSMENT AND PLAN: 1. Thrombocytopenia. 2. Pancytopenia. 3. Abnormal liver function test. 4. Dysphagia and poor nutrition. 5. Alcohol abuse with prolonged delirium tremens. 6. Human immunodeficiency virus. PLAN: Continue iron, multivitamin, folic acid. He was counseled about not using alcohol in the future. Continue his home Atripla for HIV . Initial plan was to discharge him to back to his motel today however patient's sister tells me that the person he was living with in [facility] has already moved out so he does not have a place to go to. Patient's sister and patient currently working on finding a place for him. Earlier in the day I was informed by the [employer] that his insurance has lapsed and even though if his insurance gets reinstated which is in process they may not approve him to go to rehab since he was able to walk 750 feet. Plan of care discussed with the patient. I am awaiting his discussion with his sister to decide whether I could discharge him today or not. cc: Spencer Robins MD
--- NOTE | 2019-04-13 21:26 | PROVIDER PROGRESS NOTE ---
Progress Note S: No acute overnight events. Afebrile. Patient denies complaints. O: Last Vital Signs Temp 97.5 F L 04/13/19 19:57 Pulse 74 04/13/19 19:57 Resp 16 04/13/19 19:57 BP 113/72 04/13/19 19:57 Pulse Ox 100 04/13/19 19:57 Height 6 ft Weight 163 lb 6.4 oz RA RA GEN: awake, NAD HEENT: +icterus, PERRL, MMM NECK: supple, no JVD CV: RRR, no murmurs PULM: normal WOB, no wheezing ABD: soft NT/ND, BS present, no ascites : leal in place EXT: no cce NEURO: significant improvement; no asterixis, AAOx3 LABS: no labs ASSESSMENT AND PLAN: Mr. Adams Chauhan is a 58-year-old gentleman with HIV/AIDS (CD4 69), h/o alcoholic pancreatitis and cirrhosis who initially presented to [facility] with alcohol withdrawal and DT complicated by encephalopathy and pancytopenia. GI following for alcoholic cirrhosis and concern for PSE. His mental status is back to baseline. # AMS: resolved; cont lactulose & titrate for 2-3 BMs daily; hold next dose for >=4 BMs in 24 hrs; cont rifaximin 550mg BID; holding sedating meds; replete lytes prn # Alcoholic cirrhosis: continue MVI, thiamine, folate; continued ETOH cessation counseling # Pancytopenia: multifactorial; seen by hematology; improved; no overt bleeding # HIV/AIDS: on Atripla # Severe protein calorie malnutrition: on vegetarian diet # Aspiration pneumonia: s/p antibiotics Will sign off. Please call with questions. Follow-up in GI clinic in 2 weeks.
[2019-04-13] MEDS: ATRIPLA PO SCH (22:14)
--- NOTE | 2019-04-14 00:11 | DISCHARGE SUMMARY ---
ADMISSION DATE: 03/24/2019 DISCHARGE DATE: DATE OF DISCHARGE: Likely 04/13/2019 or 04/16/2019 DISCHARGE DISPOSITION: Likely back to his motel. DISCHARGE CONDITION: Hemodynamically stable, alert, oriented x3, able to walk without anyone's help. He is able to eat, is denying nausea, vomiting, abdominal pain, chest pain, shortness of breath. DISCHARGE DIAGNOSIS: 1. Thrombocytopenia because of human immunodeficiency virus, fatty liver, alcohol abuse, status post 5 units of platelet transfusion. 2. Pancytopenia because of above-mentioned problems. 3. Transaminitis and hyperbilirubinemia due to alcoholic fatty liver. 4. Dysphagia due to prolonged debility and poor nutrition. 5. Prolonged encephalopathy likely toxic metabolic in the setting of his alcohol withdrawal and prolonged delirium tremens with hospital-acquired delirium and suspected alcoholic encephalopathy . 6. Human immunodeficiency virus acquired immunodeficiency syndrome with CD4 count of 69 with positive Larry-Robertson virus DNA. DISCHARGE MEDICATIONS: Atripla 1 tablet daily, Centrum Silver 1 tablet daily, Icar-C 1 tablet b.i.d., lactulose 30 mL b.i.d. goal 1 to 2 soft formed bowel movements daily, pantoprazole 40 mg daily, thiamine 100 mg daily. VITALS: At the time of discharge temperature 97.8 degrees, pulse 83, respiratory 20, blood pressure 110/73 saturating 100% room air. PHYSICAL EXAMINATION: General: Has severe protein energy malnutrition not in any acute distress. Oral cavity is moist. Air entry bilateral equal no wheeze or crackles. S1 normal, no murmur or gallop. Abdomen: Soft, nontender, obese. No lower extremity edema. He is alert, oriented x3. SIGNIFICANT LABS: He did have leukopenia with WBC count as low as 1.9, which was increased to 5.5, his hemoglobin at the time of discharge 11.1, platelet is 83,000. Sodium is 132, potassium 4.5, BUN 5, creatinine 0.4, blood glucose 145, total bilirubin 3.6, AST 157, ALT 74. Significant microbiology, blood culture did not have any growth. Significant imaging , abdomen ultrasound on presentation had fatty infiltration of the liver without any evidence of focal liver lesion and there was also mildly prominent spleen. Head CT on admission did not have any acute intracranial pathology. Renal ultrasound for hematuria had detected small amount of ascites and otherwise it was normal. Echocardiogram has suggested normal left ventricular systolic function. No diastolic dysfunction. No evidence of any significant valvular pathology. Chest x-ray on 04/12/2019 had no acute disease. HOSPITAL COURSE SUMMARY: Mr. Chauhan is 58 years old origin man who initially had presented to [facility] on 03/24/2019 for abdominal pain, nausea and vomiting with elevated bilirubin and was admitted in [facility] for alcohol withdrawal however his encephalopathy did not improve and later on he was transferred over to [facility] [place] ICU for neurology evaluation. Neurology had evaluated the patient and thought that his altered mental status was likely related to alcohol withdrawal, delirium tremens and global metabolic encephalopathy. He has had a prolonged hospital admission with prolonged delirium tremens and encephalopathy complicated by hepatic encephalopathy and hospital-acquired delirium which was managed supportively. Later on he had started regaining his consciousness and was alert, oriented x3. He also had a poor nutrition and he was treated with oropharyngeal candidiasis with IV fluconazole. Later on his dysphagia had improved and he was able to tolerate pureed diet without any difficulty. He had also developed severe thrombocytopenia causing hematuria and it was thought to be related to his HIV, alcoholic fatty liver and he needed about 5 units of platelet transfusion following which his platelet count had remained stable and started improving. At the time of discharge detailed discharge instructions were provided. Initial plan was for him to go to rehab however he had his insurance was revoked on April 07 though appeals for reinstate appeal to get insurance reinstated were made, they are still pending and patient had eventually become strong enough to walk in the hallway without any support, it was possible that insurance would reject anyway. After talking with patient and sister it was decided to let patient go back to his motel. He was counseled about not drinking alcohol in future. His plans were to go back to [place] for rehab. TIME SPENT: More than 30 minutes. cc: Spencer Robins MD
[2019-04-14] MEDS: PROTONIX PO SCH ×2 (06:20→06:21)
[2019-04-14 07:51] VITALS: BP 103/65
[2019-04-14] MEDS: CENTRUM SILVER PO SCH (11:05)
[2019-04-14] MEDS: VITAMIN B-1 PO SCH (11:05)
[2019-04-14] MEDS: ICAR-C PO SCH (11:05)
[2019-04-14] MEDS: LACTULOSE PO SCH (11:05)
[2019-04-14] MEDS: THERA M PLUS PO SCH (11:05)
== END 2019-04-14 12:38 | disposition home or self-care (01) | DRG 896 ==
LOC: P.DIRADM 13:04 → SUATTDRO 13:04 → P.MEDSURG 13:06 → P.ICU 03-25 18:34 → ICU 03-29 13:51 → 3S 04-04 22:53 → 4N 04-06 15:00
PROVIDERS: ATTEND Internal Medicine